=== PATIENT | female | born 1940 | race Caucasian/White ===

== ENCOUNTER 2016-11-06 03:12 | Inpatient (IN) | payer MEDICARE, OTHER ==
[2016-11-06 03:50] LABS: BASO # 0.1 K/uL (0.0-0.2); BASO % 1.4 % (0.0-2.0); EOS # 0.4 K/uL (0.0-0.7); EOS % 4.8 % (0.0-4.0); HEMATOCRIT 42.8 % (34.0-47.0); LYMPH # 2.3 K/uL (1.0-4.3); LYMPH % 26.9 % (20.0-40.0); MEAN CELL VOLUME 80.8 fL (81.0-99.0); MEAN CORPUSCULAR HEMOGLOBIN 26.1 pg (27.0-31.0); MEAN CORPUSCULAR HGB CONC 32.2 g/dL (33.0-37.0); MEAN PLATELET VOLUME 8.9 fL (7.2-11.7); MONO # 0.5 K/uL (0.0-0.8); MONO % 5.5 % (0.0-10.0); RED CELL DISTRIBUTION WIDTH 14.2 % (11.5-14.5); WHITE BLOOD COUNT 8.5 K/uL (4.8-10.8)
[2016-11-06 03:56] LABS: CHLORIDE 96 mmol/L (98-107); POTASSIUM 3.6 mmol/L (3.6-5.2); SODIUM 135 mmol/L (132-148)
[2016-11-06 03:58] LABS: GFR AFRICAN-AMERICAN > 60; INR 0.9
[2016-11-06 03:59] LABS: ALB/GLOB RATIO 1.1 (1.0-2.1); ALKALINE PHOSPHATASE 99 U/L (38-126); ALT/SGPT 31 U/L (9-52); AST/SGOT 21 U/L (14-36); BILIRUBIN,TOTAL 0.5 mg/dL (0.2-1.3); BLOOD UREA NITROGEN 18 mg/dL (7-17); CARBON DIOXIDE 22 mmol/L (22-30); GLUCOSE,RANDOM 174 mg/dL (65-105); TOTAL PROTEIN 7.3 g/dL (6.3-8.3)
--- NOTE | 2016-11-06 04:41 | C.PDOC ---
History Of Present Illness 76 year old female with a history of asthma presents to the ED with complaints of SOB and coughing at home beginning prior to arrival. Patient denies chest pain, fever, or other complaints at this time. Chief Complaint (Nursing): Shortness Of Breath History Per: Patient History/Exam Limitations: no limitations Onset/Duration Of Symptoms: Hrs Current Symptoms Are (Timing): Still Present Current Respiratory Medications: See Home Med List Associated Symptoms: denies: Fever, Chills, Sweating Reports Recently: Treated By A Physician Recent travel outside of the [place]: No Past Medical History Reviewed: Historical Data, Nursing Documentation, Vital Signs Vital Signs: Last Vital Signs Temp 98 F 11/06/16 03:19 Pulse 77 11/06/16 06:33 Resp 20 11/06/16 06:33 BP 137/56 L 11/06/16 06:33 Pulse Ox 98 11/06/16 06:45 - Medical History PMH: Diabetes, HTN, TIA Family History: States: Unknown Family Hx - Social History Hx Tobacco Use: No Hx Alcohol Use: No Hx Substance Use: No - Immunization History Hx Tetanus Toxoid Vaccination: No Hx Influenza Vaccination: No Hx Pneumococcal Vaccination: No Review Of Systems Constitutional: Negative for: Fever, Chills Cardiovascular: Negative for: Chest Pain Respiratory: Positive for: Cough, Shortness of Breath Gastrointestinal: Negative for: Nausea, Vomiting Neurological: Negative for: Weakness, Numbness Physical Exam - Physical Exam Appears: Non-toxic, Other (Patient is moderately dyspneic ) Skin: Warm, Dry Head: Atraumatic Eye(s): bilateral: Normal Inspection, PERRL, EOMI Oral Mucosa: Moist Neck: Other (Positive JVD ) Chest: Symmetrical, No Deformity Cardiovascular: Rhythm Regular Respiratory: Rales (bilateral rales, more so in the left lung ) Gastrointestinal/Abdominal: Soft, No Tenderness, No Distention, No Guarding, No Rebound Extremity: No Tenderness, No Pedal Edema, No Calf Tenderness, Capillary Refill ( good capillary refill, less than 2 seconds. ), No Swelling Neurological/Psych: Oriented x3, Normal Speech, Normal Cognition, Normal Cranial Nerves, Normal Motor, Normal Sensation ED Course And Treatment - Laboratory Results Result Diagrams: 11/06/16 03:45 11/06/16 03:45 ECG: Interpreted By Me, Viewed By Me ECG Rhythm: Sinus Rhythm, 1st Degree HB, L BBB, PVC ECG Interpretation: No Acute Changes Interpretation Of ECG: NSR with 1st degree av block, LBBB , no acute ST_T changes Rate From EC O2 Sat by Pulse Oximetry: 98 (room air ) Pulse Ox Interpretation: Normal - Radiology CXR: Interpreted by Me, Viewed By Me CXR Interpretation: Yes: Infiltrates, Other (pulm. congestion) - CT Scan/US CT angio Other Rad Studies (CT/US): Read By Radiologist, Radiology Report Reviewed CT/US Interpretation: IMPRESSION: 1. No CT evidence of pulmonary embolism. 2. Interstitial and alveolar opacities. DDX: Pulmonary edema, pneumonia. Clinical correlation is. needed. Disposition Discussed With Dr.: Cynthia Wilson Counseled Patient/Family Regarding: Diagnosis - Disposition Disposition: HOSPITALIZED Disposition Time: 07:00 Condition: STABLE Forms: [facility] (H[place]er) - Clinical Impression Clinical Impression: Dyspnea, Respiratory distress, Pneumonia, Pulmonary edema - Scribe Statement The provider has reviewed the documentation as recorded by the Scribdhaval Flores All medical record entries made by the Scribe were at my direction and personally dictated by me. I have reviewed the chart and agree that the record accurately reflects my personal performance of the history, physical exam, medical decision making, and the department course for this patient. I have also personally directed, reviewed, and agree with the discharge instructions and disposition.
[2016-11-06] MEDS ORDERED: Iodixanol 320 mg/ml 150 ml Bottle IV ONE (04:43)
[2016-11-06] MEDS ORDERED: cefTRIAXone IV 1 gm in Dextros 50 ML IVPB ONE ×2 (06:43→06:50)
[2016-11-06] MEDS ORDERED: Azithromycin 500mg/250ML NS 500 MG/250 ML BAG IV STA (06:43)
--- NOTE | 2016-11-06 06:43 | CT ---
EXAM: CT Angiography Chest With Intravenous Contrast CLINICAL HISTORY: 76 years old, female; Signs and symptoms; Shortness of breath; Additional info: Sob/ elevated d-dimer TECHNIQUE: Axial computed tomographic angiography images of the chest with intravenous contrast using pulmonary embolism protocol. This CT exam was performed using one or more of the following dose reduction techniques: automated exposure control, adjustment of the mA and/or kV according to patient size, and/or use of iterative reconstruction technique. MIP reconstructed images were created and reviewed. Coronal and sagittal reformatted images were created and reviewed. CONTRAST: 100 mL of VISIPAQUE administered intravenously. COMPARISON: CR - RIBS AND CHEST LT 03/29/2015 10:24:13 PM FINDINGS: Pulmonary arteries: No pulmonary embolism. Aorta: Mild atherosclerotic disease. No aneurysm. Inferior vena cava: Retrograde filling of IVC and hepatic veins. Lungs: Mild mosaic pattern of lung parenchyma. Mild interlobular septal thickening. Scattered patchy groundglass/airspace opacities, RIGHT greater than LEFT. Pleural space: No significant effusion. No pneumothorax. Heart: Mild cardiomegaly. No significant pericardial effusion. Coronary artery calcifications. Mediastinum: Probable small hiatal hernia. Bones/joints: No acute fracture. No dislocation. Soft tissues: Few small breast calcifications. Lymph nodes: No pathologically enlarged lymph nodes. IMPRESSION: 1. No CT evidence of pulmonary embolism. 2. Interstitial and alveolar opacities. DDX: Pulmonary edema, pneumonia. Clinical correlation is needed. 3. Incidental/non-acute findings are described above.
[2016-11-06] MEDS ORDERED: Azithromycin 500mg/250ML NS 500 MG/250 ML BAG IVPB ONE (06:59)
--- NOTE | 2016-11-06 08:37 | RAD ---
PROCEDURE: CHEST RADIOGRAPH, 1 VIEW HISTORY: Shortness of breath COMPARISON: 03/29/2015 FINDINGS: LUNGS: Dense consolidative opacities throughout the right lung as well as at the left lung base suggestive for edema and or infiltrate. Clinical correlation. Question small bilateral pleural effusions. PLEURA: As above. CARDIOVASCULAR: Cardiomegaly. OSSEOUS STRUCTURES: Degenerative changes in the spine and shoulders. Question calcific tendinopathy of the right proximal humerus. VISUALIZED UPPER ABDOMEN: Normal. OTHER FINDINGS: None. IMPRESSION: Dense consolidative opacities throughout the right lung as well as at the left lung base suggestive for edema and or infiltrate. Clinical correlation. Question small bilateral pleural effusions.
[2016-11-06] MEDS: Albuterol-Ipratrop 3 mg / 0.5 (3 ml) UD INH SCH ×2 (13:34→19:08)
[2016-11-06] MEDS: Enoxaparin 40 mg Syringe SC SCH (13:39)
[2016-11-06] MEDS: Pantoprazole 40 mg EC Tab PO SCH (13:42)
[2016-11-06] MEDS: Azithromycin 500 MG in Sodium Chloride 0.9% 250 ML IVPB SCH (13:42)
[2016-11-06] MEDS: Fluticasone-Salmeterol 250-50mcg Diskus INH SCH (19:07)
[2016-11-06] MEDS ORDERED: Rosuvastatin Calcium 2.5 mg Tab PO SCH (22:00)
--- NOTE | 2016-11-06 22:11 | CP.PCM.HP ---
History of Present Illness - History of Present Illness History of Present Illness: 76 yo F with PMH of HTN, DM, TIA and asthma presents to ED with c/o dyspnea and cough. 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 Denies fever, chills, chest pain, nasal symptoms, sore throat, n/v/d, abdominal pain . Abnormal CXR noted on presentation Present on Admission - Present on Admission Any Indicators Present on Admission: No Review of Systems - Respiratory Respiratory: Cough, Dyspnea Past Patient History - Past Medical History & Family History Past Medical History?: Yes - Past Social History Smoking Status: Never Smoked - CARDIAC Hx Hypertension: Yes - PULMONARY Hx Respiratory Disorders: No - NEUROLOGICAL Hx Transient Ischemic Attacks (TIA): Yes - HEENT Hx HEENT Problems: No Other/Comment: left ear problems hearing - ENDOCRINE/METABOLIC Hx Diabetes Mellitus Type 1: No Hx Diabetes Mellitus Type 2: Yes - HEMATOLOGICAL/ONCOLOGICAL Hx Blood Disorders: No - INTEGUMENTARY Hx Dermatological Problems: No - MUSCULOSKELETAL/RHEUMATOLOGICAL Hx Musculoskeletal Disorders: No Hx Falls: Yes - GASTROINTESTINAL Hx Gastrointestinal Disorders: No - GENITOURINARY/GYNECOLOGICAL Hx Genitourinary Disorders: No - PSYCHIATRIC Hx Substance Use: No - SURGICAL HISTORY Hx Cardiac Catheterization: Yes - ANESTHESIA Hx Anesthesia: Yes Hx Anesthesia Reactions: No Hx Malignant Hyperthermia: No Meds Home Medications: Home Medication List Medication Instructions Recorded Confirmed Type Azithromycin [Zithromax] 250 mg PO DAILY #4 tab 11/11/16 Rx Methylprednisolone [Medrol Dose 4 mg PO DAILY #21 mg 11/11/16 Rx Pack (21 tabs)] Allergies/Adverse Reactions: Allergies Allergy/AdvReac Type Severity Reaction Status Date / Time diazepam [From Valium] Allergy Verified 11/06/16 03:23 Physical Exam - Constitutional Appears: Well - Head Exam Head Exam: ATRAUMATIC, NORMAL INSPECTION, NORMOCEPHALIC - Eye Exam Eye Exam: EOMI, Normal appearance, PERRL - ENT Exam ENT Exam: Mucous Membranes Moist, Normal Exam - Neck Exam Neck exam: Positive for: Normal Inspection - Respiratory Exam Respiratory Exam: Decreased Breath Sounds - Cardiovascular Exam Cardiovascular Exam: REGULAR RHYTHM - GI/Abdominal Exam GI & Abdominal Exam: Diminished Bowel Sounds, Soft - Rectal Exam Rectal Exam: Deferred - Neurological Exam Neurological exam: Alert, Oriented x3 Results - Vital Signs Recent Vital Signs: Last Vital Signs Temp 98.6 F 11/06/16 15:12 Pulse 84 11/06/16 16:00 Resp 20 11/06/16 15:12 BP 135/50 L 11/06/16 17:34 Pulse Ox 99 11/06/16 15:12 - Labs Result Diagrams: 11/06/16 03:45 11/06/16 03:45 Labs: Laboratory Results - last 24 hr 11/06/16 11/06/16 11/06/16 08:40 11:13 16:44 POC Glucose (mg/dL) 146 H 171 H 136 H 11/06/16 21:03 POC Glucose (mg/dL) 140 H Assessment & Plan (1) Confusion Status: Acute (2) Diabetes mellitus Status: Acute (3) Dizziness Status: Acute (4) Fall due to stumbling Status: Acute (5) Foot injury Status: Acute (6) HTN (hypertension) Status: Chronic (7) Nausea Status: Acute (8) Positional vertigo Status: Acute (9) Prophylactic measure Status: Acute (10) Vertigo Status: Acute (11) Wrist injury Status: Acute - Assessment and Plan (Free Text) Plan: solumedrol duoneb advair iv abx lasix arnulfo other meds as ordered f/u labs and imaging cardio pulm
[2016-11-07] MEDS: Albuterol-Ipratrop 3 mg / 0.5 (3 ml) UD INH SCH ×4 (01:53→19:04)
[2016-11-07] MEDS: Fluticasone-Salmeterol 250-50mcg Diskus INH SCH (07:48)
[2016-11-07] MEDS: Azithromycin 500 MG in Sodium Chloride 0.9% 250 ML IVPB SCH (09:44)
[2016-11-07] MEDS: Pantoprazole 40 mg EC Tab PO SCH (09:45)
[2016-11-07] MEDS: Enoxaparin 40 mg Syringe SC SCH (09:45)
--- NOTE | 2016-11-07 12:29 | CP.PCM.CON ---
History of Present Illness - History of Present Illness History of Present Illness: Consult requested for evaluation of SOB and CHF exacerbation with bilateral pulmonary infiltrates HPI: 76-year-old female with past medical history significant for hypertension diabetes mellitus COPD presenting with complains of shortness of breath and productive cough. Patient being consulted for evaluation of CHF exacerbation. On initial presentation chest x-ray showed dense opacities throughout the right lung and left lung base. CT angiogram was done which ruled out PE showing groundglass opacities more on the right. Patient denied having any fever chills chest pain abdominal pain hemoptysis. EKG done on presentation showed normal sinus rhythm first degree AV block with PVCs left bundle branch. At baseline she has NYHA functional class I/II dyspnea. Denies any chest pains. Review of Systems - Review of Systems All systems: reviewed and no additional remarkable complaints except - Constitutional Constitutional: As Per HPI, Fatigue - EENT Eyes: As Per HPI. absent: Blind Spots, Blurred Vision, Change in Vision, Decreased Night Vision, Diplopia, Discharge, Dry Eye, Exophthalmos, Floaters, Irritation, Itchy Eyes, Loss of Peripheral Vision, Pain, Photophobia, Requires Corrective Lenses, Sees Flashes, Spots in Vision, Tunnel Vision, Other Visual Disturbances, Loss of Vision, Other Ears: As Per HPI. absent: Decreased Hearing, Ear Discharge, Ear Pain, Tinnitus , Abnormal Hearing, Disequilibrium, Dizziness, Other Nose/Mouth/Throat: As Per HPI. absent: Epistaxis, Nasal Congestion, Nasal Discharge, Nasal Obstruction, Nasal Trauma, Nose Pain, Post Nasal Drip, Sinus Pain, Sinus Pressure, Bleeding Gums, Change in Voice, Dental Pain, Dry Mouth, Dysphagia, Halitosis, Hoarsness, Lip Swelling, Mouth Lesions, Mouth Pain, Odynophagia, Sore Throat, Throat Swelling, Tongue Swelling, Facial Pain, Neck Pain, Neck Mass, Other - Breasts Breasts: As Per HPI - Cardiovascular Cardiovascular: Dyspnea, Pedal Edema. absent: As Per HPI, Acrocyanosis, Chest Pain, Chest Pain at Rest, Chest Pain with Activity, Claudication, Diaphoresis, Dyspnea on Exertion, Edema, Irregular Heart Rhythm, Pain Radiating to Arm/Neck/ Jaw, Leg Edema, Leg Ulcers, Lightheadedness, Orthopnea, Palpitations, Paroxysmal Nocturnal Dyspnea, Radiating Pain, Rapid Heart Rate, Slow Heart Rate , Syncope, Other - Respiratory Respiratory: As Per HPI, Cough, Dyspnea on Exertion, Wheezing, Excessive Mucous Production, Change in Mucous Color. absent: Dyspnea, Hemoptysis, Snoring, Stridor, Pain on Inspiration, Chest Congestion, Pain with Coughing, Other - Genitourinary Genitourinary: As Per HPI - Reproductive: Female Reproductive:Female: As Per HPI - Musculoskeletal Musculoskeletal: As Per HPI - Integumentary Integumentary: As Per HPI. absent: Acne, Alopecia, Bleeding Lesions, Change in Hair, Change in Nails, Change in Pigmentation, Changing Lesions, Dry Skin, Erythema, Furuncle, Hirsutism, Lesions, New Lesions, Non-Healing Lesions, Photosensitivity, Pruritus, Rash, Skin Pain, Skin Ulcer, Sores, Striae, Swelling , Unusual Bruising, Wounds, Jaundice, Other - Neurological Neurological: As Per HPI. absent: Abnormal Gait, Abnormal Hearing, Abnormal Movements, Abnormal Speech, Behavioral Changes, Burning Sensations, Confusion, Convulsions, Disequilibrium, Dizziness, Numbness, Focal Weakness, Frequent Falls , Headaches, Lack of Coordination, Loss of Vision, Memory Loss, Paresthesias, Radicular Pain, Restless Legs, Sensory Deficit, Syncope, Tingling, Tremor, Vertigo, Weakness, Other Visual Disturbances, Other - Psychiatric Psychiatric: As Per HPI. absent: Abnormal Sleep Pattern, Anhedonia, Anxiety, Auditory Hallucinations, Behavioral Changes, Change in Appetite, Change in Libido, Confusion, Depression, Difficulty Concentrating, Hallucinations, Homicidal Ideation, Hopelessness, Irritability, Memory Loss, Mood Swings, Panic Attacks, Paranoia, Suicidal Ideation, Visual Hallucinations, Tactile Hallucinations, Other - Endocrine Endocrine: As Per HPI. absent: Change in Body Appearance, Change in Libido, Cold Intolorance, Deepening of Voice, Excessive Sweating, Fatigue, Flushing, Heat Intolorance, Increase in Ring/Shoe/Hat Size, Palpitations, Polydipsia, Polyphagia, Polyuria, Other - Hematologic/Lymphatic Hematologic: As Per HPI Past Patient History - Past Medical History & Family History Past Medical History?: Yes Pertinent Family History: +ve for HTN and DM - Past Social History Smoking Status: Never Smoked - CARDIAC Hx Hypertension: Yes - PULMONARY Hx Respiratory Disorders: No - NEUROLOGICAL Hx Transient Ischemic Attacks (TIA): Yes - HEENT Hx HEENT Problems: No Other/Comment: left ear problems hearing - ENDOCRINE/METABOLIC Hx Diabetes Mellitus Type 1: No Hx Diabetes Mellitus Type 2: Yes - HEMATOLOGICAL/ONCOLOGICAL Hx Blood Disorders: No - INTEGUMENTARY Hx Dermatological Problems: No - MUSCULOSKELETAL/RHEUMATOLOGICAL Hx Musculoskeletal Disorders: No Hx Falls: Yes - GASTROINTESTINAL Hx Gastrointestinal Disorders: No - GENITOURINARY/GYNECOLOGICAL Hx Genitourinary Disorders: No - PSYCHIATRIC Hx Substance Use: No - SURGICAL HISTORY Hx Cardiac Catheterization: Yes - ANESTHESIA Hx Anesthesia: Yes Hx Anesthesia Reactions: No Hx Malignant Hyperthermia: No Meds Home Medications: Home Medication List Medication Instructions Recorded Confirmed Type Azithromycin [Zithromax] 250 mg PO DAILY #4 tab 11/11/16 Rx Methylprednisolone [Medrol Dose 4 mg PO DAILY #21 mg 11/11/16 Rx Pack (21 tabs)] Allergies/Adverse Reactions: Allergies Allergy/AdvReac Type Severity Reaction Status Date / Time diazepam [From Valium] Allergy Verified 11/06/16 03:23 - Medications Medications: Current Medications Albuterol/Ipratropium (Duoneb 3 Mg/0.5 Mg (3 Ml) Ud) 3 ml INH RQ6 [facility] Last Admin: 11/07/16 07:48 Dose: 3 ml Amlodipine Besylate (Norvasc) 10 mg PO DAILY [facility] Last Admin: 11/07/16 09:45 Dose: 10 mg Carvedilol (Coreg) 12.5 mg PO BID [facility] Last Admin: 11/07/16 09:45 Dose: 12.5 mg Enoxaparin Sodium (Lovenox) 40 mg SC DAILY [facility] Last Admin: 11/07/16 09:45 Dose: 40 mg Glipizide (Glucotrol) 10 mg PO DAILY [facility] Last Admin: 11/07/16 09:45 Dose: 10 mg Hydrochlorothiazide (Microzide) 12.5 mg PO DAILY [facility] Last Admin: 11/07/16 09:45 Dose: 12.5 mg Azithromycin 500 mg/ Sodium (Chloride) 250 mls @ 250 mls/hr IVPB DAILY [facility] Last Admin: 11/07/16 09:44 Dose: 250 mls/hr Ceftriaxone Sodium 1 gm/ (Sodium Chloride) 100 mls @ 100 mls/hr IVPB Q12H [facility] Last Admin: 11/07/16 05:09 Dose: 100 mls/hr Lisinopril (Zestril) 40 mg PO DAILY [facility] Last Admin: 11/07/16 09:45 Dose: 40 mg Losartan Potassium (Cozaar) 100 mg PO DAILY [facility] Last Admin: 11/07/16 09:45 Dose: 100 mg Metformin HCl (Glucophage) 500 mg PO BID [facility] Last Admin: 11/07/16 09:45 Dose: 500 mg Pantoprazole Sodium (Protonix Ec Tab) 40 mg PO DAILY [facility] Last Admin: 11/07/16 09:45 Dose: 40 mg Pneumococcal Polyvalent Vaccine (Pneumovax 23 Vaccine) 0.5 ml IM .ONCE ONE Stop: 11/08/16 10:01 Rosuvastatin Calcium (Crestor) 5 mg PO HS [facility] Last Admin: 11/06/16 23:40 Dose: 5 mg Fluticasone/Salmeterol (Advair Diskus 250/50) 1 puff INH RQ12 [facility] Last Admin: 11/07/16 07:48 Dose: 1 puff Physical Exam - Constitutional Appears: Well - Head Exam Head Exam: ATRAUMATIC, NORMAL INSPECTION, NORMOCEPHALIC - Eye Exam Eye Exam: EOMI, Normal appearance, PERRL Pupil Exam: NORMAL ACCOMODATION, PERRL - ENT Exam ENT Exam: Mucous Membranes Moist, Normal Exam - Neck Exam Neck exam: Positive for: Normal Inspection - Respiratory Exam Respiratory Exam: Clear to Auscultation Bilateral, Prolonged Expiratory Phase, NORMAL BREATHING PATTERN - Cardiovascular Exam Cardiovascular Exam: REGULAR RHYTHM, RRR, +S1, +S2, Systolic Murmur - GI/Abdominal Exam GI & Abdominal Exam: Normal Bowel Sounds, Soft. absent: Tenderness - Extremities Exam Extremities exam: Positive for: normal inspection - Back Exam Back exam: NORMAL INSPECTION - Neurological Exam Neurological exam: Alert, CN II-XII Intact, Oriented x3, Reflexes Normal - Psychiatric Exam Psychiatric exam: Normal Affect, Normal Mood - Skin Skin Exam: Dry, Intact, Normal Color, Warm Results - Vital Signs Recent Vital Signs: Last Vital Signs Temp 98.0 F 11/07/16 07:36 Pulse 80 11/07/16 07:50 Resp 18 11/07/16 07:36 BP 136/63 11/07/16 09:45 Pulse Ox 98 11/07/16 07:36 - Labs Result Diagrams: 11/06/16 03:45 11/06/16 03:45 Labs: Laboratory Results - last 24 hr 0811/06/16 11/07/16 16:44 21:03 06:35 POC Glucose (mg/dL) 136 H 140 H 109 11/07/16 11:22 POC Glucose (mg/dL) 189 H Assessment & Plan (1) CHF (congestive heart failure) Assessment and Plan: CHFpEF check Echo sx 2' to pulmonary distress from pneumonia continue abx / bronchodilators Status: Acute (2) Dyspnea Assessment and Plan: 2' to pneumonia and diastolic CHF cont abx BP meds Status: Acute (3) HTN (hypertension) Assessment and Plan: cont with home meds for now Status: Acute (4) Pulmonary edema Status: Acute (5) Respiratory distress Status: Acute
--- NOTE | 2016-11-07 14:22 | CARD ---
APPROVED REPORT EKG Measurement Heart [id number] <Conclusion> Sinus rhythm with 1st degree AV block with frequent premature ventricular complexes Left axis deviation Left bundle branch block Abnormal ECG
--- NOTE | 2016-11-07 15:34 | CP.PCM.CON ---
History of Present Illness - History of Present Illness History of Present Illness: Reason for consultation: Respiratory distress; CT shows pulmonary edema vs possible pneumonia Patient is a 76 year old female with past medical history of asthma, DM, and HTN who was admitted for SOB and productive cough. Consulted due to CXR findings showing dense consolidative opacities throughout right lung and left lung base. CT angio ruled out PE and shows scattered patchy ground-glass opacities, more on the right. Currently, patient denies fever, chills, chest pain, abdominal pain, hemoptysis, SOB, swelling, N/V/D/C. Patient states her cough has decreased and produces no phlegm. PMHx: Asthma, DM, HTN, TIA Allergies: Diazepam 11/06/16 CTA chest: no PE; interstitial and alveolar opacities; mild atherosclerotic disease; retrograde filling of IVC and hepatic veins; Scattered patchy ground glass opacities, right more than left. 11/06/16 CXR: Dense consolidative opacities throughout right lung and left lung base, probable edema and/or infiltrate. 11/06/16 EC BPM; 1st degree AV block with PVCs (no more than 1 consecutively) ; LBBB Review of Systems - Review of Systems All systems: reviewed and no additional remarkable complaints except (shortness of breath and cough) Past Patient History - Past Medical History & Family History Past Medical History?: Yes - Past Social History Smoking Status: Never Smoked - CARDIAC Hx Hypertension: Yes - PULMONARY Hx Respiratory Disorders: No - NEUROLOGICAL Hx Transient Ischemic Attacks (TIA): Yes - HEENT Hx HEENT Problems: No Other/Comment: left ear problems hearing - ENDOCRINE/METABOLIC Hx Diabetes Mellitus Type 1: No Hx Diabetes Mellitus Type 2: Yes - HEMATOLOGICAL/ONCOLOGICAL Hx Blood Disorders: No - INTEGUMENTARY Hx Dermatological Problems: No - MUSCULOSKELETAL/RHEUMATOLOGICAL Hx Musculoskeletal Disorders: No Hx Falls: Yes - GASTROINTESTINAL Hx Gastrointestinal Disorders: No - GENITOURINARY/GYNECOLOGICAL Hx Genitourinary Disorders: No - PSYCHIATRIC Hx Substance Use: No - SURGICAL HISTORY Hx Cardiac Catheterization: Yes - ANESTHESIA Hx Anesthesia: Yes Hx Anesthesia Reactions: No Hx Malignant Hyperthermia: No Meds Allergies/Adverse Reactions: Allergies Allergy/AdvReac Type Severity Reaction Status Date / Time diazepam [From Valium] Allergy Verified 11/06/16 03:23 - Medications Medications: Current Medications Albuterol/Ipratropium (Duoneb 3 Mg/0.5 Mg (3 Ml) Ud) 3 ml INH RQ6 [facility] Last Admin: 11/07/16 13:06 Dose: 3 ml Amlodipine Besylate (Norvasc) 10 mg PO DAILY [facility] Last Admin: 11/07/16 09:45 Dose: 10 mg Carvedilol (Coreg) 12.5 mg PO BID [facility] Last Admin: 11/07/16 09:45 Dose: 12.5 mg Enoxaparin Sodium (Lovenox) 40 mg SC DAILY [facility] Last Admin: 11/07/16 09:45 Dose: 40 mg Glipizide (Glucotrol) 10 mg PO DAILY [facility] Last Admin: 11/07/16 09:45 Dose: 10 mg Hydrochlorothiazide (Microzide) 12.5 mg PO DAILY [facility] Last Admin: 11/07/16 09:45 Dose: 12.5 mg Azithromycin 500 mg/ Sodium (Chloride) 250 mls @ 250 mls/hr IVPB DAILY [facility] Last Admin: 11/07/16 09:44 Dose: 250 mls/hr Ceftriaxone Sodium 1 gm/ (Sodium Chloride) 100 mls @ 100 mls/hr IVPB Q12H [facility] Last Admin: 11/07/16 05:09 Dose: 100 mls/hr Lisinopril (Zestril) 40 mg PO DAILY [facility] Last Admin: 11/07/16 09:45 Dose: 40 mg Losartan Potassium (Cozaar) 100 mg PO DAILY [facility] Last Admin: 11/07/16 09:45 Dose: 100 mg Metformin HCl (Glucophage) 500 mg PO BID [facility] Last Admin: 11/07/16 09:45 Dose: 500 mg Pantoprazole Sodium (Protonix Ec Tab) 40 mg PO DAILY [facility] Last Admin: 11/07/16 09:45 Dose: 40 mg Pneumococcal Polyvalent Vaccine (Pneumovax 23 Vaccine) 0.5 ml IM .ONCE ONE Stop: 11/08/16 10:01 Rosuvastatin Calcium (Crestor) 5 mg PO HS [facility] Last Admin: 11/06/16 23:40 Dose: 5 mg Fluticasone/Salmeterol (Advair Diskus 250/50) 1 puff INH RQ12 [facility] Last Admin: 11/07/16 07:48 Dose: 1 puff Physical Exam - Head Exam Head Exam: ATRAUMATIC, NORMOCEPHALIC - Eye Exam Eye Exam: Normal appearance - ENT Exam ENT Exam: Mucous Membranes Moist - Neck Exam Neck exam: Positive for: Normal Inspection - Respiratory Exam Respiratory Exam: Decreased Breath Sounds, Rales - Cardiovascular Exam Cardiovascular Exam: REGULAR RHYTHM - GI/Abdominal Exam GI & Abdominal Exam: Normal Bowel Sounds, Soft - Extremities Exam Extremities exam: Positive for: normal inspection Results - Vital Signs Recent Vital Signs: Last Vital Signs Temp 98.0 F 11/07/16 07:36 Pulse 80 11/07/16 07:50 Resp 18 11/07/16 07:36 BP 136/63 11/07/16 09:45 Pulse Ox 98 11/07/16 07:36 - Labs Result Diagrams: 11/06/16 03:45 11/06/16 03:45 Labs: Laboratory Results - last 24 hr 11/06/16 11/06/16 11/07/16 16:44 21:03 06:35 POC Glucose (mg/dL) 136 H 140 H 109 11/07/16 11:22 POC Glucose (mg/dL) 189 H Assessment & Plan (1) Pneumonia Status: Acute Comment: CAT scan of the chest consistent with bilateral opacities right greater than left. Started on IV antibiotics. Followup culture and sensitivity. Consider IV steroids. seen by cardiology. Echocardiogram. Bronchoscopy if no improvement (2) Respiratory distress Status: Acute
[2016-11-07] MEDS: MethylPREDNISolone 40 mg Vial IV SCH ×2 (16:15→22:14)
--- NOTE | 2016-11-07 17:57 | CP.PCM.PN ---
Subjective - Date & Time of Evaluation Date of Evaluation: 11/07/16 Time of Evaluation: 11:40 - Subjective Subjective: clinically same Objective - Vital Signs/Intake and Output Vital Signs (last 24 hours): Temp Pulse Resp BP Pulse Ox 97.6 F 70 20 121/73 97 11/07/16 15:02 11/07/16 15:25 11/07/16 15:02 11/07/16 17:02 11/07/16 15:25 Intake and Output: 11/07/16 11/07/16 06:59 18:59 Intake Total 420 250 Balance 420 250 - Medications Medications: Current Medications Albuterol/Ipratropium (Duoneb 3 Mg/0.5 Mg (3 Ml) Ud) 3 ml INH RQ6 [facility] Last Admin: 11/07/16 13:06 Dose: 3 ml Amlodipine Besylate (Norvasc) 10 mg PO DAILY [facility] Last Admin: 11/07/16 09:45 Dose: 10 mg Carvedilol (Coreg) 12.5 mg PO BID [facility] Last Admin: 11/07/16 17:02 Dose: 12.5 mg Enoxaparin Sodium (Lovenox) 40 mg SC DAILY [facility] Last Admin: 11/07/16 09:45 Dose: 40 mg Glipizide (Glucotrol) 10 mg PO DAILY [facility] Last Admin: 11/07/16 09:45 Dose: 10 mg Hydrochlorothiazide (Microzide) 12.5 mg PO DAILY [facility] Last Admin: 11/07/16 09:45 Dose: 12.5 mg Azithromycin 500 mg/ Sodium (Chloride) 250 mls @ 250 mls/hr IVPB DAILY [facility] Last Admin: 11/07/16 09:44 Dose: 250 mls/hr Ceftriaxone Sodium 1 gm/ (Sodium Chloride) 100 mls @ 100 mls/hr IVPB Q12H [facility] Last Admin: 11/07/16 16:59 Dose: 100 mls/hr Lisinopril (Zestril) 40 mg PO DAILY [facility] Last Admin: 11/07/16 09:45 Dose: 40 mg Losartan Potassium (Cozaar) 100 mg PO DAILY [facility] Last Admin: 11/07/16 09:45 Dose: 100 mg Metformin HCl (Glucophage) 500 mg PO BID [facility] Last Admin: 11/07/16 16:59 Dose: 500 mg Methylprednisolone (Solu-Medrol) 40 mg IV Q8 [facility] Last Admin: 11/07/16 16:15 Dose: 40 mg Pantoprazole Sodium (Protonix Ec Tab) 40 mg PO DAILY [facility] Last Admin: 11/07/16 09:45 Dose: 40 mg Pneumococcal Polyvalent Vaccine (Pneumovax 23 Vaccine) 0.5 ml IM .ONCE ONE Stop: 11/08/16 10:01 Rosuvastatin Calcium (Crestor) 5 mg PO HS [facility] Last Admin: 11/06/16 23:40 Dose: 5 mg - Labs Labs: PT 10.7 SECONDS (9.7-12.2) 11/06/16 03:45 INR 0.9 11/06/16 03:45 APTT 29 SECONDS (21-34) 11/06/16 03:45 - Constitutional Appears: Well - Head Exam Head Exam: ATRAUMATIC, NORMAL INSPECTION, NORMOCEPHALIC - Eye Exam Eye Exam: EOMI, Normal appearance, PERRL Pupil Exam: NORMAL ACCOMODATION, PERRL - ENT Exam ENT Exam: Mucous Membranes Moist, Normal Exam - Neck Exam Neck Exam: Full ROM, Normal Inspection. absent: Lymphadenopathy - Respiratory Exam Respiratory Exam: Decreased Breath Sounds - Cardiovascular Exam Cardiovascular Exam: REGULAR RHYTHM, +S1, +S2 - GI/Abdominal Exam GI & Abdominal Exam: Soft, Diminished Bowel Sounds - Rectal Exam Rectal Exam: Deferred - Neurological Exam Neurological Exam: Alert, Oriented x3 Assessment and Plan (1) Confusion Status: Acute (2) Diabetes mellitus Status: Acute (3) Dizziness Status: Acute (4) Fall due to stumbling Status: Acute (5) Foot injury Status: Acute (6) HTN (hypertension) Status: Chronic (7) Nausea Status: Acute (8) Positional vertigo Status: Acute (9) Prophylactic measure Status: Acute (10) Vertigo Status: Acute (11) Wrist injury Status: Acute - Assessment and Plan (Free Text) Plan: s/p cardio s/p pulm dr laurent arredondo same duonebs solumedrol advair lasix other meds as ordered heart healthy diet
[2016-11-08] MEDS: Albuterol-Ipratrop 3 mg / 0.5 (3 ml) UD INH SCH ×4 (02:29→20:03)
[2016-11-08] MEDS: MethylPREDNISolone 40 mg Vial IV SCH ×3 (06:37→21:37)
[2016-11-08] MEDS: Enoxaparin 40 mg Syringe SC SCH (09:12)
[2016-11-08] MEDS: Pantoprazole 40 mg EC Tab PO SCH (09:12)
[2016-11-08] MEDS: Azithromycin 500 MG in Sodium Chloride 0.9% 250 ML IVPB SCH (09:13)
[2016-11-08] MEDS ORDERED: Pneumococcal 23-Valent Vaccine IM ONE (10:00)
[2016-11-08 11:54] LABS: LEGIONELLA AG URINE NEGATIVE (NEGATIVE)
--- NOTE | 2016-11-08 17:58 | CP.PCM.PN ---
Subjective - Date & Time of Evaluation Date of Evaluation: 11/08/16 Time of Evaluation: 17:50 - Subjective Subjective: Patient seen and examined. Still complaining of cough but shortness of breath much better Afebrile No respiratory distress Objective - Vital Signs/Intake and Output Vital Signs (last 24 hours): Temp Pulse Resp BP Pulse Ox 98.0 F 78 20 115/54 L 100 11/08/16 15:02 11/08/16 15:02 11/08/16 15:02 11/08/16 15:02 11/08/16 15:02 Intake and Output: 11/08/16 11/08/16 06:59 18:59 Intake Total 520 250 Balance 520 250 - Medications Medications: Current Medications Albuterol/Ipratropium (Duoneb 3 Mg/0.5 Mg (3 Ml) Ud) 3 ml INH RQ6 [facility] Last Admin: 11/08/16 13:29 Dose: 3 ml Amlodipine Besylate (Norvasc) 10 mg PO DAILY [facility] Last Admin: 11/08/16 09:13 Dose: 10 mg Carvedilol (Coreg) 12.5 mg PO BID [facility] Last Admin: 11/08/16 09:12 Dose: 12.5 mg Enoxaparin Sodium (Lovenox) 40 mg SC DAILY [facility] Last Admin: 11/08/16 09:12 Dose: 40 mg Glipizide (Glucotrol) 10 mg PO DAILY [facility] Last Admin: 11/08/16 09:13 Dose: 10 mg Hydrochlorothiazide (Microzide) 12.5 mg PO DAILY [facility] Last Admin: 11/08/16 09:12 Dose: 12.5 mg Azithromycin 500 mg/ Sodium (Chloride) 250 mls @ 250 mls/hr IVPB DAILY [facility] Last Admin: 11/08/16 09:13 Dose: 250 mls/hr Ceftriaxone Sodium 1 gm/ (Sodium Chloride) 100 mls @ 100 mls/hr IVPB Q12H [facility] Last Admin: 11/08/16 05:29 Dose: 100 mls/hr Lisinopril (Zestril) 40 mg PO DAILY [facility] Last Admin: 11/08/16 09:12 Dose: 40 mg Losartan Potassium (Cozaar) 100 mg PO DAILY [facility] Last Admin: 11/08/16 09:12 Dose: 100 mg Metformin HCl (Glucophage) 500 mg PO BID [facility] Last Admin: 11/08/16 09:12 Dose: 500 mg Methylprednisolone (Solu-Medrol) 40 mg IV Q8 [facility] Last Admin: 11/08/16 13:01 Dose: 40 mg Pantoprazole Sodium (Protonix Ec Tab) 40 mg PO DAILY [facility] Last Admin: 11/08/16 09:12 Dose: 40 mg Rosuvastatin Calcium (Crestor) 5 mg PO HS [facility] Last Admin: 11/07/16 22:14 Dose: 5 mg - Labs Labs: PT 10.7 SECONDS (9.7-12.2) 11/06/16 03:45 INR 0.9 11/06/16 03:45 APTT 29 SECONDS (21-34) 11/06/16 03:45 - Head Exam Head Exam: ATRAUMATIC, NORMOCEPHALIC - Eye Exam Eye Exam: Normal appearance - ENT Exam ENT Exam: Mucous Membranes Moist - Neck Exam Neck Exam: Normal Inspection - Respiratory Exam Respiratory Exam: Rales, Rhonchi - Cardiovascular Exam Cardiovascular Exam: REGULAR RHYTHM - GI/Abdominal Exam GI & Abdominal Exam: Soft, Normal Bowel Sounds Assessment and Plan (1) Pneumonia Assessment & Plan: Continue IV antibiotics, nebulizer treatment, IV steroids Follow-up chest x-ray and ABG Follow-up Status: Resolved (2) Respiratory distress Status: Resolved
--- NOTE | 2016-11-08 18:12 | CP.PCM.PN ---
Subjective - Date & Time of Evaluation Date of Evaluation: 11/08/16 Time of Evaluation: 12:00 - Subjective Subjective: afebrile clinically same dr mancilla and dr velasquez following on iv abx Objective - Vital Signs/Intake and Output Vital Signs (last 24 hours): Temp Pulse Resp BP Pulse Ox 98.0 F 78 20 133/63 100 11/08/16 15:02 11/08/16 15:02 11/08/16 15:02 11/08/16 18:02 11/08/16 15:02 Intake and Output: 11/08/16 11/08/16 06:59 18:59 Intake Total 520 250 Balance 520 250 - Medications Medications: Current Medications Albuterol/Ipratropium (Duoneb 3 Mg/0.5 Mg (3 Ml) Ud) 3 ml INH RQ6 [facility] Last Admin: 11/08/16 13:29 Dose: 3 ml Amlodipine Besylate (Norvasc) 10 mg PO DAILY [facility] Last Admin: 11/08/16 09:13 Dose: 10 mg Carvedilol (Coreg) 12.5 mg PO BID [facility] Last Admin: 11/08/16 18:02 Dose: 12.5 mg Enoxaparin Sodium (Lovenox) 40 mg SC DAILY [facility] Last Admin: 11/08/16 09:12 Dose: 40 mg Glipizide (Glucotrol) 10 mg PO DAILY [facility] Last Admin: 11/08/16 09:13 Dose: 10 mg Hydrochlorothiazide (Microzide) 12.5 mg PO DAILY [facility] Last Admin: 11/08/16 09:12 Dose: 12.5 mg Azithromycin 500 mg/ Sodium (Chloride) 250 mls @ 250 mls/hr IVPB DAILY [facility] Last Admin: 11/08/16 09:13 Dose: 250 mls/hr Ceftriaxone Sodium 1 gm/ (Sodium Chloride) 100 mls @ 100 mls/hr IVPB Q12H [facility] Last Admin: 11/08/16 18:03 Dose: 100 mls/hr Lisinopril (Zestril) 40 mg PO DAILY [facility] Last Admin: 11/08/16 09:12 Dose: 40 mg Losartan Potassium (Cozaar) 100 mg PO DAILY [facility] Last Admin: 11/08/16 09:12 Dose: 100 mg Metformin HCl (Glucophage) 500 mg PO BID [facility] Last Admin: 11/08/16 18:02 Dose: 500 mg Methylprednisolone (Solu-Medrol) 40 mg IV Q8 [facility] Last Admin: 11/08/16 13:01 Dose: 40 mg Pantoprazole Sodium (Protonix Ec Tab) 40 mg PO DAILY [facility] Last Admin: 11/08/16 09:12 Dose: 40 mg Rosuvastatin Calcium (Crestor) 5 mg PO HS [facility] Last Admin: 11/07/16 22:14 Dose: 5 mg - Labs Labs: PT 10.7 SECONDS (9.7-12.2) 11/06/16 03:45 INR 0.9 11/06/16 03:45 APTT 29 SECONDS (21-34) 11/06/16 03:45 - Constitutional Appears: Well - Head Exam Head Exam: ATRAUMATIC, NORMAL INSPECTION, NORMOCEPHALIC - Eye Exam Eye Exam: EOMI, Normal appearance, PERRL Pupil Exam: NORMAL ACCOMODATION, PERRL - ENT Exam ENT Exam: Mucous Membranes Moist, Normal Exam - Neck Exam Neck Exam: Full ROM, Normal Inspection. absent: Lymphadenopathy - Respiratory Exam Respiratory Exam: Decreased Breath Sounds - Cardiovascular Exam Cardiovascular Exam: REGULAR RHYTHM, +S1, +S2 - GI/Abdominal Exam GI & Abdominal Exam: Soft, Diminished Bowel Sounds - Rectal Exam Rectal Exam: Deferred - Neurological Exam Neurological Exam: Alert, Oriented x3 Assessment and Plan (1) Confusion Status: Acute (2) Diabetes mellitus Status: Acute (3) Dizziness Status: Acute (4) Fall due to stumbling Status: Acute (5) Foot injury Status: Acute (6) HTN (hypertension) Status: Chronic (7) Nausea Status: Acute (8) Positional vertigo Status: Acute (9) Prophylactic measure Status: Acute (10) Vertigo Status: Acute (11) Wrist injury Status: Acute - Assessment and Plan (Free Text) Plan: arnulfo iv abx duonebs solumedrol advair lasix f/u with dr mancilla and dr velasquez f/u labs
--- NOTE | 2016-11-08 18:49 | CP.PCM.PN ---
Subjective - Date & Time of Evaluation Date of Evaluation: 11/08/16 Time of Evaluation: 18:49 - Subjective Subjective: c/o mild cough sob better no cp Objective - Vital Signs/Intake and Output Vital Signs (last 24 hours): Temp Pulse Resp BP Pulse Ox 98.0 F 78 20 133/63 100 11/08/16 15:02 11/08/16 15:02 11/08/16 15:02 11/08/16 18:02 11/08/16 15:02 Intake and Output: 11/08/16 11/08/16 06:59 18:59 Intake Total 520 250 Balance 520 250 - Medications Medications: Current Medications Albuterol/Ipratropium (Duoneb 3 Mg/0.5 Mg (3 Ml) Ud) 3 ml INH RQ6 [facility] Last Admin: 11/08/16 13:29 Dose: 3 ml Amlodipine Besylate (Norvasc) 10 mg PO DAILY [facility] Last Admin: 11/08/16 09:13 Dose: 10 mg Carvedilol (Coreg) 12.5 mg PO BID [facility] Last Admin: 11/08/16 18:02 Dose: 12.5 mg Enoxaparin Sodium (Lovenox) 40 mg SC DAILY [facility] Last Admin: 11/08/16 09:12 Dose: 40 mg Glipizide (Glucotrol) 10 mg PO DAILY [facility] Last Admin: 11/08/16 09:13 Dose: 10 mg Hydrochlorothiazide (Microzide) 12.5 mg PO DAILY [facility] Last Admin: 11/08/16 09:12 Dose: 12.5 mg Azithromycin 500 mg/ Sodium (Chloride) 250 mls @ 250 mls/hr IVPB DAILY [facility] Last Admin: 11/08/16 09:13 Dose: 250 mls/hr Ceftriaxone Sodium 1 gm/ (Sodium Chloride) 100 mls @ 100 mls/hr IVPB Q12H [facility] Last Admin: 11/08/16 18:03 Dose: 100 mls/hr Lisinopril (Zestril) 40 mg PO DAILY [facility] Last Admin: 11/08/16 09:12 Dose: 40 mg Losartan Potassium (Cozaar) 100 mg PO DAILY [facility] Last Admin: 11/08/16 09:12 Dose: 100 mg Metformin HCl (Glucophage) 500 mg PO BID [facility] Last Admin: 11/08/16 18:02 Dose: 500 mg Methylprednisolone (Solu-Medrol) 40 mg IV Q8 [facility] Last Admin: 11/08/16 13:01 Dose: 40 mg Pantoprazole Sodium (Protonix Ec Tab) 40 mg PO DAILY [facility] Last Admin: 11/08/16 09:12 Dose: 40 mg Rosuvastatin Calcium (Crestor) 5 mg PO HS [facility] Last Admin: 11/07/16 22:14 Dose: 5 mg - Labs Labs: PT 10.7 SECONDS (9.7-12.2) 11/06/16 03:45 INR 0.9 11/06/16 03:45 APTT 29 SECONDS (21-34) 11/06/16 03:45 - Constitutional Appears: Well - Head Exam Head Exam: ATRAUMATIC, NORMAL INSPECTION, NORMOCEPHALIC - Eye Exam Eye Exam: EOMI, Normal appearance, PERRL Pupil Exam: NORMAL ACCOMODATION, PERRL - ENT Exam ENT Exam: Mucous Membranes Moist, Normal Exam - Neck Exam Neck Exam: Full ROM, Normal Inspection. absent: Lymphadenopathy - Respiratory Exam Respiratory Exam: Clear to Ausculation Bilateral, NORMAL BREATHING PATTERN - Cardiovascular Exam Cardiovascular Exam: REGULAR RHYTHM, +S1, +S2. absent: Murmur - GI/Abdominal Exam GI & Abdominal Exam: Soft, Normal Bowel Sounds. absent: Tenderness - Rectal Exam Rectal Exam: NORMAL INSPECTION - Extremities Exam Extremities Exam: Full ROM, Normal Capillary Refill, Normal Inspection. absent : Joint Swelling, Pedal Edema - Back Exam Back Exam: NORMAL INSPECTION - Neurological Exam Neurological Exam: Alert, Awake, CN II-XII Intact, Normal Gait, Oriented x3 - Psychiatric Exam Psychiatric exam: Normal Affect, Normal Mood - Skin Skin Exam: Dry, Intact, Normal Color, Warm Assessment and Plan (1) CHF (congestive heart failure) Status: Resolved (2) Dyspnea Status: Resolved (3) HTN (hypertension) Status: Chronic (4) Pneumonia Status: Acute (5) Pulmonary edema Status: Resolved (6) Respiratory distress Status: Resolved
[2016-11-09] MEDS: Albuterol-Ipratrop 3 mg / 0.5 (3 ml) UD INH SCH ×4 (01:13→19:45)
[2016-11-09] MEDS: MethylPREDNISolone 40 mg Vial IV SCH ×3 (05:41→21:03)
[2016-11-09] MEDS: Azithromycin 500 MG in Sodium Chloride 0.9% 250 ML IVPB SCH (10:13)
[2016-11-09] MEDS: Enoxaparin 40 mg Syringe SC SCH (10:14)
[2016-11-09] MEDS: Pantoprazole 40 mg EC Tab PO SCH (10:14)
--- NOTE | 2016-11-09 13:54 | CP.PCM.PN ---
Subjective - Date & Time of Evaluation Date of Evaluation: 11/09/16 Time of Evaluation: 11:30 - Subjective Subjective: Patient seen and examined. Still complaining of slight cough but overall feeling much better Denies fever or chills, denies dyspnea Objective - Vital Signs/Intake and Output Vital Signs (last 24 hours): Temp Pulse Resp BP Pulse Ox 97.2 F L 82 20 134/65 100 11/09/16 08:11 11/09/16 08:11 11/09/16 08:11 11/09/16 10:14 11/09/16 08:11 Intake and Output: 11/09/16 11/09/16 06:59 18:59 Intake Total 420 Balance 420 - Medications Medications: Current Medications Albuterol/Ipratropium (Duoneb 3 Mg/0.5 Mg (3 Ml) Ud) 3 ml INH RQ6 [facility] Last Admin: 11/09/16 13:37 Dose: 3 ml Amlodipine Besylate (Norvasc) 10 mg PO DAILY [facility] Last Admin: 11/09/16 10:14 Dose: 10 mg Carvedilol (Coreg) 12.5 mg PO BID [facility] Last Admin: 11/09/16 10:14 Dose: 12.5 mg Enoxaparin Sodium (Lovenox) 40 mg SC DAILY [facility] Last Admin: 11/09/16 10:14 Dose: 40 mg Glipizide (Glucotrol) 10 mg PO DAILY [facility] Last Admin: 11/09/16 10:14 Dose: 10 mg Hydrochlorothiazide (Microzide) 12.5 mg PO DAILY [facility] Last Admin: 11/09/16 10:15 Dose: 12.5 mg Azithromycin 500 mg/ Sodium (Chloride) 250 mls @ 250 mls/hr IVPB DAILY [facility] Last Admin: 11/09/16 10:13 Dose: 250 mls/hr Ceftriaxone Sodium 1 gm/ (Sodium Chloride) 100 mls @ 100 mls/hr IVPB Q12H [facility] Last Admin: 11/09/16 05:40 Dose: 100 mls/hr Lisinopril (Zestril) 40 mg PO DAILY [facility] Last Admin: 11/09/16 10:14 Dose: 40 mg Losartan Potassium (Cozaar) 100 mg PO DAILY [facility] Last Admin: 11/09/16 10:14 Dose: 100 mg Metformin HCl (Glucophage) 500 mg PO BID [facility] Last Admin: 11/09/16 10:14 Dose: 500 mg Methylprednisolone (Solu-Medrol) 40 mg IV Q8 [facility] Last Admin: 11/09/16 13:02 Dose: 40 mg Pantoprazole Sodium (Protonix Ec Tab) 40 mg PO DAILY [facility] Last Admin: 11/09/16 10:14 Dose: 40 mg Rosuvastatin Calcium (Crestor) 5 mg PO HS [facility] Last Admin: 11/08/16 21:37 Dose: 5 mg - Labs Labs: PT 10.7 SECONDS (9.7-12.2) 11/06/16 03:45 INR 0.9 11/06/16 03:45 APTT 29 SECONDS (21-34) 11/06/16 03:45 - Head Exam Head Exam: ATRAUMATIC, NORMOCEPHALIC - Eye Exam Eye Exam: Normal appearance - ENT Exam ENT Exam: Mucous Membranes Moist - Neck Exam Neck Exam: Normal Inspection - Respiratory Exam Respiratory Exam: Rales - Cardiovascular Exam Cardiovascular Exam: REGULAR RHYTHM - GI/Abdominal Exam GI & Abdominal Exam: Soft, Normal Bowel Sounds Assessment and Plan (1) Pneumonia Assessment & Plan: Continue nebulizer treatment and antibiotics Taper steroids from tomorrow Follow-up chest x-ray Status: Acute (2) Respiratory distress Status: Acute
--- NOTE | 2016-11-09 19:02 | CP.PCM.PN ---
Subjective - Date & Time of Evaluation Date of Evaluation: 11/09/16 Time of Evaluation: 11:00 - Subjective Subjective: clinically same ongoing iv abx Objective - Vital Signs/Intake and Output Vital Signs (last 24 hours): Temp Pulse Resp BP Pulse Ox 97.6 F 82 20 130/66 95 11/09/16 15:04 11/09/16 15:04 11/09/16 15:04 11/09/16 17:25 11/09/16 15:04 Intake and Output: 11/09/16 11/10/16 18:59 06:59 Intake Total 850 Balance 850 - Medications Medications: Current Medications Albuterol/Ipratropium (Duoneb 3 Mg/0.5 Mg (3 Ml) Ud) 3 ml INH RQ6 [facility] Last Admin: 11/09/16 13:37 Dose: 3 ml Amlodipine Besylate (Norvasc) 10 mg PO DAILY [facility] Last Admin: 11/09/16 10:14 Dose: 10 mg Carvedilol (Coreg) 12.5 mg PO BID [facility] Last Admin: 11/09/16 17:25 Dose: 12.5 mg Enoxaparin Sodium (Lovenox) 40 mg SC DAILY [facility] Last Admin: 11/09/16 10:14 Dose: 40 mg Glipizide (Glucotrol) 10 mg PO DAILY [facility] Last Admin: 11/09/16 10:14 Dose: 10 mg Hydrochlorothiazide (Microzide) 12.5 mg PO DAILY [facility] Last Admin: 11/09/16 10:15 Dose: 12.5 mg Azithromycin 500 mg/ Sodium (Chloride) 250 mls @ 250 mls/hr IVPB DAILY [facility] Last Admin: 11/09/16 10:13 Dose: 250 mls/hr Ceftriaxone Sodium 1 gm/ (Sodium Chloride) 100 mls @ 100 mls/hr IVPB Q12H [facility] Last Admin: 11/09/16 17:25 Dose: 100 mls/hr Lisinopril (Zestril) 40 mg PO DAILY [facility] Last Admin: 11/09/16 10:14 Dose: 40 mg Losartan Potassium (Cozaar) 100 mg PO DAILY [facility] Last Admin: 11/09/16 10:14 Dose: 100 mg Metformin HCl (Glucophage) 500 mg PO BID [facility] Last Admin: 11/09/16 17:25 Dose: 500 mg Methylprednisolone (Solu-Medrol) 40 mg IV Q8 [facility] Last Admin: 11/09/16 13:02 Dose: 40 mg Pantoprazole Sodium (Protonix Ec Tab) 40 mg PO DAILY [facility] Last Admin: 11/09/16 10:14 Dose: 40 mg Rosuvastatin Calcium (Crestor) 5 mg PO HS [facility] Last Admin: 11/08/16 21:37 Dose: 5 mg - Labs Labs: PT 10.7 SECONDS (9.7-12.2) 11/06/16 03:45 INR 0.9 11/06/16 03:45 APTT 29 SECONDS (21-34) 11/06/16 03:45 - Constitutional Appears: Well - Head Exam Head Exam: ATRAUMATIC, NORMAL INSPECTION, NORMOCEPHALIC - Eye Exam Eye Exam: EOMI, Normal appearance, PERRL Pupil Exam: NORMAL ACCOMODATION, PERRL - ENT Exam ENT Exam: Mucous Membranes Moist, Normal Exam - Neck Exam Neck Exam: Full ROM, Normal Inspection. absent: Lymphadenopathy - Respiratory Exam Respiratory Exam: Decreased Breath Sounds - Cardiovascular Exam Cardiovascular Exam: REGULAR RHYTHM, +S1, +S2 - GI/Abdominal Exam GI & Abdominal Exam: Soft, Diminished Bowel Sounds - Rectal Exam Rectal Exam: Deferred - Neurological Exam Neurological Exam: Alert, Oriented x3 Assessment and Plan (1) Confusion Status: Acute (2) Diabetes mellitus Status: Acute (3) Dizziness Status: Acute (4) Fall due to stumbling Status: Acute (5) Foot injury Status: Acute (6) HTN (hypertension) Status: Chronic (7) Nausea Status: Acute (8) Positional vertigo Status: Acute (9) Prophylactic measure Status: Acute (10) Vertigo Status: Acute (11) Wrist injury Status: Acute - Assessment and Plan (Free Text) Plan: arnulfo same iv abx duonebs steroid taper as per dr mancilla f/u cxr f/u labs heart healthy diet f/u cardio
[2016-11-10] MEDS: Albuterol-Ipratrop 3 mg / 0.5 (3 ml) UD INH SCH ×4 (01:09→19:29)
--- NOTE | 2016-11-10 02:15 | CP.PCM.PN ---
Subjective - Date & Time of Evaluation Date of Evaluation: 11/09/16 Time of Evaluation: 22:30 - Subjective Subjective: improving mild cough sob resolved Objective - Vital Signs/Intake and Output Vital Signs (last 24 hours): Temp Pulse Resp BP Pulse Ox 97.6 F 82 20 130/66 95 11/09/16 15:04 11/09/16 15:04 11/09/16 15:04 11/09/16 17:25 11/09/16 15:04 Intake and Output: 11/09/16 11/10/16 18:59 06:59 Intake Total 850 320 Balance 850 320 - Medications Medications: Current Medications Albuterol/Ipratropium (Duoneb 3 Mg/0.5 Mg (3 Ml) Ud) 3 ml INH RQ6 [facility] Last Admin: 11/10/16 01:09 Dose: Not Given Amlodipine Besylate (Norvasc) 10 mg PO DAILY [facility] Last Admin: 11/09/16 10:14 Dose: 10 mg Carvedilol (Coreg) 12.5 mg PO BID [facility] Last Admin: 11/09/16 17:25 Dose: 12.5 mg Enoxaparin Sodium (Lovenox) 40 mg SC DAILY [facility] Last Admin: 11/09/16 10:14 Dose: 40 mg Glipizide (Glucotrol) 10 mg PO DAILY [facility] Last Admin: 11/09/16 10:14 Dose: 10 mg Hydrochlorothiazide (Microzide) 12.5 mg PO DAILY [facility] Last Admin: 11/09/16 10:15 Dose: 12.5 mg Azithromycin 500 mg/ Sodium (Chloride) 250 mls @ 250 mls/hr IVPB DAILY [facility] Last Admin: 11/09/16 10:13 Dose: 250 mls/hr Ceftriaxone Sodium 1 gm/ (Sodium Chloride) 100 mls @ 100 mls/hr IVPB Q12H [facility] Last Admin: 11/09/16 17:25 Dose: 100 mls/hr Insulin Aspart (Novolog) 0 unit SC [facility] PRN Reason: Protocol Lisinopril (Zestril) 40 mg PO DAILY [facility] Last Admin: 11/09/16 10:14 Dose: 40 mg Losartan Potassium (Cozaar) 100 mg PO DAILY [facility] Last Admin: 11/09/16 10:14 Dose: 100 mg Metformin HCl (Glucophage) 500 mg PO BID [facility] Last Admin: 11/09/16 17:25 Dose: 500 mg Methylprednisolone (Solu-Medrol) 40 mg IV Q8 [facility] Last Admin: 11/09/16 21:03 Dose: 40 mg Pantoprazole Sodium (Protonix Ec Tab) 40 mg PO DAILY [facility] Last Admin: 11/09/16 10:14 Dose: 40 mg Rosuvastatin Calcium (Crestor) 5 mg PO HS [facility] Last Admin: 11/09/16 21:04 Dose: 5 mg - Labs Labs: PT 10.7 SECONDS (9.7-12.2) 11/06/16 03:45 INR 0.9 11/06/16 03:45 APTT 29 SECONDS (21-34) 11/06/16 03:45 - Constitutional Appears: Well - Head Exam Head Exam: ATRAUMATIC, NORMAL INSPECTION, NORMOCEPHALIC - Eye Exam Eye Exam: EOMI, Normal appearance, PERRL Pupil Exam: NORMAL ACCOMODATION, PERRL - ENT Exam ENT Exam: Mucous Membranes Moist, Normal Exam - Neck Exam Neck Exam: Full ROM, Normal Inspection. absent: Lymphadenopathy - Respiratory Exam Respiratory Exam: Clear to Ausculation Bilateral, NORMAL BREATHING PATTERN - Cardiovascular Exam Cardiovascular Exam: REGULAR RHYTHM, +S1, +S2. absent: Murmur - GI/Abdominal Exam GI & Abdominal Exam: Soft, Normal Bowel Sounds. absent: Tenderness - Rectal Exam Rectal Exam: NORMAL INSPECTION - Extremities Exam Extremities Exam: Full ROM, Normal Capillary Refill, Normal Inspection. absent : Joint Swelling, Pedal Edema - Back Exam Back Exam: NORMAL INSPECTION - Neurological Exam Neurological Exam: Alert, Awake, CN II-XII Intact, Normal Gait, Oriented x3 - Psychiatric Exam Psychiatric exam: Normal Affect, Normal Mood - Skin Skin Exam: Dry, Intact, Normal Color, Warm Assessment and Plan (1) Pneumonia Status: Acute (2) HTN (hypertension) Status: Chronic (3) CHF (congestive heart failure) Status: Resolved (4) Dyspnea Status: Resolved (5) Pulmonary edema Status: Resolved (6) Respiratory distress Status: Resolved
[2016-11-10] MEDS: MethylPREDNISolone 40 mg Vial IV SCH (05:57)
[2016-11-10] MEDS: (Novolog) Insulin Aspart, Recombinant 100 u/ml 10 ml vial SC SCH ×4 (08:30→21:35)
[2016-11-10] MEDS: Enoxaparin 40 mg Syringe SC SCH (09:26)
[2016-11-10] MEDS: Pantoprazole 40 mg EC Tab PO SCH (09:27)
[2016-11-10] MEDS: Azithromycin 500 MG in Sodium Chloride 0.9% 250 ML IVPB SCH (09:31)
--- NOTE | 2016-11-10 11:50 | CP.PCM.PN ---
Subjective - Date & Time of Evaluation Date of Evaluation: 11/10/16 Time of Evaluation: 10:00 - Subjective Subjective: patient seen and examined. Condition continued to improve Slight cough but shortness of breath improving Objective - Vital Signs/Intake and Output Vital Signs (last 24 hours): Temp Pulse Resp BP Pulse Ox 98.0 F 73 20 131/61 97 11/10/16 07:10 11/10/16 07:10 11/10/16 07:10 11/10/16 09:27 11/10/16 07:10 Intake and Output: 11/10/16 11/10/16 06:59 18:59 Intake Total 320 Balance 320 - Medications Medications: Current Medications Albuterol/Ipratropium (Duoneb 3 Mg/0.5 Mg (3 Ml) Ud) 3 ml INH RQ6 [facility] Last Admin: 11/10/16 07:30 Dose: 3 ml Amlodipine Besylate (Norvasc) 10 mg PO DAILY [facility] Last Admin: 11/10/16 09:25 Dose: 10 mg Carvedilol (Coreg) 12.5 mg PO BID [facility] Last Admin: 11/10/16 09:27 Dose: 12.5 mg Enoxaparin Sodium (Lovenox) 40 mg SC DAILY [facility] Last Admin: 11/10/16 09:26 Dose: 40 mg Glipizide (Glucotrol) 10 mg PO DAILY [facility] Last Admin: 11/10/16 09:25 Dose: 10 mg Hydrochlorothiazide (Microzide) 12.5 mg PO DAILY [facility] Last Admin: 11/10/16 09:25 Dose: 12.5 mg Azithromycin 500 mg/ Sodium (Chloride) 250 mls @ 250 mls/hr IVPB DAILY [facility] Last Admin: 11/10/16 09:31 Dose: 250 mls/hr Ceftriaxone Sodium 1 gm/ (Sodium Chloride) 100 mls @ 100 mls/hr IVPB Q12H [facility] Last Admin: 11/10/16 05:58 Dose: 100 mls/hr Insulin Aspart (Novolog) 0 unit SC ACHS [facility] PRN Reason: Protocol Last Admin: 11/10/16 11:34 Dose: 4 unit Lisinopril (Zestril) 40 mg PO DAILY [facility] Last Admin: 11/10/16 09:25 Dose: 40 mg Losartan Potassium (Cozaar) 100 mg PO DAILY [facility] Last Admin: 11/10/16 09:25 Dose: 100 mg Metformin HCl (Glucophage) 500 mg PO BID [facility] Last Admin: 11/10/16 09:26 Dose: 500 mg Methylprednisolone (Solu-Medrol) 40 mg IV Q8 [facility] Last Admin: 11/10/16 05:57 Dose: 40 mg Pantoprazole Sodium (Protonix Ec Tab) 40 mg PO DAILY [facility] Last Admin: 11/10/16 09:27 Dose: 40 mg Rosuvastatin Calcium (Crestor) 5 mg PO HS [facility] Last Admin: 11/09/16 21:04 Dose: 5 mg - Labs Labs: PT 10.7 SECONDS (9.7-12.2) 11/06/16 03:45 INR 0.9 11/06/16 03:45 APTT 29 SECONDS (21-34) 11/06/16 03:45 - Head Exam Head Exam: ATRAUMATIC, NORMOCEPHALIC - Eye Exam Eye Exam: Normal appearance - ENT Exam ENT Exam: Mucous Membranes Moist - Neck Exam Neck Exam: Normal Inspection - Respiratory Exam Respiratory Exam: Rales - Cardiovascular Exam Cardiovascular Exam: REGULAR RHYTHM - GI/Abdominal Exam GI & Abdominal Exam: Soft, Normal Bowel Sounds Assessment and Plan (1) Pneumonia Assessment & Plan: continue antibiotics Will review chest x-ray today Switch to p.o. prednisone Status: Acute (2) Respiratory distress Status: Acute
--- NOTE | 2016-11-10 14:07 | CP.PCM.PN ---
Subjective - Date & Time of Evaluation Date of Evaluation: 11/10/16 Time of Evaluation: 14:00 - Subjective Subjective: PT SEEN AND EXAMIEND TODAY, DENIES ANY CP, RESP EASY AND UNLABORED. NAD Objective - Vital Signs/Intake and Output Vital Signs (last 24 hours): Temp Pulse Resp BP Pulse Ox 98.0 F 73 20 131/61 97 11/10/16 07:10 11/10/16 07:10 11/10/16 07:10 11/10/16 09:27 11/10/16 07:10 Intake and Output: 11/10/16 11/10/16 06:59 18:59 Intake Total 320 Balance 320 - Medications Medications: Current Medications Albuterol/Ipratropium (Duoneb 3 Mg/0.5 Mg (3 Ml) Ud) 3 ml INH RQ6 [facility] Last Admin: 11/10/16 12:00 Dose: 3 ml Amlodipine Besylate (Norvasc) 10 mg PO DAILY [facility] Last Admin: 11/10/16 09:25 Dose: 10 mg Carvedilol (Coreg) 12.5 mg PO BID [facility] Last Admin: 11/10/16 09:27 Dose: 12.5 mg Enoxaparin Sodium (Lovenox) 40 mg SC DAILY [facility] Last Admin: 11/10/16 09:26 Dose: 40 mg Glipizide (Glucotrol) 10 mg PO DAILY [facility] Last Admin: 11/10/16 09:25 Dose: 10 mg Hydrochlorothiazide (Microzide) 12.5 mg PO DAILY [facility] Last Admin: 11/10/16 09:25 Dose: 12.5 mg Azithromycin 500 mg/ Sodium (Chloride) 250 mls @ 250 mls/hr IVPB DAILY [facility] Last Admin: 11/10/16 09:31 Dose: 250 mls/hr Ceftriaxone Sodium 1 gm/ (Sodium Chloride) 100 mls @ 100 mls/hr IVPB Q12H [facility] Last Admin: 11/10/16 05:58 Dose: 100 mls/hr Insulin Aspart (Novolog) 0 unit SC ACHS [facility] PRN Reason: Protocol Last Admin: 11/10/16 11:34 Dose: 4 unit Lisinopril (Zestril) 40 mg PO DAILY [facility] Last Admin: 11/10/16 09:25 Dose: 40 mg Losartan Potassium (Cozaar) 100 mg PO DAILY [facility] Last Admin: 11/10/16 09:25 Dose: 100 mg Metformin HCl (Glucophage) 500 mg PO BID [facility] Last Admin: 11/10/16 09:26 Dose: 500 mg Pantoprazole Sodium (Protonix Ec Tab) 40 mg PO DAILY [facility] Last Admin: 11/10/16 09:27 Dose: 40 mg Prednisone (Prednisone Tab) 20 mg PO DAILY [facility] Last Admin: 11/10/16 13:11 Dose: 20 mg Rosuvastatin Calcium (Crestor) 5 mg PO HS [facility] Last Admin: 11/09/16 21:04 Dose: 5 mg - Labs Labs: PT 10.7 SECONDS (9.7-12.2) 11/06/16 03:45 INR 0.9 11/06/16 03:45 APTT 29 SECONDS (21-34) 11/06/16 03:45 Assessment and Plan - Assessment and Plan (Free Text) Plan: 76 Y/O FEMALE WITH PMHX ASTHMA ADMITTED FOR SOB, COUGH CT CHEST- NO EVIDENCE OF PE, INTERSTITIAL ALVEOLAR OPACITIES, PULMONARY EDEMA, PNEUMONIA PT CONTINUE TO IMPROVE, SLIGHT COUGH BUT STILL MILD SOB CONTINUE ABX, SWITCH TO PO PREDNISONE CHEST XRAY REVIEWED W/DR MONREAL, IMPROVED FROM 11/09 WILL CONTINUE TO MONITOR, REPEAT LAB IN AM MOST LIKELY D/C TOMORROW PER DR MONREAL
--- NOTE | 2016-11-10 15:22 | RAD ---
HISTORY: f/u pneumonia COMPARISON: 11/06/2016 TECHNIQUE: Chest PA and lateral FINDINGS: LUNGS: Improvement in bilateral interstitial infiltrates. PLEURA: No significant pleural effusion identified. No pneumothorax apparent. CARDIOVASCULAR: Normal. OSSEOUS STRUCTURES: No significant abnormalities. VISUALIZED UPPER ABDOMEN: Normal. OTHER FINDINGS: None. IMPRESSION: Improvement in bilateral interstitial infiltrates.
--- NOTE | 2016-11-10 16:28 | CP.PCM.PN ---
Subjective - Date & Time of Evaluation Date of Evaluation: 11/10/16 Time of Evaluation: 11:00 - Subjective Subjective: clinically same sob resolved on iv abx consultants following Objective - Vital Signs/Intake and Output Vital Signs (last 24 hours): Temp Pulse Resp BP Pulse Ox 98.0 F 73 20 131/61 97 11/10/16 07:10 11/10/16 07:10 11/10/16 07:10 11/10/16 09:27 11/10/16 07:10 Intake and Output: 11/10/16 11/10/16 06:59 18:59 Intake Total 320 250 Balance 320 250 - Medications Medications: Current Medications Albuterol/Ipratropium (Duoneb 3 Mg/0.5 Mg (3 Ml) Ud) 3 ml INH RQ6 [facility] Last Admin: 11/10/16 12:00 Dose: 3 ml Amlodipine Besylate (Norvasc) 10 mg PO DAILY [facility] Last Admin: 11/10/16 09:25 Dose: 10 mg Carvedilol (Coreg) 12.5 mg PO BID [facility] Last Admin: 11/10/16 09:27 Dose: 12.5 mg Enoxaparin Sodium (Lovenox) 40 mg SC DAILY [facility] Last Admin: 11/10/16 09:26 Dose: 40 mg Glipizide (Glucotrol) 10 mg PO DAILY [facility] Last Admin: 11/10/16 09:25 Dose: 10 mg Hydrochlorothiazide (Microzide) 12.5 mg PO DAILY [facility] Last Admin: 11/10/16 09:25 Dose: 12.5 mg Azithromycin 500 mg/ Sodium (Chloride) 250 mls @ 250 mls/hr IVPB DAILY [facility] Last Admin: 11/10/16 09:31 Dose: 250 mls/hr Ceftriaxone Sodium 1 gm/ (Sodium Chloride) 100 mls @ 100 mls/hr IVPB Q12H [facility] Last Admin: 11/10/16 05:58 Dose: 100 mls/hr Insulin Aspart (Novolog) 0 unit SC ACHS [facility] PRN Reason: Protocol Last Admin: 11/10/16 11:34 Dose: 4 unit Lisinopril (Zestril) 40 mg PO DAILY [facility] Last Admin: 11/10/16 09:25 Dose: 40 mg Losartan Potassium (Cozaar) 100 mg PO DAILY [facility] Last Admin: 11/10/16 09:25 Dose: 100 mg Metformin HCl (Glucophage) 500 mg PO BID [facility] Last Admin: 11/10/16 09:26 Dose: 500 mg Pantoprazole Sodium (Protonix Ec Tab) 40 mg PO DAILY [facility] Last Admin: 11/10/16 09:27 Dose: 40 mg Prednisone (Prednisone Tab) 20 mg PO DAILY [facility] Last Admin: 11/10/16 13:11 Dose: 20 mg Rosuvastatin Calcium (Crestor) 5 mg PO HS [facility] Last Admin: 11/09/16 21:04 Dose: 5 mg - Labs Labs: PT 10.7 SECONDS (9.7-12.2) 11/06/16 03:45 INR 0.9 11/06/16 03:45 APTT 29 SECONDS (21-34) 11/06/16 03:45 - Constitutional Appears: Well - Head Exam Head Exam: ATRAUMATIC, NORMAL INSPECTION, NORMOCEPHALIC - Eye Exam Eye Exam: EOMI, Normal appearance, PERRL Pupil Exam: NORMAL ACCOMODATION, PERRL - ENT Exam ENT Exam: Mucous Membranes Moist, Normal Exam - Neck Exam Neck Exam: Full ROM, Normal Inspection. absent: Lymphadenopathy - Respiratory Exam Respiratory Exam: Decreased Breath Sounds - Cardiovascular Exam Cardiovascular Exam: REGULAR RHYTHM, +S1, +S2 - GI/Abdominal Exam GI & Abdominal Exam: Soft, Diminished Bowel Sounds - Rectal Exam Rectal Exam: Deferred - Neurological Exam Neurological Exam: Alert, Oriented x3 Assessment and Plan (1) Confusion Status: Acute (2) Diabetes mellitus Status: Acute (3) Dizziness Status: Acute (4) Fall due to stumbling Status: Acute (5) Foot injury Status: Acute (6) HTN (hypertension) Status: Chronic (7) Nausea Status: Acute (8) Positional vertigo Status: Acute (9) Prophylactic measure Status: Acute (10) Vertigo Status: Acute (11) Wrist injury Status: Acute - Assessment and Plan (Free Text) Plan: arnulfo iv abx duonebs prednisone taper meds reviewed arnulfo as ordered f/u cxr discharge planning
[2016-11-11] MEDS: Albuterol-Ipratrop 3 mg / 0.5 (3 ml) UD INH SCH ×3 (01:03→13:48)
--- NOTE | 2016-11-11 06:33 | CP.PCM.PN ---
Subjective - Date & Time of Evaluation Date of Evaluation: 11/10/16 Time of Evaluation: 19:00 - Subjective Subjective: clinically improving cough resolving Objective - Vital Signs/Intake and Output Vital Signs (last 24 hours): Temp Pulse Resp BP Pulse Ox 98.0 F 69 20 130/70 97 11/10/16 23:50 11/11/16 01:00 11/10/16 23:50 11/10/16 23:50 11/10/16 23:50 Intake and Output: 11/10/16 11/11/16 18:59 06:59 Intake Total 250 200 Balance 250 200 - Medications Medications: Current Medications Albuterol/Ipratropium (Duoneb 3 Mg/0.5 Mg (3 Ml) Ud) 3 ml INH RQ6 [facility] Last Admin: 11/11/16 01:03 Dose: Not Given Amlodipine Besylate (Norvasc) 10 mg PO DAILY [facility] Last Admin: 11/10/16 09:25 Dose: 10 mg Carvedilol (Coreg) 12.5 mg PO BID [facility] Last Admin: 11/10/16 17:23 Dose: 12.5 mg Enoxaparin Sodium (Lovenox) 40 mg SC DAILY [facility] Last Admin: 11/10/16 09:26 Dose: 40 mg Glipizide (Glucotrol) 10 mg PO DAILY [facility] Last Admin: 11/10/16 09:25 Dose: 10 mg Hydrochlorothiazide (Microzide) 12.5 mg PO DAILY [facility] Last Admin: 11/10/16 09:25 Dose: 12.5 mg Azithromycin 500 mg/ Sodium (Chloride) 250 mls @ 250 mls/hr IVPB DAILY [facility] Last Admin: 11/10/16 09:31 Dose: 250 mls/hr Ceftriaxone Sodium 1 gm/ (Sodium Chloride) 100 mls @ 100 mls/hr IVPB Q12H [facility] Last Admin: 11/11/16 05:42 Dose: 100 mls/hr Insulin Aspart (Novolog) 0 unit SC ACHS [facility] PRN Reason: Protocol Last Admin: 11/10/16 21:35 Dose: Not Given Lisinopril (Zestril) 40 mg PO DAILY [facility] Last Admin: 11/10/16 09:25 Dose: 40 mg Losartan Potassium (Cozaar) 100 mg PO DAILY [facility] Last Admin: 11/10/16 09:25 Dose: 100 mg Metformin HCl (Glucophage) 500 mg PO BID [facility] Last Admin: 11/10/16 17:23 Dose: 500 mg Pantoprazole Sodium (Protonix Ec Tab) 40 mg PO DAILY [facility] Last Admin: 11/10/16 09:27 Dose: 40 mg Prednisone (Prednisone Tab) 20 mg PO DAILY [facility] Last Admin: 11/10/16 13:11 Dose: 20 mg Rosuvastatin Calcium (Crestor) 5 mg PO HS [facility] Last Admin: 11/10/16 21:36 Dose: 5 mg - Labs Labs: PT 10.7 SECONDS (9.7-12.2) 11/06/16 03:45 INR 0.9 11/06/16 03:45 APTT 29 SECONDS (21-34) 11/06/16 03:45 - Constitutional Appears: Well - Head Exam Head Exam: ATRAUMATIC, NORMAL INSPECTION, NORMOCEPHALIC - Eye Exam Eye Exam: EOMI, Normal appearance, PERRL Pupil Exam: NORMAL ACCOMODATION, PERRL - ENT Exam ENT Exam: Mucous Membranes Moist, Normal Exam - Neck Exam Neck Exam: Full ROM, Normal Inspection. absent: Lymphadenopathy - Respiratory Exam Respiratory Exam: Clear to Ausculation Bilateral, NORMAL BREATHING PATTERN - Cardiovascular Exam Cardiovascular Exam: REGULAR RHYTHM, +S1, +S2. absent: Murmur - GI/Abdominal Exam GI & Abdominal Exam: Soft, Normal Bowel Sounds. absent: Tenderness - Rectal Exam Rectal Exam: NORMAL INSPECTION - Extremities Exam Extremities Exam: Full ROM, Normal Capillary Refill, Normal Inspection. absent : Joint Swelling, Pedal Edema - Back Exam Back Exam: NORMAL INSPECTION - Neurological Exam Neurological Exam: Alert, Awake, CN II-XII Intact, Normal Gait, Oriented x3 - Psychiatric Exam Psychiatric exam: Normal Affect, Normal Mood - Skin Skin Exam: Dry, Intact, Normal Color, Warm Assessment and Plan (1) Pneumonia Status: Acute (2) HTN (hypertension) Status: Chronic (3) CHF (congestive heart failure) Status: Resolved (4) Dyspnea Status: Resolved (5) Pulmonary edema Status: Resolved (6) Respiratory distress Status: Resolved
--- NOTE | 2016-11-11 06:36 | CP.PCM.PN ---
Subjective - Date & Time of Evaluation Date of Evaluation: 11/11/16 Time of Evaluation: 06:36 - Subjective Subjective: back to baseline no more SOB cough resolved Objective - Vital Signs/Intake and Output Vital Signs (last 24 hours): Temp Pulse Resp BP Pulse Ox 98.0 F 69 20 130/70 97 11/10/16 23:50 11/11/16 01:00 11/10/16 23:50 11/10/16 23:50 11/10/16 23:50 Intake and Output: 11/10/16 11/11/16 18:59 06:59 Intake Total 250 200 Balance 250 200 - Medications Medications: Current Medications Albuterol/Ipratropium (Duoneb 3 Mg/0.5 Mg (3 Ml) Ud) 3 ml INH RQ6 [facility] Last Admin: 11/11/16 01:03 Dose: Not Given Amlodipine Besylate (Norvasc) 10 mg PO DAILY [facility] Last Admin: 11/10/16 09:25 Dose: 10 mg Carvedilol (Coreg) 12.5 mg PO BID [facility] Last Admin: 11/10/16 17:23 Dose: 12.5 mg Enoxaparin Sodium (Lovenox) 40 mg SC DAILY [facility] Last Admin: 11/10/16 09:26 Dose: 40 mg Glipizide (Glucotrol) 10 mg PO DAILY [facility] Last Admin: 11/10/16 09:25 Dose: 10 mg Hydrochlorothiazide (Microzide) 12.5 mg PO DAILY [facility] Last Admin: 11/10/16 09:25 Dose: 12.5 mg Azithromycin 500 mg/ Sodium (Chloride) 250 mls @ 250 mls/hr IVPB DAILY [facility] Last Admin: 11/10/16 09:31 Dose: 250 mls/hr Ceftriaxone Sodium 1 gm/ (Sodium Chloride) 100 mls @ 100 mls/hr IVPB Q12H [facility] Last Admin: 11/11/16 05:42 Dose: 100 mls/hr Insulin Aspart (Novolog) 0 unit SC ACHS [facility] PRN Reason: Protocol Last Admin: 11/10/16 21:35 Dose: Not Given Lisinopril (Zestril) 40 mg PO DAILY [facility] Last Admin: 11/10/16 09:25 Dose: 40 mg Losartan Potassium (Cozaar) 100 mg PO DAILY [facility] Last Admin: 08/10/17 09:25 Dose: 100 mg Metformin HCl (Glucophage) 500 mg PO BID [facility] Last Admin: 11/10/16 17:23 Dose: 500 mg Pantoprazole Sodium (Protonix Ec Tab) 40 mg PO DAILY [facility] Last Admin: 11/10/16 09:27 Dose: 40 mg Prednisone (Prednisone Tab) 20 mg PO DAILY [facility] Last Admin: 11/10/16 13:11 Dose: 20 mg Rosuvastatin Calcium (Crestor) 5 mg PO HS [facility] Last Admin: 11/10/16 21:36 Dose: 5 mg - Labs Labs: PT 10.7 SECONDS (9.7-12.2) 11/06/16 03:45 INR 0.9 11/06/16 03:45 APTT 29 SECONDS (21-34) 11/06/16 03:45 - Constitutional Appears: Well - Head Exam Head Exam: ATRAUMATIC, NORMAL INSPECTION, NORMOCEPHALIC - Eye Exam Eye Exam: EOMI, Normal appearance, PERRL Pupil Exam: NORMAL ACCOMODATION, PERRL - ENT Exam ENT Exam: Mucous Membranes Moist, Normal Exam - Neck Exam Neck Exam: Full ROM, Normal Inspection. absent: Lymphadenopathy - Respiratory Exam Respiratory Exam: Clear to Ausculation Bilateral, Prolonged Expiratory Phase, NORMAL BREATHING PATTERN - Cardiovascular Exam Cardiovascular Exam: Diastolic murmur, REGULAR RHYTHM, +S1, +S2, Murmur - GI/Abdominal Exam GI & Abdominal Exam: Soft, Normal Bowel Sounds. absent: Tenderness - Rectal Exam Rectal Exam: NORMAL INSPECTION - Extremities Exam Extremities Exam: Full ROM, Normal Capillary Refill, Normal Inspection. absent : Joint Swelling, Pedal Edema - Back Exam Back Exam: NORMAL INSPECTION - Neurological Exam Neurological Exam: Alert, Awake, CN II-XII Intact, Normal Gait, Oriented x3 - Psychiatric Exam Psychiatric exam: Normal Affect, Normal Mood - Skin Skin Exam: Dry, Intact, Normal Color, Warm Assessment and Plan (1) Pneumonia Status: Resolved (2) HTN (hypertension) Status: Chronic (3) CHF (congestive heart failure) Status: Resolved (4) Dyspnea Status: Resolved (5) Pulmonary edema Status: Resolved (6) Respiratory distress Status: Resolved
[2016-11-11] MEDS: (Novolog) Insulin Aspart, Recombinant 100 u/ml 10 ml vial SC SCH ×2 (09:37→12:49)
[2016-11-11] MEDS: Azithromycin 500 MG in Sodium Chloride 0.9% 250 ML IVPB SCH (09:38)
[2016-11-11] MEDS: Pantoprazole 40 mg EC Tab PO SCH (09:39)
[2016-11-11] MEDS: Enoxaparin 40 mg Syringe SC SCH (09:39)
--- NOTE | 2016-11-11 11:58 | CP.PCM.PN ---
Subjective - Date & Time of Evaluation Date of Evaluation: 11/11/16 Time of Evaluation: 11:00 - Subjective Subjective: Patient seen and examined. Sitting and walking comfortably not in any respiratory distress Objective - Vital Signs/Intake and Output Vital Signs (last 24 hours): Temp Pulse Resp BP Pulse Ox 98.5 F 71 18 133/53 L 100 11/11/16 07:20 11/11/16 07:20 11/11/16 07:20 11/11/16 09:39 11/11/16 07:20 Intake and Output: 11/11/16 11/11/16 06:59 18:59 Intake Total 200 Balance 200 - Medications Medications: Current Medications Albuterol/Ipratropium (Duoneb 3 Mg/0.5 Mg (3 Ml) Ud) 3 ml INH RQ6 [facility] Last Admin: 11/11/16 07:44 Dose: 3 ml Amlodipine Besylate (Norvasc) 10 mg PO DAILY [facility] Last Admin: 11/11/16 09:40 Dose: 10 mg Carvedilol (Coreg) 12.5 mg PO BID [facility] Last Admin: 11/11/16 09:39 Dose: 12.5 mg Enoxaparin Sodium (Lovenox) 40 mg SC DAILY [facility] Last Admin: 11/11/16 09:39 Dose: 40 mg Glipizide (Glucotrol) 10 mg PO DAILY [facility] Last Admin: 11/11/16 09:40 Dose: 10 mg Hydrochlorothiazide (Microzide) 12.5 mg PO DAILY [facility] Last Admin: 11/11/16 09:40 Dose: 12.5 mg Azithromycin 500 mg/ Sodium (Chloride) 250 mls @ 250 mls/hr IVPB DAILY [facility] Last Admin: 11/11/16 09:38 Dose: 250 mls/hr Ceftriaxone Sodium 1 gm/ (Sodium Chloride) 100 mls @ 100 mls/hr IVPB Q12H [facility] Last Admin: 11/11/16 05:42 Dose: 100 mls/hr Insulin Aspart (Novolog) 0 unit SC ACHS [facility] PRN Reason: Protocol Last Admin: 11/11/16 09:37 Dose: 1 unit Lisinopril (Zestril) 40 mg PO DAILY [facility] Last Admin: 11/11/16 09:40 Dose: 40 mg Losartan Potassium (Cozaar) 100 mg PO DAILY [facility] Last Admin: 11/11/16 09:40 Dose: 100 mg Metformin HCl (Glucophage) 500 mg PO BID [facility] Last Admin: 11/11/16 09:40 Dose: 500 mg Pantoprazole Sodium (Protonix Ec Tab) 40 mg PO DAILY [facility] Last Admin: 11/11/16 09:39 Dose: 40 mg Prednisone (Prednisone Tab) 20 mg PO DAILY [facility] Last Admin: 11/11/16 09:40 Dose: 20 mg Rosuvastatin Calcium (Crestor) 5 mg PO [facility] Last Admin: 11/10/16 21:36 Dose: 5 mg - Labs Labs: PT 10.7 SECONDS (9.7-12.2) 11/06/16 03:45 INR 0.9 11/06/16 03:45 APTT 29 SECONDS (21-34) 11/06/16 03:45 - Head Exam Head Exam: ATRAUMATIC, NORMOCEPHALIC - Eye Exam Eye Exam: Normal appearance - ENT Exam ENT Exam: Mucous Membranes Moist - Neck Exam Neck Exam: Normal Inspection - Respiratory Exam Respiratory Exam: Clear to Ausculation Bilateral - Cardiovascular Exam Cardiovascular Exam: REGULAR RHYTHM Assessment and Plan (1) Pneumonia Assessment & Plan: Stable to discharge home on tapering dose of steroids, by mouth antibiotics and follow up in the office Status: Acute (2) Respiratory distress Status: Acute
--- NOTE | 2016-11-11 15:23 | CP.PCM.PN ---
Subjective - Date & Time of Evaluation Date of Evaluation: 11/11/16 Time of Evaluation: 15:22 - Subjective Subjective: PT SEEN BY DR. LANDAVERDE DURING ROUNDS AND OK TO D/C TODAY. ALL D/C AND F/U INFORMATION DONE. NO FURTHER ORDERS. Objective - Vital Signs/Intake and Output Vital Signs (last 24 hours): Temp Pulse Resp BP Pulse Ox 98.5 F 71 18 133/53 L 100 11/11/16 07:20 11/11/16 07:20 11/11/16 07:20 11/11/16 09:39 11/11/16 07:20 Intake and Output: 11/11/16 11/11/16 06:59 18:59 Intake Total 200 Balance 200 - Medications Medications: Current Medications Amlodipine Besylate (Norvasc) 10 mg PO DAILY [facility] Last Admin: 11/11/16 09:40 Dose: 10 mg Carvedilol (Coreg) 12.5 mg PO BID [facility] Last Admin: 11/11/16 09:39 Dose: 12.5 mg Enoxaparin Sodium (Lovenox) 40 mg SC DAILY [facility] Last Admin: 11/11/16 09:39 Dose: 40 mg Glipizide (Glucotrol) 10 mg PO DAILY [facility] Last Admin: 11/11/16 09:40 Dose: 10 mg Hydrochlorothiazide (Microzide) 12.5 mg PO DAILY [facility] Last Admin: 11/11/16 09:40 Dose: 12.5 mg Azithromycin 500 mg/ Sodium (Chloride) 250 mls @ 250 mls/hr IVPB DAILY [facility] Last Admin: 11/11/16 09:38 Dose: 250 mls/hr Ceftriaxone Sodium 1 gm/ (Sodium Chloride) 100 mls @ 100 mls/hr IVPB Q12H [facility] Last Admin: 11/11/16 05:42 Dose: 100 mls/hr Insulin Aspart (Novolog) 0 unit SC ACHS [facility] PRN Reason: Protocol Last Admin: 11/11/16 12:49 Dose: 3 unit Lisinopril (Zestril) 40 mg PO DAILY [facility] Last Admin: 11/11/16 09:40 Dose: 40 mg Losartan Potassium (Cozaar) 100 mg PO DAILY [facility] Last Admin: 11/11/16 09:40 Dose: 100 mg Metformin HCl (Glucophage) 500 mg PO BID [facility] Last Admin: 11/11/16 09:40 Dose: 500 mg Pantoprazole Sodium (Protonix Ec Tab) 40 mg PO DAILY [facility] Last Admin: 11/11/16 09:39 Dose: 40 mg Prednisone (Prednisone Tab) 20 mg PO DAILY [facility] Last Admin: 11/11/16 09:40 Dose: 20 mg Rosuvastatin Calcium (Crestor) 5 mg PO HS [facility] Last Admin: 11/10/16 21:36 Dose: 5 mg - Labs Labs: PT 10.7 SECONDS (9.7-12.2) 11/06/16 03:45 INR 0.9 11/06/16 03:45 APTT 29 SECONDS (21-34) 11/06/16 03:45
[2016-11-11 16:03] VITALS: BP 140/75; PULSE 60; RESP 20; TEMP 99.1; O2SAT 95
--- NOTE | 2016-11-12 07:35 | CARD ---
APPROVED REPORT EXAM: Two-dimensional and M-mode echocardiogram with Doppler and color Doppler. Other Information Quality : GoodRhythm : NSR INDICATION Dyspnea RESPIRATORY DISTRESS, PILM. EDEMA RISK FACTORS Hypertension Diabetes M-Mode DIMENSIONS RVDd2.22 (2.1-3.2cm)Left Atrium (MM)3.89 (2.5-4.0cm) IVSd0.85 (0.7-1.1cm)Aortic Root2.61 (2.2-3.7cm) LVDd5.80 (4.0-5.6cm)Aortic Cusp Exc.1.82 (1.5-2.0cm) PWd0.82 (0.7-1.1cm)FS (%) 37 % LVDs3.64 (2.0-3.8cm)LVEF (%)66 (>50%) Aortic Valve AI P 1/2 [id number] Mitral Valve MV E Dmpdeuva093.8cm/sMV A Febgxrrr655.2cm/sE/A ratio1.2 TDI E/Lateral E'0.0E/Medial E'0.0 Tricuspid Valve TR Peak [id number]/sTR Peak Gr.[id number] LEFT VENTRICLE The left ventricle is normal size. There is normal left ventricular wall thickness. The left ventricular function is normal. The left ventricular ejection fraction is within the normal range. The Ejection Fraction is 55-60%. No regional wall motion abnormalities noted. The left ventricular diastolic function is normal. No left ventricle thrombus noted on this study. There is no ventricular septal defect visualized. There is no left ventricular aneurysm. There is no mass noted in the left ventricle. RIGHT VENTRICLE The right ventricle is normal size. There is normal right ventricular wall thickness. The right ventricular systolic function is normal. ATRIA The left atrium size is normal. The right atrium size is normal. The interatrial septum is intact with no evidence for an atrial septal defect. AORTIC VALVE The aortic valve is normal in structure and function. There is moderate aortic regurgitation. There is no aortic valvular stenosis. There is no aortic valvular vegetation. MITRAL VALVE The mitral valve is normal in structure and function. There is no evidence of mitral valve prolapse. There is no mitral valve stenosis. Mitral regurgitation is mild to moderate. TRICUSPID VALVE The tricuspid valve is normal in structure and function. There is mild tricuspid regurgitation. Right ventricular systolic pressure is estimated at 40-50 mmHg. There is moderate pulmonary hypertension. There is no tricuspid valve prolapse or vegetation. There is no tricuspid valve stenosis. PULMONIC VALVE The pulmonary valve is normal in structure and function. There is no pulmonic valvular regurgitation. There is no pulmonic valvular stenosis. GREAT VESSELS The aortic root is normal in size. The ascending aorta is normal in size. The pulmonary artery is normal. The IVC is normal in size and collapses >50% with inspiration. PERICARDIAL EFFUSION The pericardium appears normal. There is no pleural effusion. <Conclusion> The left ventricle is normal size. The left ventricular function is normal. The Ejection Fraction is 55-60%. There is moderate aortic regurgitation. Mitral regurgitation is mild to moderate. There is mild tricuspid regurgitation. Right ventricular systolic pressure is estimated at 40-50 mmHg. There is moderate pulmonary hypertension.
== END 2016-11-11 16:29 | disposition home or self-care (01) | DRG 193 ==
LOC: C.ER 03:12 → C.6T 06:46
PROVIDERS: ADMIT Internal Medicine Nephrology; ATTEND Internal Medicine Nephrology
DX: J18.9 Pneumonia, unspecified organism (principal); J81.0 Acute pulmonary edema; E11.9 Type 2 diabetes mellitus without complications; I10 Essential (primary) hypertension; Z86.73 Personal history of transient ischemic attack (TIA), and cerebral infarction without residual deficits; S99.829A Other specified injuries of unspecified foot, initial encounter; W01.0XXA Fall on same level from slipping, tripping and stumbling without subsequent striking against object, initial encounter; S69.80XA Other specified injuries of unspecified wrist, hand and finger(s), initial encounter

== ENCOUNTER 2017-02-09 08:58 | Inpatient (IN) | payer MEDICARE, OTHER ==
[2017-02-09 09:03] VITALS: BMI 22.3
[2017-02-09] MEDS ORDERED: Albuterol-Ipratrop 3 mg / 0.5 (3 ml) UD INH STA (09:12)
[2017-02-09 09:29] LABS: BASO # 0.2 K/uL (0.0-0.2); BASO % 2.2 % (0.0-2.0); EOS # 0.3 K/uL (0.0-0.7); EOS % 3.8 % (0.0-4.0); HEMATOCRIT 43.9 % (34.0-47.0); LYMPH # 3.1 K/uL (1.0-4.3); MEAN CELL VOLUME 82.4 fL (81.0-99.0); MEAN CORPUSCULAR HEMOGLOBIN 26.6 pg (27.0-31.0); MEAN CORPUSCULAR HGB CONC 32.3 g/dL (33.0-37.0); MEAN PLATELET VOLUME 8.3 fL (7.2-11.7); MONO # 0.5 K/uL (0.0-0.8); MONO % 6.1 % (0.0-10.0); RED CELL DISTRIBUTION WIDTH 15.8 % (11.5-14.5); WHITE BLOOD COUNT 8.4 K/uL (4.8-10.8)
[2017-02-09 09:32] LABS: ABG ALLEN TEST POS; ARTERIAL BLOOD GAS MODE BiPAP; ARTERIAL BLOOD HGB O2 SAT 90.4 % (95.0-98.0); CARBOXYHEMOGLOBIN 2.3 % (0.5-1.5); DRAW SITE RRA; HHB 6.4 % (0.0-5.0); METHEMOGLOBIN 0.9 % (0.0-3.0)
[2017-02-09 09:37] LABS: CHLORIDE 99 mmol/L (98-107); SODIUM 133 mmol/L (132-148)
[2017-02-09 09:39] LABS: BILIRUBIN,TOTAL 1.1 mg/dL (0.2-1.3); GFR AFRICAN-AMERICAN > 60
[2017-02-09 09:40] LABS: ALB/GLOB RATIO 1.6 (1.0-2.1); ALKALINE PHOSPHATASE 88 U/L (38-126); ALT/SGPT 61 U/L (9-52); AST/SGOT 38 U/L (14-36); BLOOD UREA NITROGEN 14 mg/dL (7-17); CALCIUM 9.1 mg/dl (8.6-10.4); CARBON DIOXIDE 22 mmol/L (22-30); GLUCOSE,RANDOM 254 mg/dL (65-105); TOTAL PROTEIN 7.1 g/dL (6.3-8.3)
--- NOTE | 2017-02-09 10:39 | C.PDOC ---
History Of Present Illness 76 y/o female, with PMHx of asthma, brought to ED by EMS for evaluation of shortness of breath. Pt was given Albuterol treatment en route. On arrival, pt is tachypneic, and short of breath. No chest pain. Time Seen by Provider: 02/09/17 09:09 Chief Complaint (Nursing): Shortness Of Breath History Per: Patient History/Exam Limitations: no limitations Current Symptoms Are (Timing): Still Present Current Respiratory Medications: See Home Med List Associated Symptoms: denies: Fever, Chills, Sweating, Chest Pain, Bloody Cough, Productive Cough, Heart Racing, Leg/Calf Pain, Ankle/Leg Swelling, Dizziness, Light-headedness, Anxiety, Tingling In Hands Or Face, Musle Spasms In Hands Or Feet Recent travel outside of the [place]: No Additional History Per: Patient Past Medical History Reviewed: Historical Data, Nursing Documentation, Vital Signs Vital Signs: Last Vital Signs Temp 97.9 F 02/10/17 08:04 Pulse 84 02/10/17 12:56 Resp 18 02/10/17 08:04 BP 150/60 02/10/17 09:25 Pulse Ox 97 02/10/17 08:04 - Medical History PMH: Arthritis, Diabetes, HTN, TIA Family History: States: Unknown Family Hx - Social History Hx Tobacco Use: No Hx Alcohol Use: No Hx Substance Use: No - Immunization History Hx Tetanus Toxoid Vaccination: No Hx Influenza Vaccination: No Hx Pneumococcal Vaccination: No Review Of Systems Except As Marked, All Systems Reviewed And Found Negative. Constitutional: Negative for: Fever, Chills Cardiovascular: Negative for: Chest Pain, Palpitations Respiratory: Positive for: Shortness of Breath. Negative for: Cough, Hemoptysis Gastrointestinal: Negative for: Nausea, Vomiting, Abdominal Pain Neurological: Negative for: Headache, Dizziness Physical Exam - Physical Exam Appears: Non-toxic, No Acute Distress Skin: Normal Color, Warm, Dry Head: Atraumatic, Normacephalic Eye(s): bilateral: Normal Inspection Oral Mucosa: Moist Neck: Supple Chest: Symmetrical Cardiovascular: Rhythm Regular, No Murmur Respiratory: Rales (at bases), Wheezing (expiratory) Gastrointestinal/Abdominal: Soft, No Tenderness Extremity: Normal ROM, No Pedal Edema Neurological/Psych: Oriented x3, Normal Speech ED Course And Treatment - Laboratory Results Result Diagrams: 02/10/17 07:38 02/10/17 07:38 ECG: Interpreted By Me, Viewed By Me ECG Rhythm: Sinus Rhythm ECG Interpretation: No Acute Changes Interpretation Of ECG: Left axis deviation. LBBB. Unchanged from prior 11/06/16. Rate From EC (bpm) O2 Sat by Pulse Oximetry: 96 (RA) Pulse Ox Interpretation: Normal Medical Decision Making Medical Decision Making: Impression: shortness of breath Blood work, EKG, CXR ordered and reviewed. Pt was given Lasix, Solu-Medrol, and Albuterol treatment. Case discussed with Dr. Ohara who accepts patient under his service for admission. Disposition Discussed With .: Shannen Ohara Doctor Will See Patient In The: ED Counseled Patient/Family Regarding: Diagnosis - Disposition Disposition: HOSPITALIZED Disposition Time: 10:40 Condition: FAIR - Clinical Impression Clinical Impression: Dyspnea, CHF (congestive heart failure) - Scribe Statement The provider has reviewed the documentation as recorded by the Scribe Gio Wilson All medical record entries made by the Scribe were at my direction and personally dictated by me. I have reviewed the chart and agree that the record accurately reflects my personal performance of the history, physical exam, medical decision making, and the department course for this patient. I have also personally directed, reviewed, and agree with the discharge instructions and disposition.
--- NOTE | 2017-02-09 11:02 | RAD ---
PROCEDURE: CHEST RADIOGRAPH, 1 VIEW HISTORY: SOB COMPARISON: Chest radiographs 02/08/2017. FINDINGS: LUNGS: Hazy airspace seen at the bilateral bases and mid left lung zone. PLEURA: No pneumothorax or pleural fluid seen. CARDIOVASCULAR: Cardiac silhouette appears stable, remaining prominent, with mild pulmonary venous congestion appreciated. OSSEOUS STRUCTURES: No significant abnormalities. VISUALIZED UPPER ABDOMEN: Normal. OTHER FINDINGS: None. IMPRESSION: Active CHF suspected though underlying infiltrate or atelectasis are not excluded the mid left lung zone and bilateral bases.
--- NOTE | 2017-02-09 12:08 | CP.PCM.PN ---
Subjective - Date & Time of Evaluation Date of Evaluation: 02/09/17 Time of Evaluation: 12:10 - Subjective Subjective: Progress note. Attending: Dr. Ohara This is a 76 year old female, originally from [place], with past medical history significant for hypertension, diabetes mellitus, COPD, CHF presenting with shortness of breath and non productive cough. Patient is a poor historian. She says the coughing began this morning at 8 am. She also developed some difficulty breathing as well. She received lasix and bipap in the ER. She says she feels better now. She denies chest pain, fevers, chills. She denies having a history of CHF and COPD. She reports having a cardiac cath in the s which was "normal." She says she saw a teletype clerk recently, cannot recall name, who told her "everything was fine." She reports being compliant with all medications but cannot recall the names. She denies any recent changes to her medicines. PMH: HTN, DM, CHF, COPD, glaucoma PSH: cardiac cath Allergies: valium FH: non contributory Social hx: Denies smoking, drinking, drug use. Born in [place]. Lives alone. Does not work. Objective - Vital Signs/Intake and Output Vital Signs (last 24 hours): Temp Pulse Resp BP Pulse Ox 97.6 F 74 18 164/60 H 100 02/09/17 12:03 02/09/17 12:03 02/09/17 12:03 02/09/17 12:03 02/09/17 12:03 Intake and Output: 02/09/17 02/09/17 06:59 18:59 Output Total 450 Balance -450 - Labs Labs: 02/09/17 09:24 02/09/17 09:24 PT 11.6 SECONDS (9.7-12.2) 02/09/17 09:24 INR 1.0 02/09/17 09:24 APTT 27 SECONDS (21-34) 02/09/17 09:24 - Constitutional Appears: Non-toxic, No Acute Distress - Head Exam Head Exam: ATRAUMATIC, NORMAL INSPECTION, NORMOCEPHALIC - Eye Exam Eye Exam: EOMI - ENT Exam ENT Exam: Mucous Membranes Moist - Neck Exam Neck Exam: Full ROM, Normal Inspection - Respiratory Exam Respiratory Exam: Rales. absent: Clear to Ausculation Bilateral - Cardiovascular Exam Cardiovascular Exam: REGULAR RHYTHM, +S1, +S2 - GI/Abdominal Exam GI & Abdominal Exam: Soft, Normal Bowel Sounds. absent: Tenderness - Extremities Exam Extremities Exam: Full ROM, Normal Inspection - Neurological Exam Neurological Exam: Alert, Awake, Oriented x3 - Psychiatric Exam Psychiatric exam: Normal Affect, Normal Mood - Skin Skin Exam: Dry, Intact, Normal Color, Warm Assessment and Plan - Assessment and Plan (Free Text) Assessment: This is a 76 yo female with past medical hx of CHF, COPD, HTN, DM, pulmonary htn presenting with 1. CHF exacerbation -likely diastolic in nature -strict I/O -daily weight -lasix 40 mg IV daily -cardiology consult. Dr. Goodman. recs appreciated. -troponin negative. -BNP normal -EKG pending -CXR shows active chf -continue coreg 12.5 mg po q 12 -continue losartan 100 mg po daily -echo 11/2016 shows normal LV function, pulmonary htn -blood cultures ordered 2. hx of COPD -duonebs -Bipap as needed -arterial blood gas pending 3. hx of DM -ISS -accuchecks -diabetic diet 4. hx of HTN -continue losartan 100 mg po daily -continue hctz 12.5 mg po daily. 5. Pulmonary hypertension -treat underlying heart failure -outpatient pulmonary follow up 6. GI/DVT ppx -SCDs -protonix 40 daily -fall precautions discussed with Dr. Ohara
[2017-02-09] MEDS: (Novolin R) Insulin Human Regular 100 units/ml vial SC SCH ×2 (17:02→21:34)
--- NOTE | 2017-02-09 22:51 | CARD ---
APPROVED REPORT EXAM: Two-dimensional and M-mode echocardiogram with Doppler and color Doppler. Other Information Quality : GoodRhythm : INDICATION Dyspnea Congestive Heart Failure COPD RISK FACTORS Hypertension Diabetes 2D DIMENSIONS IVSd1.1 (0.7-1.1cm)LVDd5.1 (3.9-5.9cm) PWd0.9 (0.7-1.1cm)LVDs3.7 (2.5-4.0cm) FS (%) 26.8 %LVEF (%)49.0 (>50%) M-Mode DIMENSIONS Left Atrium (MM)3.63 (2.5-4.0cm)Aortic Root3.25 (2.2-3.7cm) Aortic Cusp Exc.1.84 (1.5-2.0cm) Aortic Valve AI P 1/2 [id number] Mitral Valve MV E Ajrdxwyn720.7cm/sMV A Kfijiftj362.4cm/sE/A ratio0.9 TDI E/Lateral E'0.0E/Medial E'0.0 Tricuspid Valve TR Peak Zycpbmio598yf/sTR Peak Gr.[id number] LEFT VENTRICLE The left ventricle is normal size. There is normal left ventricular wall thickness. Left ventricle systolic function is normal. The Ejection Fraction is 50% There is normal LV segmental wall motion. Tissue Doppler imaging reveals abnormal left ventricular diastolic dysfunction. RIGHT VENTRICLE The right ventricle is normal size. There is normal right ventricular wall thickness. The right ventricular systolic function is normal. ATRIA The left atrium size is normal. The right atrium size is normal. The interatrial septum is intact with no evidence for an atrial septal defect. AORTIC VALVE The aortic valve is normal in structure. There is moderate aortic regurgitation. There is no aortic valvular stenosis. MITRAL VALVE The mitral valve is normal in structure. There is no evidence of mitral valve prolapse. There is no mitral valve stenosis. Mitral regurgitation is mild. TRICUSPID VALVE The tricuspid valve is normal in structure. There is mild tricuspid regurgitation. Right ventricular systolic pressure is estimated at 30-40 mmHg. There is mild pulmonary hypertension. PULMONIC VALVE The pulmonic valve is not well visualized. There is no pulmonic valvular regurgitation. GREAT VESSELS The aortic root is normal in size. PERICARDIAL EFFUSION There is no significant pericardial effusion. <Conclusion> Left ventricle systolic function is normal. The Ejection Fraction is 50% Diastolic dysfunction. There is moderate aortic regurgitation. Mitral regurgitation is mild. There is mild tricuspid regurgitation. There is mild pulmonary hypertension. There is no pulmonic valvular regurgitation.
--- NOTE | 2017-02-10 06:58 | CP.PCM.CON ---
History of Present Illness - History of Present Illness History of Present Illness: I was asked to see patient by Dr Ohara. Patient is a 76 year old female with PMH HTN, COPD, LBBB who presentes with dyspnea. The patient describes a sensation of shortness of breath associated with cough. Symptoms became progressive. Her cough was productive of sputum. She had chest pain, but in the setting of cough. She had a normal cardiac cath "many years ago". She has routine cardiology follow up with Dr Mayorga. Review of Systems - Constitutional Constitutional: absent: As Per HPI, Anorexia, Chills, Daytime Sleepiness, Excessive Sweating, Fatigue, Fever, Frequent Falls, Headache, Increased Appetite , Lethargy, Malaise, Night Sweats, Snoring, Sleep Apnea, Weight Gain, Weight Loss, Weakness, Other - EENT Eyes: absent: As Per HPI, Blind Spots, Blurred Vision, Change in Vision, Decreased Night Vision, Diplopia, Discharge, Dry Eye, Exophthalmos, Floaters, Irritation, Itchy Eyes, Loss of Peripheral Vision, Pain, Photophobia, Requires Corrective Lenses, Sees Flashes, Spots in Vision, Tunnel Vision, Other Visual Disturbances, Loss of Vision, Other Ears: absent: As Per HPI, Decreased Hearing, Ear Discharge, Ear Pain, Tinnitus, Abnormal Hearing, Disequilibrium, Dizziness, Other Nose/Mouth/Throat: Nasal Congestion - Breasts Breasts: absent: As Per HPI, Change in Shape, Mass, Pain, Nipple Discharge, Nipple Inversion, Skin Changes, Swelling, Other - Cardiovascular Cardiovascular: Chest Pain, Dyspnea - Respiratory Respiratory: Cough, Dyspnea, Chest Congestion - Gastrointestinal Gastrointestinal: absent: As Per HPI, Abdominal Pain, Belching, Bloating, Change in Bowel Habits, Change in Stool Character, Coffee Ground Emesis, Constipation, Cramping, Diarrhea, Dyspepsia, Dysphagia, Early Satiety, Excessive Flatus, Fecal Incontinence, Heartburn, Hematemesis, Hematochezia, Loose Stools, Melena, Nausea, Odynophagia, Temesmus, Vomiting, Other - Genitourinary Genitourinary: absent: As Per HPI, Change in Urinary Stream, Difficulty Urinating, Dysuria, Flank Pain, Hematuria, Pyuria, Nocturia, Urinary Incontinence, Urinary Frequency, Urinary Hesitance, Urinary Urgency, Voiding Freq/Small Amts, Freq UTI, Hx Renal/Bladder Calculi, Hx /Renal Surgery, Bladder Distension, Other - Musculoskeletal Musculoskeletal: absent: As Per HPI, Abnormal Gait, Arthralgias, Atrophy, Back Pain, Deformity, Joint Swelling, Limited Range of Motion, Loss of Height, Muscle Cramps, Muscle Weakness, Myalgias, Neck Pain, Numbness, Radiating Pain into Limb, Stiffness, Tingling, Other - Integumentary Integumentary: absent: As Per HPI, Acne, Alopecia, Bleeding Lesions, Change in Hair, Change in Nails, Change in Pigmentation, Changing Lesions, Dry Skin, Erythema, Furuncle, Hirsutism, Lesions, New Lesions, Non-Healing Lesions, Photosensitivity, Pruritus, Rash, Skin Pain, Skin Ulcer, Sores, Striae, Swelling , Unusual Bruising, Wounds, Jaundice, Other - Neurological Neurological: absent: As Per HPI, Abnormal Gait, Abnormal Hearing, Abnormal Movements, Abnormal Speech, Behavioral Changes, Burning Sensations, Confusion, Convulsions, Disequilibrium, Dizziness, Numbness, Focal Weakness, Frequent Falls , Headaches, Lack of Coordination, Loss of Vision, Memory Loss, Paresthesias, Radicular Pain, Restless Legs, Sensory Deficit, Syncope, Tingling, Tremor, Vertigo, Weakness, Other Visual Disturbances, Other - Psychiatric Psychiatric: absent: As Per HPI, Abnormal Sleep Pattern, Anhedonia, Anxiety, Auditory Hallucinations, Behavioral Changes, Change in Appetite, Change in Libido, Confusion, Depression, Difficulty Concentrating, Hallucinations, Homicidal Ideation, Hopelessness, Irritability, Memory Loss, Mood Swings, Panic Attacks, Paranoia, Suicidal Ideation, Visual Hallucinations, Tactile Hallucinations, Other - Endocrine Endocrine: absent: As Per HPI, Change in Body Appearance, Change in Libido, Cold Intolorance, Deepening of Voice, Excessive Sweating, Fatigue, Flushing, Heat Intolorance, Increase in Ring/Shoe/Hat Size, Palpitations, Polydipsia, Polyphagia, Polyuria, Other - Hematologic/Lymphatic Hematologic: absent: As Per HPI, Easy Bleeding, Easy Bruising, Lymphadenopathy, Other Past Patient History - Past Medical History & Family History Past Medical History?: Yes - Past Social History Smoking Status: Never Smoked - CARDIAC Hx Hypertension: Yes - PULMONARY Hx Respiratory Disorders: No - NEUROLOGICAL Hx Dizziness: Yes Hx Transient Ischemic Attacks (TIA): Yes - HEENT Other/Comment: left ear problems hearing - ENDOCRINE/METABOLIC Hx Endocrine Disorders: Yes Hx Diabetes Mellitus Type 2: Yes - HEMATOLOGICAL/ONCOLOGICAL Hx Blood Disorders: No - INTEGUMENTARY Hx Dermatological Problems: No - MUSCULOSKELETAL/RHEUMATOLOGICAL Hx Arthritis: Yes Hx Falls: No - GASTROINTESTINAL Hx Gastrointestinal Disorders: No - GENITOURINARY/GYNECOLOGICAL Hx Genitourinary Disorders: No - PSYCHIATRIC Hx Substance Use: No - SURGICAL HISTORY Hx Surgeries: Yes Hx Cardiac Catheterization: Yes - ANESTHESIA Hx Anesthesia: Yes Hx Anesthesia Reactions: No Hx Malignant Hyperthermia: No Meds Allergies/Adverse Reactions: Allergies Allergy/AdvReac Type Severity Reaction Status Date / Time diazepam [From Valium] Allergy Verified 02/09/17 09:02 - Medications Medications: Current Medications Carvedilol (Coreg) 12.5 mg PO Q12 [facility] Last Admin: 02/09/17 21:31 Dose: 12.5 mg Furosemide (Lasix) 40 mg IVP DAILY [facility] Hydrochlorothiazide (Microzide) 12.5 mg PO DAILY [facility] Insulin Human Regular (Novolin R) 0 unit SC ACHS [facility] PRN Reason: Protocol Last Admin: 02/09/17 21:34 Dose: Not Given Losartan Potassium (Cozaar) 100 mg PO DAILY [facility] Pantoprazole Sodium (Protonix Inj) 40 mg IVP DAILY [facility] Pneumococcal Polyvalent Vaccine (Pneumovax 23 Vaccine) 0.5 ml IM .ONCE ONE Stop: 02/12/17 10:01 Physical Exam - Constitutional Appears: Non-toxic - Head Exam Head Exam: NORMAL INSPECTION - Eye Exam Eye Exam: Normal appearance - ENT Exam ENT Exam: Mucous Membranes Moist - Neck Exam Neck exam: Positive for: Full Rom - Respiratory Exam Respiratory Exam: Decreased Breath Sounds - Cardiovascular Exam Cardiovascular Exam: REGULAR RHYTHM - GI/Abdominal Exam GI & Abdominal Exam: Normal Bowel Sounds - Rectal Exam Rectal Exam: Deferred - Extremities Exam Extremities exam: Negative for: pedal edema - Back Exam Back exam: NORMAL INSPECTION - Neurological Exam Neurological exam: Alert, Oriented x3 - Psychiatric Exam Psychiatric exam: Normal Affect - Skin Skin Exam: Normal Color Results - Vital Signs Recent Vital Signs: Last Vital Signs Temp 98 F 02/10/17 04:00 Pulse 70 02/10/17 04:00 Resp 20 02/10/17 04:00 BP 130/63 02/10/17 04:00 Pulse Ox 96 02/10/17 04:00 - Labs Result Diagrams: 02/09/17 09:24 02/09/17 09:24 Labs: Laboratory Results - last 24 hr 02/09/17 02/09/17 02/09/17 09:09 09:24 09:24 WBC 8.4 RBC 5.32 H Hgb 14.2 Hct 43.9 MCV 82.4 MCH 26.6 L MCHC 32.3 L RDW 15.8 H Plt Count 271 MPV 8.3 Neut % (Auto) 50.9 Lymph % (Auto) 37.0 [place] % (Auto) 6.1 Eos % (Auto) 3.8 Baso % (Auto) 2.2 H Neut # 4.3 Lymph # 3.1 [place] # 0.5 Eos # 0.3 Baso # 0.2 PT 11.6 INR 1.0 APTT 27 Puncture Site pCO2 pO2 HCO3 ABG pH ABG Total CO2 ABG O2 Saturation ABG Base Excess ABG Hemoglobin ABG Carboxyhemoglobin POC ABG HHb (Measured) ABG Methemoglobin Rebel Test A-a O2 Difference Respiratory Index Hgb O2 Saturation Vent Mode FiO2 Inspiratory BiPAP Expiratory BiPAP Sodium Potassium Chloride Carbon Dioxide Anion Gap BUN Creatinine Est GFR ( Amer) Est GFR (Non-Af Amer) POC Glucose (mg/dL) 267 H Random Glucose Calcium Total Bilirubin AST ALT Alkaline Phosphatase Troponin I NT-Pro-B Natriuret Pep Total Protein Albumin Globulin Albumin/Globulin Ratio 02/09/17 02/09/17 02/09/17 09:24 09:29 11:49 WBC RBC Hgb Hct MCV MCH MCHC RDW Plt Count MPV Neut % (Auto) Lymph % (Auto) [place] % (Auto) Eos % (Auto) Baso % (Auto) Neut # Lymph # [place] # Eos # Baso # PT INR APTT Puncture Site Rra pCO2 40 pO2 58 L HCO3 22.6 ABG pH 7.36 ABG Total CO2 23.8 ABG O2 Saturation 93.4 L ABG Base Excess -2.7 L ABG Hemoglobin 13.5 ABG Carboxyhemoglobin 2.3 H POC ABG HHb (Measured) 6.4 H ABG Methemoglobin 0.9 Rebel Test Pos A-a O2 Difference 249.0 Respiratory Index 4.3 Hgb O2 Saturation 90.4 L Vent Mode Bipap FiO2 50.0 Inspiratory BiPAP 12 Expiratory BiPAP 6 Sodium 133 Potassium 4.0 Chloride 99 Carbon Dioxide 22 Anion Gap 17 BUN 14 Creatinine 0.5 L Est GFR ( Amer) > 60 Est GFR (Non-Af Amer) > 60 POC Glucose (mg/dL) 211 H Random Glucose 254 H Calcium 9.1 Total Bilirubin 1.1 AST 38 H ALT 61 H D Alkaline Phosphatase 88 Troponin I < 0.0120 NT-Pro-B Natriuret Pep 729 Total Protein 7.1 Albumin 4.4 Globulin 2.7 Albumin/Globulin Ratio 1.6 02/09/17 02/09/17 16:10 21:06 WBC RBC Hgb Hct MCV MCH MCHC RDW Plt Count MPV Neut % (Auto) Lymph % (Auto) [place] % (Auto) Eos % (Auto) Baso % (Auto) Neut # Lymph # [place] # Eos # Baso # PT INR APTT Puncture Site pCO2 pO2 HCO3 ABG pH ABG Total CO2 ABG O2 Saturation ABG Base Excess ABG Hemoglobin ABG Carboxyhemoglobin POC ABG HHb (Measured) ABG Methemoglobin Rebel Test A-a O2 Difference Respiratory Index Hgb O2 Saturation Vent Mode FiO2 Inspiratory BiPAP Expiratory BiPAP Sodium Potassium Chloride Carbon Dioxide Anion Gap BUN Creatinine Est GFR ( Amer) Est GFR (Non-Af Amer) POC Glucose (mg/dL) 176 H 225 H Random Glucose Calcium Total Bilirubin AST ALT Alkaline Phosphatase Troponin I NT-Pro-B Natriuret Pep Total Protein Albumin Globulin Albumin/Globulin Ratio - EKG Data EKG Interpreted by: Myself EKG shows normal: Sinus rhythm - EKG Data EKG Specific Queries [place]/QRS: LBBB Assessment & Plan (1) Diastolic dysfunction with acute on chronic heart failure Assessment and Plan: I reviewed the echocardiogram. Left ventricular sstolic functon is normal. There is mild to moderate pulmonary hypertension. Pro BNP is not elevated. recommend continued medical therapy. no evidence of myocardial ischemia currently. Status: Acute (2) Dyspnea Assessment and Plan: improved with BiPAP. medical therapy Status: Acute (3) HTN (hypertension) Assessment and Plan: blood pressure control Status: Chronic
[2017-02-10 07:59] LABS: BASO % 0.1 % (0.0-2.0); HEMATOCRIT 38.1 % (34.0-47.0); LYMPH # 1.8 K/uL (1.0-4.3); LYMPH % 15.9 % (20.0-40.0); MEAN CELL VOLUME 81.7 fL (81.0-99.0); MEAN CORPUSCULAR HEMOGLOBIN 26.5 pg (27.0-31.0); MEAN CORPUSCULAR HGB CONC 32.4 g/dL (33.0-37.0); MEAN PLATELET VOLUME 8.5 fL (7.2-11.7); MONO # 0.7 K/uL (0.0-0.8); MONO % 5.7 % (0.0-10.0); RED CELL DISTRIBUTION WIDTH 15.3 % (11.5-14.5); WHITE BLOOD COUNT 11.6 K/uL (4.8-10.8)
[2017-02-10] MEDS: (Novolin R) Insulin Human Regular 100 units/ml vial SC SCH ×4 (08:00→21:36)
--- NOTE | 2017-02-10 08:05 | HP ---
HISTORY OF PRESENT ILLNESS: A 76-year-old female admitted with asthma and chief complaint of fatigue and shortness of breath. This patient was found to have congestive heart failure. She was placed on BiPAP, given IV Lasix in the ER and advised admission to the hospital for possible congestive heart failure. The patient sees a physician as an outpatient and take inhalers. Does not smoke. PHYSICAL EXAMINATION: GENERAL: The patient is awake, alert, and oriented. VITAL SIGNS: Temperature 98, pulse of 95, blood pressure 120/70. HEENT: Within normal limits. NECK: Supple. CHEST: Symmetrical. There are bilateral rales. HEART: Regular. ABDOMEN: Soft. EXTREMITIES: No edema. IMPRESSION AND PLAN: The patient suffers from congestive heart failure. The patient is on bed rest, diuresis, and BiPAP therapy. Shannen Ohara MD
[2017-02-10 08:40] LABS: CHLORIDE 100 mmol/L (98-107); POTASSIUM 3.9 mmol/L (3.6-5.2); SODIUM 132 mmol/L (132-148)
[2017-02-10 08:42] LABS: ALB/GLOB RATIO 1.6 (1.0-2.1); ALKALINE PHOSPHATASE 54 U/L (38-126); ALT/SGPT 44 U/L (9-52); AST/SGOT 31 U/L (14-36); BILIRUBIN,TOTAL 1.1 mg/dL (0.2-1.3); BLOOD UREA NITROGEN 21 mg/dL (7-17); CARBON DIOXIDE 21 mmol/L (22-30); GFR AFRICAN-AMERICAN > 60; TOTAL PROTEIN 6.3 g/dL (6.3-8.3)
[2017-02-10 08:43] LABS: CALCIUM 8.6 mg/dl (8.6-10.4); GLUCOSE,RANDOM 150 mg/dL (65-105); MAGNESIUM 1.7 mg/dL (1.6-2.3); PHOSPHOROUS 3.7 mg/dL (2.5-4.5)
[2017-02-10] MEDS: Enoxaparin 40 mg Syringe SC SCH (09:32)
[2017-02-10] MEDS ORDERED: HYDROCHLOROTHIAZIDE PO SCH (10:00)
[2017-02-10] MEDS ORDERED: VALSARTAN PO SCH (10:00)
--- NOTE | 2017-02-10 12:49 | CP.PCM.PN ---
Subjective - Date & Time of Evaluation Date of Evaluation: 02/10/17 Time of Evaluation: 10:00 - Subjective Subjective: Medicine Progress Note- Dr Ohara's service Patient seen and examined. The patient states that she feels much better today and is breathing well. Patient states that she used BIPAP which improved her dyspnea. Patient is tolerating her meals and says she enjoyed her breakfast. She was out of bed in chair and breathing on room air without any distress. Patient denies chest pain, dizziness, leg pain, abdominal pain, and weakness. Objective - Vital Signs/Intake and Output Vital Signs (last 24 hours): Temp Pulse Resp BP Pulse Ox 97.9 F 68 18 150/60 97 02/10/17 08:04 02/10/17 08:04 02/10/17 08:04 02/10/17 09:25 02/10/17 08:04 Intake and Output: 02/10/17 02/10/17 06:59 18:59 Output Total 1 Balance -1 - Medications Medications: Current Medications Albuterol/Ipratropium (Duoneb 3 Mg/0.5 Mg (3 Ml) Ud) 3 ml INH RQ6 [facility] Carvedilol (Coreg) 12.5 mg PO Q12 [facility] Last Admin: 02/10/17 09:24 Dose: 12.5 mg Enoxaparin Sodium (Lovenox) 40 mg SC DAILY [facility] Last Admin: 02/10/17 09:32 Dose: 40 mg Furosemide (Lasix) 40 mg IVP DAILY [facility] Last Admin: 02/10/17 09:25 Dose: 40 mg Hydrochlorothiazide (Microzide) 12.5 mg PO DAILY [facility] Last Admin: 02/10/17 09:25 Dose: 12.5 mg Insulin Human Regular (Novolin R) 0 unit SC ACHS [facility] PRN Reason: Protocol Last Admin: 02/10/17 12:03 Dose: 2 unit Losartan Potassium (Cozaar) 100 mg PO DAILY [facility] Last Admin: 02/10/17 09:25 Dose: 100 mg Pantoprazole Sodium (Protonix Inj) 40 mg IVP DAILY [facility] Last Admin: 02/10/17 09:24 Dose: 40 mg Pneumococcal Polyvalent Vaccine (Pneumovax 23 Vaccine) 0.5 ml IM .ONCE ONE Stop: 02/12/17 10:01 - Labs Labs: 02/10/17 07:38 02/10/17 07:38 PT 11.6 SECONDS (9.7-12.2) 02/09/17 09:24 INR 1.0 02/09/17 09:24 APTT 27 SECONDS (21-34) 02/09/17 09:24 - Constitutional Appears: Non-toxic, No Acute Distress - Head Exam Head Exam: ATRAUMATIC, NORMOCEPHALIC - Eye Exam Eye Exam: EOMI, Normal appearance Pupil Exam: NORMAL ACCOMODATION - ENT Exam ENT Exam: Mucous Membranes Moist - Neck Exam Neck Exam: Full ROM, Normal Inspection - Respiratory Exam Respiratory Exam: Rales (mild), NORMAL BREATHING PATTERN. absent: Rhonchi, Wheezes, Respiratory Distress, Stridor - Cardiovascular Exam Cardiovascular Exam: REGULAR RHYTHM, +S1, +S2 - GI/Abdominal Exam GI & Abdominal Exam: Soft, Normal Bowel Sounds - Extremities Exam Extremities Exam: Normal Inspection - Neurological Exam Neurological Exam: Alert, Awake, CN II-XII Intact, Normal Gait, Oriented x3 - Psychiatric Exam Psychiatric exam: Normal Affect, Normal Mood - Skin Skin Exam: Dry, Intact, Normal Color, Warm Assessment and Plan - Assessment and Plan (Free Text) Assessment: 1. Diastolic CHF exacerbation -CXR: Active CHF suspected though underlying infiltrate or atelectasis are not excluded the mid left lung zone and bilateral bases. -strict I/O -daily weight -lasix 40 mg IV daily -cardiology consult. Dr. Goodman. recs appreciated. Per top bottom attaching machine operator, there is no evidence of myocardial ischemia currently. -troponin negative. -BNP normal -EKG shows sinus rhythm with LBBB -continue coreg 12.5 mg po q 12 -continue losartan 100 mg po daily -ECHO 11/2016 shows normal LV function, pulmonary htn 2. COPD -duonebs 3ml INH q6h [facility] -Bipap as needed -AB.36/40/58/22.6 -Given solumedrol 125mg IV once in ED 3. hx of DM -ISS -accuchecks -diabetic diet 4. HTN -well controlled -continue losartan 100 mg po daily -continue hctz 12.5 mg po daily. 5. Pulmonary hypertension -treat underlying heart failure -outpatient pulmonary follow up 6. GI/DVT ppx -SCDs -protonix 40 daily -fall precautions -Lovenox 40mg SC daily discussed with Dr. Ohara
[2017-02-10] MEDS: Albuterol-Ipratrop 3 mg / 0.5 (3 ml) UD INH SCH (19:35)
[2017-02-11] MEDS: Albuterol-Ipratrop 3 mg / 0.5 (3 ml) UD INH SCH ×4 (01:02→19:27)
[2017-02-11] MEDS: (Novolin R) Insulin Human Regular 100 units/ml vial SC SCH ×4 (08:24→22:06)
[2017-02-11] MEDS: Enoxaparin 40 mg Syringe SC SCH (10:10)
--- NOTE | 2017-02-11 12:27 | CP.PCM.PN ---
Subjective - Date & Time of Evaluation Date of Evaluation: 02/11/17 Time of Evaluation: 12:00 - Subjective Subjective: patient had NSVT last night. was asymptomatic Objective - Vital Signs/Intake and Output Vital Signs (last 24 hours): Temp Pulse Resp BP Pulse Ox 97.9 F 78 18 165/68 H 99 02/11/17 07:42 02/11/17 11:51 02/11/17 07:42 02/11/17 10:10 02/11/17 07:42 Intake and Output: 02/11/17 02/11/17 06:59 18:59 Intake Total 300 Output Total 1 Balance 299 - Medications Medications: Current Medications Albuterol/Ipratropium (Duoneb 3 Mg/0.5 Mg (3 Ml) Ud) 3 ml INH RQ6 [facility] Last Admin: 02/11/17 07:33 Dose: 3 ml Amlodipine Besylate (Norvasc) 5 mg PO DAILY [facility] Last Admin: 02/11/17 10:10 Dose: 5 mg Carvedilol (Coreg) 12.5 mg PO Q12 [facility] Last Admin: 02/11/17 10:10 Dose: 12.5 mg Enoxaparin Sodium (Lovenox) 40 mg SC DAILY [facility] Last Admin: 02/11/17 10:10 Dose: 40 mg Furosemide (Lasix) 40 mg IVP DAILY [facility] Last Admin: 02/11/17 10:10 Dose: 40 mg Hydrochlorothiazide (Microzide) 12.5 mg PO DAILY [facility] Last Admin: 02/11/17 10:10 Dose: 12.5 mg Insulin Human Regular (Novolin R) [address] [facility] PRN Reason: Protocol Last Admin: 02/11/17 08:24 Dose: Not Given Losartan Potassium (Cozaar) 100 mg PO DAILY [facility] Last Admin: 02/11/17 10:10 Dose: 100 mg Pantoprazole Sodium (Protonix Inj) 40 mg IVP DAILY [facility] Last Admin: 02/11/17 10:10 Dose: 40 mg Pneumococcal Polyvalent Vaccine (Pneumovax 23 Vaccine) 0.5 ml IM .ONCE ONE Stop: 02/12/17 10:01 - Labs Labs: 02/10/17 07:38 02/10/17 07:38 PT 11.6 SECONDS (9.7-12.2) 02/09/17 09:24 INR 1.0 02/09/17 09:24 APTT 27 SECONDS (21-34) 02/09/17 09:24 - Constitutional Appears: Non-toxic - Head Exam Head Exam: NORMAL INSPECTION - Eye Exam Eye Exam: Normal appearance - ENT Exam ENT Exam: Mucous Membranes Moist - Neck Exam Neck Exam: Tenderness - Respiratory Exam Respiratory Exam: NORMAL BREATHING PATTERN - Cardiovascular Exam Cardiovascular Exam: REGULAR RHYTHM - GI/Abdominal Exam GI & Abdominal Exam: Normal Bowel Sounds - Rectal Exam Rectal Exam: Deferred - Extremities Exam Extremities Exam: Pedal Edema - Back Exam Back Exam: NORMAL INSPECTION - Neurological Exam Neurological Exam: Alert - Psychiatric Exam Psychiatric exam: Normal Affect - Skin Skin Exam: Normal Color Assessment and Plan (1) Diastolic dysfunction with acute on chronic heart failure Assessment & Plan: echocardigoram reviewed. improved symptoms today Status: Acute (2) Dyspnea Assessment & Plan: as above. given VT will need to assess for myocardial ischemia Status: Acute (3) HTN (hypertension) Assessment & Plan: medical therapy Status: Chronic (4) Ventricular tachycardia Assessment & Plan: patient will need assessment for myocardial ischemia. will schedule stress test. Status: Acute
[2017-02-12] MEDS: Albuterol-Ipratrop 3 mg / 0.5 (3 ml) UD INH SCH ×4 (01:23→19:28)
[2017-02-12] MEDS: (Novolin R) Insulin Human Regular 100 units/ml vial SC SCH ×4 (08:29→22:11)
[2017-02-12] MEDS ORDERED: Influenza Vaccine 60 mcg/0.5 mL SYR (4YR UP) IM ONE (10:00)
[2017-02-12] MEDS ORDERED: Pneumococcal 23-Valent Vaccine IM ONE (10:00)
[2017-02-12] MEDS: Enoxaparin 40 mg Syringe SC SCH (10:14)
--- NOTE | 2017-02-12 10:20 | CP.PCM.PN ---
Subjective - Date & Time of Evaluation Date of Evaluation: 02/12/17 Time of Evaluation: 10:00 - Subjective Subjective: patient has no current chest pain or dyspnea. Objective - Vital Signs/Intake and Output Vital Signs (last 24 hours): Temp Pulse Resp BP Pulse Ox 98.2 F 68 18 142/73 98 02/12/17 07:45 02/12/17 07:45 02/12/17 07:45 02/12/17 07:45 02/12/17 07:45 Intake and Output: 02/12/17 02/12/17 06:59 18:59 Intake Total 320 Output Total 550 Balance -230 - Medications Medications: Current Medications Albuterol/Ipratropium (Duoneb 3 Mg/0.5 Mg (3 Ml) Ud) 3 ml INH RQ6 [facility] Last Admin: 02/12/17 08:17 Dose: 3 ml Amlodipine Besylate (Norvasc) 5 mg PO DAILY [facility] Last Admin: 02/11/17 10:10 Dose: 5 mg Carvedilol (Coreg) 12.5 mg PO Q12 [facility] Last Admin: 02/11/17 22:06 Dose: 12.5 mg Enoxaparin Sodium (Lovenox) 40 mg SC DAILY [facility] Last Admin: 02/11/17 10:10 Dose: 40 mg Furosemide (Lasix) 40 mg IVP DAILY [facility] Last Admin: 02/11/17 10:10 Dose: 40 mg Hydrochlorothiazide (Microzide) 12.5 mg PO DAILY [facility] Last Admin: 02/11/17 10:10 Dose: 12.5 mg Insulin Human Regular (Novolin R) 0 unit SC ACHS [facility] PRN Reason: Protocol Last Admin: 02/12/17 08:29 Dose: 1 unit Losartan Potassium (Cozaar) 100 mg PO DAILY [facility] Last Admin: 02/11/17 10:10 Dose: 100 mg Pantoprazole Sodium (Protonix Inj) 40 mg IVP DAILY [facility] Last Admin: 02/11/17 10:10 Dose: 40 mg - Labs Labs: 02/10/17 07:38 02/10/17 07:38 PT 11.6 SECONDS (9.7-12.2) 02/09/17 09:24 INR 1.0 02/09/17 09:24 APTT 27 SECONDS (21-34) 02/09/17 09:24 - Constitutional Appears: Non-toxic - Head Exam Head Exam: NORMAL INSPECTION - Eye Exam Eye Exam: Normal appearance - ENT Exam ENT Exam: Mucous Membranes Moist - Neck Exam Neck Exam: Full ROM - Respiratory Exam Respiratory Exam: Decreased Breath Sounds - Cardiovascular Exam Cardiovascular Exam: REGULAR RHYTHM - GI/Abdominal Exam GI & Abdominal Exam: Normal Bowel Sounds - Rectal Exam Rectal Exam: Deferred - Extremities Exam Extremities Exam: Normal Inspection - Back Exam Back Exam: NORMAL INSPECTION - Neurological Exam Neurological Exam: Alert - Psychiatric Exam Psychiatric exam: Normal Affect - Skin Skin Exam: Normal Color Assessment and Plan (1) Diastolic dysfunction with acute on chronic heart failure Assessment & Plan: improved clinically Status: Acute (2) Dyspnea Assessment & Plan: will need evalaution of coronary anatomy. stress test tomorrow Status: Acute (3) HTN (hypertension) Assessment & Plan: blood pressure control Status: Chronic (4) Ventricular tachycardia Assessment & Plan: for stress test Status: Acute
[2017-02-12 15:32] VITALS: RESP 20
[2017-02-13] MEDS: Albuterol-Ipratrop 3 mg / 0.5 (3 ml) UD INH SCH ×4 (02:14→19:37)
[2017-02-13] MEDS ORDERED: Aminophylline 25 mg/ml Inj ONE (07:19)
[2017-02-13] MEDS: (Novolin R) Insulin Human Regular 100 units/ml vial SC SCH ×4 (07:31→22:22)
--- NOTE | 2017-02-13 07:45 | CP.PCM.PN ---
Subjective - Date & Time of Evaluation Date of Evaluation: 02/13/17 Time of Evaluation: 07:35 - Subjective Subjective: nuclear stress test performed. await nuclear images. Objective - Vital Signs/Intake and Output Vital Signs (last 24 hours): Temp Pulse Resp BP Pulse Ox 97.8 F 80 20 137/68 97 02/13/17 07:17 02/13/17 07:17 02/13/17 07:17 02/13/17 07:17 02/13/17 07:17 Intake and Output: 02/13/17 02/13/17 06:59 18:59 Intake Total 480 Balance 480 - Medications Medications: Current Medications Albuterol/Ipratropium (Duoneb 3 Mg/0.5 Mg (3 Ml) Ud) 3 ml INH RQ6 [facility] Last Admin: 02/13/17 02:14 Dose: 3 ml Amlodipine Besylate (Norvasc) 5 mg PO DAILY [facility] Last Admin: 02/12/17 10:14 Dose: 5 mg Carvedilol (Coreg) 12.5 mg PO Q12 [facility] Last Admin: 02/12/17 21:39 Dose: 12.5 mg Enoxaparin Sodium (Lovenox) 40 mg SC DAILY [facility] Last Admin: 02/12/17 10:14 Dose: 40 mg Furosemide (Lasix) 40 mg IVP DAILY [facility] Last Admin: 02/12/17 10:14 Dose: 40 mg Hydrochlorothiazide (Microzide) 12.5 mg PO DAILY [facility] Last Admin: 02/12/17 10:15 Dose: 12.5 mg Insulin Human Regular (Novolin R) 0 unit SC [facility] PRN Reason: Protocol Last Admin: 02/13/17 07:31 Dose: Not Given Losartan Potassium (Cozaar) 100 mg PO DAILY [facility] Last Admin: 02/12/17 10:15 Dose: 100 mg Pantoprazole Sodium (Protonix Inj) 40 mg IVP DAILY [facility] Last Admin: 02/12/17 10:15 Dose: 40 mg - Labs Labs: 02/10/17 07:38 02/10/17 07:38 PT 11.6 SECONDS (9.7-12.2) 02/09/17 09:24 INR 1.0 02/09/17 09:24 APTT 27 SECONDS (21-34) 02/09/17 09:24 Assessment and Plan (1) Diastolic dysfunction with acute on chronic heart failure Status: Acute (2) Dyspnea Status: Acute (3) HTN (hypertension) Status: Chronic (4) Ventricular tachycardia Status: Acute
[2017-02-13] MEDS: Enoxaparin 40 mg Syringe SC SCH (10:05)
[2017-02-13 14:03] LABS: BASO # 0.1 K/uL (0.0-0.2); BASO % 1.1 % (0.0-2.0); EOS # 0.2 K/uL (0.0-0.7); EOS % 2.5 % (0.0-4.0); HEMATOCRIT 45.3 % (34.0-47.0); LYMPH # 3.3 K/uL (1.0-4.3); LYMPH % 40.2 % (20.0-40.0); MEAN CELL VOLUME 82.2 fL (81.0-99.0); MEAN CORPUSCULAR HEMOGLOBIN 26.9 pg (27.0-31.0); MEAN CORPUSCULAR HGB CONC 32.8 g/dL (33.0-37.0); MEAN PLATELET VOLUME 8.3 fL (7.2-11.7); MONO # 0.5 K/uL (0.0-0.8); MONO % 6.4 % (0.0-10.0); NRBC % 0.1 % (0.0-2.0); RED CELL DISTRIBUTION WIDTH 15.2 % (11.5-14.5); WHITE BLOOD COUNT 8.3 K/uL (4.8-10.8)
[2017-02-13 14:46] LABS: CHLORIDE 92 mmol/L (98-107)
[2017-02-13 14:47] LABS: POTASSIUM 3.4 mmol/L (3.6-5.2); SODIUM 133 mmol/L (132-148)
[2017-02-13 14:49] LABS: ALB/GLOB RATIO 1.1 (1.0-2.1); ALKALINE PHOSPHATASE 71 U/L (38-126); AST/SGOT 30 U/L (14-36); BILIRUBIN,TOTAL 1.1 mg/dL (0.2-1.3); BLOOD UREA NITROGEN 26 mg/dL (7-17); CARBON DIOXIDE 33 mmol/L (22-30); GFR AFRICAN-AMERICAN > 60; GLUCOSE,RANDOM 175 mg/dL (65-105); TOTAL PROTEIN 8.5 g/dL (6.3-8.3)
[2017-02-13 14:50] LABS: ALT/SGPT 54 U/L (9-52); CALCIUM 9.3 mg/dl (8.6-10.4); MAGNESIUM 1.8 mg/dL (1.6-2.3)
--- NOTE | 2017-02-13 16:34 | CP.PCM.PN ---
Subjective - Date & Time of Evaluation Date of Evaluation: 02/13/17 Time of Evaluation: 16:30 - Subjective Subjective: Progress note. Attending: Dr. Ohara Pt seen and examined at bedside. No acute distress. No events overnight. No fevers, chills, vomiting, diarrhea, cp, sob. Breathing much better. Nuclear stress test pending. Objective - Vital Signs/Intake and Output Vital Signs (last 24 hours): Temp Pulse Resp BP Pulse Ox 97.7 F 73 20 122/63 96 02/13/17 15:10 02/13/17 15:10 02/13/17 15:10 02/13/17 15:10 02/13/17 15:10 Intake and Output: 02/13/17 02/13/17 06:59 18:59 Intake Total 480 500 Balance 480 500 - Medications Medications: Current Medications Albuterol/Ipratropium (Duoneb 3 Mg/0.5 Mg (3 Ml) Ud) 3 ml INH RQ6 [facility] Last Admin: 02/13/17 13:24 Dose: 3 ml Amlodipine Besylate (Norvasc) 5 mg PO DAILY [facility] Last Admin: 02/13/17 10:05 Dose: 5 mg Carvedilol (Coreg) 12.5 mg PO Q12 [facility] Last Admin: 02/13/17 10:05 Dose: 12.5 mg Enoxaparin Sodium (Lovenox) 40 mg SC DAILY [facility] Last Admin: 02/13/17 10:05 Dose: 40 mg Furosemide (Lasix) 40 mg IVP DAILY [facility] Last Admin: 02/13/17 10:05 Dose: 40 mg Hydrochlorothiazide (Microzide) 12.5 mg PO DAILY [facility] Last Admin: 02/13/17 10:05 Dose: 12.5 mg Insulin Human Regular (Novolin R) 0 unit SC [facility] PRN Reason: Protocol Last Admin: 02/13/17 11:30 Dose: Not Given Losartan Potassium (Cozaar) 100 mg PO DAILY [facility] Last Admin: 02/13/17 10:05 Dose: 100 mg Pantoprazole Sodium (Protonix Ec Tab) 40 mg PO DAILY [facility] - Labs Labs: 02/13/17 13:51 02/13/17 13:51 PT 11.6 SECONDS (9.7-12.2) 02/09/17 09:24 INR 1.0 02/09/17 09:24 APTT 27 SECONDS (21-34) 02/09/17 09:24 - Constitutional Appears: Non-toxic, No Acute Distress - Head Exam Head Exam: ATRAUMATIC, NORMAL INSPECTION, NORMOCEPHALIC - Eye Exam Eye Exam: EOMI - ENT Exam ENT Exam: Mucous Membranes Moist - Neck Exam Neck Exam: Full ROM, Normal Inspection - Respiratory Exam Respiratory Exam: Decreased Breath Sounds. absent: Respiratory Distress - Cardiovascular Exam Cardiovascular Exam: +S1, +S2 - GI/Abdominal Exam GI & Abdominal Exam: Soft, Normal Bowel Sounds. absent: Tenderness - Extremities Exam Extremities Exam: Full ROM, Normal Inspection - Back Exam Back Exam: NORMAL INSPECTION - Neurological Exam Neurological Exam: Alert, Awake, Oriented x3 - Psychiatric Exam Psychiatric exam: Normal Affect, Normal Mood - Skin Skin Exam: Dry, Intact, Normal Color, Warm Assessment and Plan - Assessment and Plan (Free Text) Assessment: This is a 76 yo female with 1. Diastolic CHF exacerbation -CXR: Active CHF suspected though underlying infiltrate or atelectasis are not excluded the mid left lung zone and bilateral bases. -strict I/O -daily weight -lasix 40 mg IV daily -cardiology consult. Dr. Goodman. recs appreciated. Per tissue technologist, there is no evidence of myocardial ischemia currently. -troponin negative. -BNP normal -EKG shows sinus rhythm with LBBB -continue coreg 12.5 mg po q 12 -continue losartan 100 mg po daily -ECHO 11/2016 shows normal LV function, pulmonary htn -results from nuclear stress test pending 2. COPD -duonebs 3ml INH q6h [facility] -Bipap as needed -AB.36/40/58/22.6 -Given solumedrol 125mg IV once in ED 3. hx of DM -ISS -accuchecks -diabetic diet 4. HTN -well controlled -continue losartan 100 mg po daily -continue hctz 12.5 mg po daily. -continue norvasc 5 mg po daily 5. Pulmonary hypertension -treat underlying heart failure -outpatient pulmonary follow up 6. GI/DVT ppx -SCDs -protonix 40 daily -fall precautions -Lovenox 40mg SC daily discussed with Dr. Ohara
--- NOTE | 2017-02-13 17:55 | CP.PCM.PN ---
Subjective - Date & Time of Evaluation Date of Evaluation: 02/13/17 Time of Evaluation: 17:50 - Subjective Subjective: nuclear stress test reviewed. Decreased perfusion at the apex seen on the stress images. There is no improvement on the resting images. This si suggestive of infarction without ischemia of the apex. EF 45-50%. Recommend medical therapy. no indication for cardiac cath. Objective - Vital Signs/Intake and Output Vital Signs (last 24 hours): Temp Pulse Resp BP Pulse Ox 97.7 F 73 20 122/63 96 02/13/17 15:10 02/13/17 15:10 02/13/17 15:10 02/13/17 15:10 02/13/17 15:10 Intake and Output: 02/13/17 02/13/17 06:59 18:59 Intake Total 480 500 Balance 480 500 - Medications Medications: Current Medications Albuterol/Ipratropium (Duoneb 3 Mg/0.5 Mg (3 Ml) Ud) 3 ml INH RQ6 [facility] Last Admin: 02/13/17 13:24 Dose: 3 ml Amlodipine Besylate (Norvasc) 5 mg PO DAILY [facility] Last Admin: 02/13/17 10:05 Dose: 5 mg Carvedilol (Coreg) 12.5 mg PO Q12 [facility] Last Admin: 02/13/17 10:05 Dose: 12.5 mg Enoxaparin Sodium (Lovenox) 40 mg SC DAILY [facility] Last Admin: 02/13/17 10:05 Dose: 40 mg Furosemide (Lasix) 40 mg IVP DAILY [facility] Last Admin: 02/13/17 10:05 Dose: 40 mg Hydrochlorothiazide (Microzide) 12.5 mg PO DAILY [facility] Last Admin: 02/13/17 10:05 Dose: 12.5 mg Insulin Human Regular (Novolin R) 0 unit SC ACHS [facility] PRN Reason: Protocol Last Admin: 02/13/17 17:30 Dose: 2 unit Losartan Potassium (Cozaar) 100 mg PO DAILY [facility] Last Admin: 02/13/17 10:05 Dose: 100 mg Pantoprazole Sodium (Protonix Ec Tab) 40 mg PO DAILY [facility] - Labs Labs: 02/13/17 13:51 02/13/17 13:51 PT 11.6 SECONDS (9.7-12.2) 02/09/17 09:24 INR 1.0 02/09/17 09:24 APTT 27 SECONDS (21-34) 02/09/17 09:24 Assessment and Plan (1) Diastolic dysfunction with acute on chronic heart failure Status: Acute (2) Dyspnea Status: Acute (3) HTN (hypertension) Status: Chronic (4) Ventricular tachycardia Status: Acute
[2017-02-14] MEDS: Albuterol-Ipratrop 3 mg / 0.5 (3 ml) UD INH SCH ×2 (01:02→07:42)
[2017-02-14 06:30] LABS: BASO # 0.1 K/uL (0.0-0.2); BASO % 1.1 % (0.0-2.0); EOS # 0.4 K/uL (0.0-0.7); EOS % 5.5 % (0.0-4.0); HEMATOCRIT 42.1 % (34.0-47.0); LYMPH # 2.7 K/uL (1.0-4.3); LYMPH % 39.1 % (20.0-40.0); MEAN CELL VOLUME 82.5 fL (81.0-99.0); MEAN CORPUSCULAR HEMOGLOBIN 27.5 pg (27.0-31.0); MEAN CORPUSCULAR HGB CONC 33.3 g/dL (33.0-37.0); MEAN PLATELET VOLUME 8.2 fL (7.2-11.7); MONO # 0.6 K/uL (0.0-0.8); MONO % 8.2 % (0.0-10.0); NRBC % 0.1 % (0.0-2.0)
[2017-02-14 07:04] LABS: CHLORIDE 93 mmol/L (98-107); POTASSIUM 3.2 mmol/L (3.6-5.2); SODIUM 132 mmol/L (132-148)
[2017-02-14 07:06] LABS: CARBON DIOXIDE 29 mmol/L (22-30); GFR AFRICAN-AMERICAN > 60
[2017-02-14 07:07] LABS: ALB/GLOB RATIO 1.6 (1.0-2.1); ALKALINE PHOSPHATASE 77 U/L (38-126); ALT/SGPT 49 U/L (9-52); AST/SGOT 29 U/L (14-36); BLOOD UREA NITROGEN 25 mg/dL (7-17); GLUCOSE,RANDOM 190 mg/dL (65-105); MAGNESIUM 1.7 mg/dL (1.6-2.3); PHOSPHOROUS 3.8 mg/dL (2.5-4.5); TOTAL PROTEIN 6.5 g/dL (6.3-8.3)
[2017-02-14] MEDS: (Novolin R) Insulin Human Regular 100 units/ml vial SC SCH ×2 (07:30→12:22)
[2017-02-14 07:39] VITALS: TEMP 98.3; O2SAT 98
[2017-02-14] MEDS ORDERED: Potassium Chloride 20 mEq ER Tab PO ONE (09:28)
[2017-02-14] MEDS: Enoxaparin 40 mg Syringe SC SCH (09:28)
[2017-02-14 09:29] VITALS: BP 130/70
--- NOTE | 2017-02-14 09:33 | CP.PCM.PN ---
Subjective - Date & Time of Evaluation Date of Evaluation: 02/14/17 Time of Evaluation: 09:31 - Subjective Subjective: Medicine Progress Note- Dr Ohara's service Patient seen and examined. Patient states that she feels much better and that her breathing has significantly improved. The patient is requesting a home health aide. Denies chest pain, cough, shortness of breath, nausea, vomiting and palpitations. Objective - Vital Signs/Intake and Output Vital Signs (last 24 hours): Temp Pulse Resp BP Pulse Ox 98.3 F 73 20 130/65 98 02/14/17 07:38 02/14/17 07:38 02/14/17 07:38 02/14/17 07:38 02/14/17 07:38 Intake and Output: 02/14/17 02/14/17 06:59 18:59 Intake Total 620 Balance 620 - Medications Medications: Current Medications Albuterol/Ipratropium (Duoneb 3 Mg/0.5 Mg (3 Ml) Ud) 3 ml INH RQ6 [facility] Last Admin: 02/14/17 07:42 Dose: 3 ml Amlodipine Besylate (Norvasc) 5 mg PO DAILY [facility] Last Admin: 02/13/17 10:05 Dose: 5 mg Carvedilol (Coreg) 12.5 mg PO Q12 [facility] Last Admin: 02/13/17 21:26 Dose: 12.5 mg Enoxaparin Sodium (Lovenox) 40 mg SC DAILY [facility] Last Admin: 02/13/17 10:05 Dose: 40 mg Furosemide (Lasix) 40 mg IVP DAILY [facility] Last Admin: 02/13/17 10:05 Dose: 40 mg Hydrochlorothiazide (Microzide) 12.5 mg PO DAILY [facility] Last Admin: 02/13/17 10:05 Dose: 12.5 mg Insulin Human Regular (Novolin R) [address] [facility] PRN Reason: Protocol Last Admin: 02/13/17 22:22 Dose: Not Given Losartan Potassium (Cozaar) 100 mg PO DAILY [facility] Last Admin: 02/13/17 10:05 Dose: 100 mg Pantoprazole Sodium (Protonix Ec Tab) 40 mg PO DAILY [facility] - Labs Labs: 02/14/17 06:17 02/14/17 06:17 PT 11.6 SECONDS (9.7-12.2) 02/09/17 09:24 INR 1.0 02/09/17 09:24 APTT 27 SECONDS (21-34) 02/09/17 09:24 - Additional Findings Additional findings: - Constitutional Appears: Non-toxic, No Acute Distress - Head Exam Head Exam: ATRAUMATIC, NORMAL INSPECTION, NORMOCEPHALIC - Eye Exam Eye Exam: EOMI - ENT Exam ENT Exam: Mucous Membranes Moist - Neck Exam Neck Exam: Full ROM, Normal Inspection - Respiratory Exam Respiratory Exam: Decreased Breath Sounds. absent: Respiratory Distress - Cardiovascular Exam Cardiovascular Exam: +S1, +S2 - GI/Abdominal Exam GI & Abdominal Exam: Soft, Normal Bowel Sounds. absent: Tenderness - Extremities Exam Extremities Exam: Full ROM, Normal Inspection - Back Exam Back Exam: NORMAL INSPECTION - Neurological Exam Neurological Exam: Alert, Awake, Oriented x3 - Psychiatric Exam Psychiatric exam: Normal Affect, Normal Mood - Skin Skin Exam: Dry, Intact, Normal Color, Warm Assessment and Plan - Assessment and Plan (Free Text) Assessment: 1. Diastolic CHF exacerbation -cardiology consult. Dr. Goodman. recs appreciated. Per creative intern, there is no evidence of myocardial ischemia currently. Stress test showed ischemia, no cardiac cath required. Medical management at this time. -CXR: Active CHF suspected though underlying infiltrate or atelectasis are not excluded the mid left lung zone and bilateral bases. -strict I/O -daily weight -lasix 40 mg IV daily -troponin negative. -BNP normal -EKG shows sinus rhythm with LBBB -continue coreg 12.5 mg po q 12 -continue losartan 100 mg po daily -ECHO 11/2016 shows normal LV function, pulmonary htn -results from nuclear stress test pending 2. COPD -duonebs 3ml INH q6h [facility] -Bipap as needed -AB.36/40/58/22.6 -Given solumedrol 125mg IV once in ED 3. hx of DM -ISS -accuchecks -diabetic diet 4. HTN -well controlled -continue losartan 100 mg po daily -continue hctz 12.5 mg po daily. -continue norvasc 5 mg po daily 5. Pulmonary hypertension -treat underlying heart failure -outpatient pulmonary follow up 6. GI/DVT ppx -SCDs -protonix 40 daily -fall precautions -Lovenox 40mg SC daily discussed with Dr. Ohara
[2017-02-14] MEDS ORDERED: Pantoprazole 40 mg EC Tab PO SCH (10:00)
[2017-02-14 11:10] VITALS: PULSE 81
--- NOTE | 2017-02-14 11:15 | CARD ---
APPROVED REPORT EKG Measurement Heart [id number] <Conclusion> Normal sinus rhythm Left axis deviation Left bundle branch block Abnormal ECG
--- NOTE | 2017-02-14 16:14 | PCM.HF ---
Heart Failure Core Measure - Heart Failure Ejection Fraction: 40 % or Greater GEMA Inhibitor Prescribed: No Contraindication/Reason for not providing: arb Beta-Leydi Prescribed: Carvedilol Angiotensin II Receptor Leydi Prescribed: Yes AnticoagulationTherapy for Atrial Fibrillation/Atrialflutter: No Contraindication/Reason for not providing: no hx of afib Aldosterone Antagonist Prescribed: No Contraindication/Reason for not providing: EF IS GREATER THAN 40 Hydralazine Nitrate Prescribed: No Contraindication/Reason for not providing: EF IS GREATER THAN 40 Implantable Cardioverter Defibrillator Therapy: No Contraindication/Reason for not providing: EF IS GREATER THAN 40 Cardiac Resynchronization Therapy Prescribed: No Contraindication/Reason for not providing: EF IS GREATER THAN 40 - Follow up Will be discharged to: Home Follow Up Date (must be within 7 days from discharge): 02/20/17 Follow Up Time: 09:00
--- NOTE | 2017-02-14 18:40 | CARD ---
APPROVED REPORT Protocol: PHARMACOLOGICAL STRESS Test Type: LEXISCAN Test Indications: CHF Medical History: CHF Target HR: 142 bpm Resting ECG: left bundle branch block Resting Heart Rate: 82 bpm Resting Blood Pressure: 132/70mmHg submaximum (85%): 121 bpm TEST SUMMARY PREINFSNHYPERV.05:[id number]/70.1. INFUSIONDOSE 100:300.00.01.197903/70.0. [id number]:[id number]/70.0. PROCEDURE Pharmacologic stress testing was performed using 0.4mg per 5ml of regadenoson given intravenously over 7-10 seconds. Reversal agent aminophyline 125 mg, given intravenously for Dyspnea. POST EXERCISE Reason for Termination: Protocol Completed Target HR: No Max HR: 84 bpm 67% of Maximum Predicted HR: 142 bpm Exercise duration: 00:30 min:sec, 0 Stage Exercise capacity: 1.0METs Max Blood Pressure: 144/70mmHg Blood Pressure response to exercise: normal resting BP - appropriate response Heart Rate response to exercise: appropriate Chest Pain: No, none Angina index: 0 Arrhythmia: No, none ST Change: No, none Deviation: 0 mm INTERPRETATION Stress EKG Conclusion: AWAIT NUCLEAR IMAGES EXAM: Myocardial Perfusion STRESS/REST Imaging Protocol The imaging protocol used to acquire images was Stress Tc-99m/rest Tc-99m 1 day Stress Spect myocardial perfusion imaging was performed in supine position 40 minutes following the injection of 13.2 mCi of Tc-99 Myoview. Gated Rest Spect was performed 41 minutes after intravenous 32.5 mCi Tc-99 Myoview injection. The images were gated to evaluate regional wall motion and calculate ventricular ejection fraction.Images were reconstructed using backfilter projection method in short horizontal and verticle long axis. Spect slices were generated. RESTING DATA YEZ045.41meYU4.70L/min ESV76.00mlMyocardial Wakk443.00g Av. Heart Rate73.00bpm EF40.00% STRESS DATA KMN425.15piFG2.60L/min ESV65.00mlMyocardial Swqg566.00g EF53.00% Regional WT score at stress:1.00 Regional WM score at stress:0.00 Summed WT score at stress:36.00 Av. Heart Rate77.00bpmSummed WM score at stress:16.00 LV Perf. Quant 17 Seg. SSS11.00 17 Seg. SRS15.00 17 Seg. SDS0.00 Stress Defect Extent (% LAD)33.10Rest Defect Extent (% LAD)37.50Rev. Defect Extent (% LAD)0.00 Stress Defect Extent (% LCX)37.50Rest Defect Extent (% LCX)48.80Rev. Defect Extent (% LCX)0.00 Stress Defect Extent (% RCA)2.20Rest Defect Extent (% RCA)10.00Rev. Defect Extent (% RCA)0.00 Stress Defect Extent (% TREVON)28.00Rest Defect Extent (% TREVON)36.50Rev. Defect Extent (% TREVON)0.00 Other Information Quality:Excellent IMPRESSION Abnormal Myocardial Perfusion exercise stress study Global LV Function: Mildy reduced Stress Test Summary: Nondiagnostic LV Perfusion Summary: Abnormal Left Ventricle LV Size/Shape: The Left Ventricle is mildly dilated. LV Thickness: There is normal left ventricular wall thickness. LV Function:Left ventricle systolic function is mildly decreased The Ejection Fraction is 40-45%. Regional Wall Motion:There is mild hypokinesis in the mid-anteroseptal wall. Metabolism/Perfusion Reversible/Irreversible: There is a small irreversible perfusion/metabolism defect in the Apical anterior wall. There is a small irreversible perfusion/metabolism defect in the Apical inferior wall. Conclusion 1. Small irreversible perfusion defect of the apical segment of the left ventricle. 2. Mild left ventricular dysfunction.
== END 2017-02-14 13:02 | disposition home or self-care (01) | DRG 292 ==
LOC: C.ER 08:58 → C.9E 10:55 → C.6T 11:07
PROVIDERS: ADMIT Internal Medicine Pulmonary Disease; ATTEND Internal Medicine Pulmonary Disease
PROC: 5A09557 Assistance with Respiratory Ventilation, Greater than 96 Consecutive Hours, Continuous Positive Airway Pressure (ICD-10-PCS; principal; 2017-02-09)
DX: I11.0 Hypertensive heart disease with heart failure (principal); I47.2 Ventricular tachycardia; J44.9 Chronic obstructive pulmonary disease, unspecified; E11.9 Type 2 diabetes mellitus without complications; I27.20 Pulmonary hypertension, unspecified; I50.33 Acute on chronic diastolic (congestive) heart failure; Z86.73 Personal history of transient ischemic attack (TIA), and cerebral infarction without residual deficits; J45.909 Unspecified asthma, uncomplicated

== ENCOUNTER 2017-03-15 07:11 | Observation (INO) | payer MEDICARE, OTHER ==
[2017-03-15 07:11] VITALS: BMI 22.3
[2017-03-15] MEDS ORDERED: Nitroglycerin 2% Ointment Foilpak UD TOP STA (07:39)
[2017-03-15] MEDS ORDERED: Albuterol-Ipratrop 3 mg / 0.5 (3 ml) UD INH STA ×2 (07:41→07:42)
[2017-03-15 08:01] LABS: BASO # 0.1 K/uL (0.0-0.2); BASO % 1.2 % (0.0-2.0); EOS # 0.2 K/uL (0.0-0.7); HEMATOCRIT 41.9 % (34.0-47.0); LYMPH # 2.4 K/uL (1.0-4.3); LYMPH % 27.6 % (20.0-40.0); MEAN CELL VOLUME 82.8 fL (81.0-99.0); MEAN CORPUSCULAR HEMOGLOBIN 27.2 pg (27.0-31.0); MEAN CORPUSCULAR HGB CONC 32.9 g/dL (33.0-37.0); MEAN PLATELET VOLUME 8.5 fL (7.2-11.7); MONO # 0.5 K/uL (0.0-0.8); MONO % 6.1 % (0.0-10.0); RED CELL DISTRIBUTION WIDTH 14.7 % (11.5-14.5); WHITE BLOOD COUNT 8.8 K/uL (4.8-10.8)
[2017-03-15 08:07] LABS: INR 1.1
[2017-03-15 08:09] LABS: ALB/GLOB RATIO 1.6 (1.0-2.1); ALKALINE PHOSPHATASE 80 U/L (38-126); ALT/SGPT 74 U/L (9-52); AST/SGOT 36 U/L (14-36); BILIRUBIN,TOTAL 1.1 mg/dL (0.2-1.3); BLOOD UREA NITROGEN 14 mg/dL (7-17); CALCIUM 8.9 mg/dl (8.6-10.4); CARBON DIOXIDE 24 mmol/L (22-30); CHLORIDE 102 mmol/L (98-107); GFR AFRICAN-AMERICAN > 60; GLUCOSE,RANDOM 155 mg/dL (65-105); POTASSIUM 3.9 mmol/L (3.6-5.2); SODIUM 137 mmol/L (132-148); TOTAL PROTEIN 6.9 g/dL (6.3-8.3)
--- NOTE | 2017-03-15 09:04 | C.PDOC ---
Chief Complaint (Nursing): Respiratory Distress Past Medical History Vital Signs: Last Vital Signs Temp 97.3 F L 03/15/17 07:28 Pulse 75 03/15/17 07:55 Resp 22 03/15/17 07:55 BP 149/64 03/15/17 07:55 Pulse Ox 97 03/15/17 07:55 - Medical History PMH: Arthritis, CHF, Diabetes, HTN, TIA - [facility] Procedures ASSISTANCE WITH RESPIRATORY VENTILATION, >96 HRS, CPAP (02/09/17) Family History: States: Unknown Family Hx - Social History Hx Tobacco Use: No Hx Alcohol Use: No Hx Substance Use: No - Immunization History Hx Tetanus Toxoid Vaccination: No Hx Influenza Vaccination: No Hx Pneumococcal Vaccination: No ED Course And Treatment - Laboratory Results Result Diagrams: 03/15/17 07:54 03/15/17 07:54 O2 Sat by Pulse Oximetry: 97 Disposition Discussed With : Shannen Ohara - Disposition Disposition Time: 09:00 Condition: IMPROVED - Clinical Impression Clinical Impression: Congestive cardiac failure
--- NOTE | 2017-03-15 12:29 | RAD ---
HISTORY: SOB COMPARISON: Chest x-ray performed 02/09/17 TECHNIQUE: Chest, one view. FINDINGS: Examination limited by habitus. LUNGS: Bilateral lower lobe infiltrates persist, slightly decreased in extent. Please note that chest x-ray has limited sensitivity for the detection of pulmonary masses. PLEURA: No significant pleural effusion identified. No definite pneumothorax . CARDIOVASCULAR: Borderline cardiomegaly. OSSEOUS STRUCTURES: Right shoulder calcific tendinitis. VISUALIZED UPPER ABDOMEN: Unremarkable. OTHER FINDINGS: None. IMPRESSION: Bilateral lower lobe infiltrates persist, slightly decreased in extent. Borderline cardiomegaly.
--- NOTE | 2017-03-15 13:37 | CP.PCM.PN ---
Subjective - Date & Time of Evaluation Date of Evaluation: 03/15/17 Time of Evaluation: 11:00 - Subjective Subjective: Medicine Progress Note Patient seen and examined. Patient states that she came to the ED today because she was experiencing shortness of breath since yesterday. The patient states her symptoms are worse when she lays down. She came to the ED this morning after her symptoms kept getting worse. Patient is complaining of a dry , non-productive cough as well. She denies fever, chills, nausea, vomiting, chest pain, palpitations, weakness, dizziness, headache, and change in urination. The patient was recently admitted to in early February for similar symptoms. Objective - Vital Signs/Intake and Output Vital Signs (last 24 hours): Temp Pulse Resp BP Pulse Ox 97.3 F L 94 H 20 155/74 H 98 03/15/17 07:28 03/15/17 11:38 03/15/17 11:38 03/15/17 11:38 03/15/17 11:38 - Medications Medications: Current Medications Albuterol/Ipratropium (Duoneb 3 Mg/0.5 Mg (3 Ml) Ud) 3 ml INH RQ6 [facility] Carvedilol (Coreg) 12.5 mg PO Q12 [facility] Famotidine (Pepcid) 20 mg PO BID [facility] Glipizide (Glucotrol Xl) 10 mg PO DAILY [facility] Heparin Sodium (Porcine) (Heparin) 5,000 units SC Q8 [facility] Last Admin: 03/15/17 13:19 Dose: 5,000 units Home Med (Atorvastatin Calcium [Atorvastatin Calcium]) 10 mg PO DAILY [facility] Hydrochlorothiazide (Hydrodiuril) 25 mg PO DAILY [facility] Insulin Human Regular (Novolin R) 0 unit SC ACHS [facility] PRN Reason: Protocol Losartan Potassium (Cozaar) 100 mg PO DAILY [facility] Metformin HCl (Glucophage) 500 mg PO BID [facility] - Labs Labs: 03/15/17 07:54 03/15/17 07:54 PT 12.0 SECONDS (9.7-12.2) 03/15/17 07:54 INR 1.1 03/15/17 07:54 - Constitutional Appears: Non-toxic, No Acute Distress - Head Exam Head Exam: ATRAUMATIC, NORMOCEPHALIC - Eye Exam Eye Exam: EOMI, Normal appearance Pupil Exam: NORMAL ACCOMODATION - ENT Exam ENT Exam: Mucous Membranes Moist, Normal Exam - Neck Exam Neck Exam: Full ROM, Normal Inspection - Respiratory Exam Respiratory Exam: Decreased Breath Sounds, Clear to Ausculation Bilateral, NORMAL BREATHING PATTERN. absent: Rhonchi, Wheezes, Respiratory Distress, Stridor - Cardiovascular Exam Cardiovascular Exam: Tachycardia, REGULAR RHYTHM, +S1, +S2. absent: Murmur - GI/Abdominal Exam GI & Abdominal Exam: Soft, Normal Bowel Sounds - Extremities Exam Extremities Exam: Full ROM, Normal Inspection. absent: Pedal Edema, Tenderness - Neurological Exam Neurological Exam: Alert, Awake, CN II-XII Intact, Oriented x3 - Psychiatric Exam Psychiatric exam: Normal Affect, Normal Mood - Skin Skin Exam: Dry, Intact, Normal Color, Warm Assessment and Plan - Assessment and Plan (Free Text) Assessment: COPD exacerbation -duonebs 3ml INH q6h [facility] -Bipap as needed -solumedrol 40mg IV q12h -CXR: bilateral lower lobe infiltrates persist when compared to 02/09 CXR, cardiomegaly Diastolic CHF exacerbation -CXR: bilateral lower lobe infiltrates persist when compared to 02/09 CXR, cardiomegaly -troponin negative. -BNP elevated 1010 -EKG shows sinus rhythm with LBBB -continue coreg 12.5 mg po q 12 -continue losartan 100 mg po daily -continue HCTZ 12.5mg PO daily -continue crestor 5mg PO HS -ECHO 11/2016 shows normal LV function, pulmonary htn -Patient was seen and evaluated by district superintendent Dr Goodman on last visit in February -02/2017 nuclear stress test showed small perfusion defect and mild LV diastolic dysfunction hx of DM -ISS -accuchecks -diabetic diet -home meds: Glipizide 10mg po daily and Metformin 500mg po bid -f/u HgA1C HTN -well controlled -continue losartan 100 mg po daily -continue hctz 12.5 mg po daily. Pulmonary hypertension -treat underlying heart failure -outpatient pulmonary follow up GI/DVT ppx -SCDs -pepcid 20mg PO BID -fall precautions -heparin 5000u SC q8h Management per Dr. Ohara
[2017-03-15] MEDS ORDERED: methylPREDNISolone 40 MG in Sodium Chloride 0.9% 100 ML IVPB SCH (13:45)
[2017-03-15] MEDS: MethylPREDNISolone 40 mg Vial IV SCH (14:38)
[2017-03-15] MEDS: (Novolin R) Insulin Human Regular 100 units/ml vial SC SCH ×2 (17:21→22:30)
[2017-03-15] MEDS: Albuterol-Ipratrop 3 mg / 0.5 (3 ml) UD INH SCH (20:46)
[2017-03-16 00:26] VITALS: RESP 20; O2SAT 96
[2017-03-16] MEDS: Albuterol-Ipratrop 3 mg / 0.5 (3 ml) UD INH SCH ×2 (02:03→08:20)
[2017-03-16] MEDS: MethylPREDNISolone 40 mg Vial IV SCH ×2 (02:09→13:12)
[2017-03-16 07:50] LABS: BASO # 0.1 K/uL (0.0-0.2); BASO % 1.1 % (0.0-2.0); EOS % 0.1 % (0.0-4.0); HEMATOCRIT 41.9 % (34.0-47.0); LYMPH # 1.1 K/uL (1.0-4.3); LYMPH % 19.8 % (20.0-40.0); MEAN CELL VOLUME 82.8 fL (81.0-99.0); MEAN CORPUSCULAR HGB CONC 32.6 g/dL (33.0-37.0); MEAN PLATELET VOLUME 8.4 fL (7.2-11.7); MONO # 0.1 K/uL (0.0-0.8); MONO % 1.6 % (0.0-10.0); RED CELL DISTRIBUTION WIDTH 14.7 % (11.5-14.5); WHITE BLOOD COUNT 5.3 K/uL (4.8-10.8)
[2017-03-16 07:57] LABS: BLOOD UREA NITROGEN 15 mg/dL (7-17); CALCIUM 8.7 mg/dl (8.6-10.4); CARBON DIOXIDE 30 mmol/L (22-30); CHLORIDE 100 mmol/L (98-107); GFR AFRICAN-AMERICAN > 60; GLUCOSE,RANDOM 182 mg/dL (65-105); POTASSIUM 3.5 mmol/L (3.6-5.2); SODIUM 136 mmol/L (132-148)
[2017-03-16 08:23] VITALS: TEMP 97.5
[2017-03-16] MEDS: (Novolin R) Insulin Human Regular 100 units/ml vial SC SCH ×2 (08:45→12:55)
--- NOTE | 2017-03-16 09:03 | HP ---
HISTORY OF PRESENT ILLNESS: Patient comes in with chief complaint of cough, weakness, fatigue, shortness of breath; has history of COPD, CHF. Patient came to the ER and advised admission. PHYSICAL EXAMINATION: GENERAL: Patient is awake, alert, and oriented. VITAL SIGNS: Temperature 98, pulse 90. HEENT: Within normal limits. NECK: Supple. CHEST: Symmetrical. HEART: Regular. ABDOMEN: Soft. EXTREMITIES: No edema. IMPRESSION AND PLAN: The patient suffers from chronic obstructive pulmonary disease and congestive heart failure. Placed on bedrest and supportive care bronchodilator. Shannen Ohara MD
[2017-03-16 09:33] VITALS: BP 169/67
--- NOTE | 2017-03-16 09:55 | CP.PCM.PN ---
Subjective - Date & Time of Evaluation Date of Evaluation: 03/16/17 Time of Evaluation: 07:40 - Subjective Subjective: Medicine Progress Note Patient seen and examined. Patient states that she feels well today. Patient removed her SCDs overnight because she states that they were uncomfortable and were disrupting her sleep. The patient has been out of bed and denies chest pain or shortness of breath at this time. Denies fever, chills, nausea, vomiting, palpitations and headache. Objective - Vital Signs/Intake and Output Vital Signs (last 24 hours): Temp Pulse Resp BP Pulse Ox 97.5 F L 76 20 169/67 H 96 03/16/17 07:00 03/16/17 09:32 03/16/17 07:00 03/16/17 09:33 03/16/17 07:00 - Medications Medications: Current Medications Albuterol/Ipratropium (Duoneb 3 Mg/0.5 Mg (3 Ml) Ud) 3 ml INH RQ6 [facility] Last Admin: 03/16/17 08:20 Dose: 3 ml Carvedilol (Coreg) 12.5 mg PO Q12 [facility] Last Admin: 03/16/17 09:33 Dose: 12.5 mg Famotidine (Pepcid) 20 mg PO BID [facility] Last Admin: 03/16/17 09:33 Dose: 20 mg Glipizide (Glucotrol Xl) 10 mg PO DAILY [facility] Last Admin: 03/16/17 09:33 Dose: 10 mg Heparin Sodium (Porcine) (Heparin) 5,000 units SC Q8 [facility] Last Admin: 03/16/17 06:51 Dose: 5,000 units Hydrochlorothiazide (Microzide) 12.5 mg PO DAILY [facility] Last Admin: 03/16/17 09:33 Dose: 12.5 mg Insulin Human Regular (Novolin R) 0 unit SC ACHS [facility] PRN Reason: Protocol Last Admin: 03/16/17 08:45 Dose: 2 unit Losartan Potassium (Cozaar) 100 mg PO DAILY [facility] Last Admin: 03/16/17 09:33 Dose: 100 mg Metformin HCl (Glucophage) 500 mg PO BID [facility] Last Admin: 03/16/17 09:33 Dose: 500 mg Methylprednisolone (Solu-Medrol) 40 mg IV Q12H [facility] Last Admin: 03/16/17 02:09 Dose: 40 mg Pneumococcal Polyvalent Vaccine (Pneumovax 23 Vaccine) 0.5 ml IM .ONCE ONE Stop: 03/17/17 10:01 Rosuvastatin Calcium (Crestor) 5 mg PO HS [facility] Last Admin: 03/15/17 22:30 Dose: 5 mg - Labs Labs: 03/16/17 07:12 03/16/17 07:12 PT 12.0 SECONDS (9.7-12.2) 03/15/17 07:54 INR 1.1 03/15/17 07:54 - Constitutional Appears: Non-toxic, No Acute Distress - Head Exam Head Exam: ATRAUMATIC, NORMOCEPHALIC - Eye Exam Eye Exam: EOMI, Normal appearance - ENT Exam ENT Exam: Mucous Membranes Moist - Neck Exam Neck Exam: Normal Inspection - Respiratory Exam Respiratory Exam: Clear to Ausculation Bilateral, NORMAL BREATHING PATTERN. absent: Rhonchi, Wheezes, Respiratory Distress - Cardiovascular Exam Cardiovascular Exam: REGULAR RHYTHM, +S1, +S2 - GI/Abdominal Exam GI & Abdominal Exam: Soft, Normal Bowel Sounds - Extremities Exam Extremities Exam: Normal Inspection. absent: Pedal Edema - Neurological Exam Neurological Exam: Alert, Awake, CN II-XII Intact, Oriented x3 - Psychiatric Exam Psychiatric exam: Normal Affect, Normal Mood - Skin Skin Exam: Dry, Intact, Normal Color, Warm Assessment and Plan - Assessment and Plan (Free Text) Assessment: COPD exacerbation -duonebs 3ml INH q6h CHARISMA -Bipap as needed -solumedrol 40mg IV q12h -CXR: bilateral lower lobe infiltrates persist when compared to 02/09 CXR, cardiomegaly Diastolic CHF exacerbation -CXR: bilateral lower lobe infiltrates persist when compared to 02/09 CXR, cardiomegaly -troponin negative. -BNP elevated 1010 -EKG shows sinus rhythm with LBBB -continue coreg 12.5 mg po q 12 -continue losartan 100 mg po daily -continue HCTZ 12.5mg PO daily -continue crestor 5mg PO HS -ECHO 11/2016 shows normal LV function, pulmonary htn -Patient was seen and evaluated by education managers Dr Goodman on last visit in February nuclear stress test showed small perfusion defect and mild LV diastolic dysfunction hx of DM -ISS -accuchecks -diabetic diet -home meds: Glipizide 10mg po daily and Metformin 500mg po bid -HgA1C 5.9, well controlled Patient should stop Glipizide on discharge and only take Metformin. She should follow up with Dr Ohara regarding her diabetes every 3 months. HTN -well controlled -continue losartan 100 mg po daily -continue hctz 12.5 mg po daily. Pulmonary hypertension -treat underlying heart failure -outpatient pulmonary follow up GI/DVT ppx -SCDs -pepcid 20mg PO BID -fall precautions -heparin 5000u SC q8h Dispo: DC today with prednisone taper and nebulizer Management per Dr. Ohara
[2017-03-16] MEDS ORDERED: GlipiZIDE 10 mg SR Tab PO SCH (10:00)
[2017-03-16] MEDS ORDERED: Potassium Chloride 20 mEq ER Tab PO ONE (10:00)
--- NOTE | 2017-03-16 12:26 | CARD ---
APPROVED REPORT EKG Measurement Heart [id number] [place] [id number] <Conclusion> Sinus rhythm with occasional premature ventricular complexes Left axis deviation Left bundle branch block Abnormal ECG
[2017-03-16 13:02] VITALS: PULSE 72
[2017-03-16] MEDS ORDERED: Pneumococcal 23-Valent Vaccine IM ONE (14:00)
[2017-03-16] MEDS ORDERED: Influenza Vaccine 60 mcg/0.5 mL SYR (4YR UP) IM ONE (14:00)
--- NOTE | 2017-03-16 17:05 | PCM.HF ---
Heart Failure Core Measure - Heart Failure Ejection Fraction: 40 % or Greater GEMA Inhibitor Prescribed: No Contraindication/Reason for not providing: on ARB Beta-Leydi Prescribed: Carvedilol Angiotensin II Receptor Leydi Prescribed: Yes AnticoagulationTherapy for Atrial Fibrillation/Atrialflutter: No Contraindication/Reason for not providing: no hx of afib Aldosterone Antagonist Prescribed: No Contraindication/Reason for not providing: ef>45 Hydralazine Nitrate Prescribed: No Contraindication/Reason for not providing: ef.45 Implantable Cardioverter Defibrillator Therapy: No Contraindication/Reason for not providing: ef>45 Cardiac Resynchronization Therapy Prescribed: No Contraindication/Reason for not providing: ef>45 - Follow up Will be discharged to: Home Follow Up Date (must be within 7 days from discharge): 03/20/17 Follow Up Time: 09:00
[2017-03-17] MEDS ORDERED: Influenza Vaccine 60 mcg/0.5 mL SYR (4YR UP) IM ONE (10:00)
[2017-03-17] MEDS ORDERED: Pneumococcal 23-Valent Vaccine IM ONE (10:00)
== END 2017-03-16 15:29 | disposition home or self-care (01) ==
LOC: C.ER 07:11 → C.9E 08:59 → INTOOBSV 08:59 → C.5S 12:26
PROVIDERS: ADMIT Internal Medicine Pulmonary Disease; ATTEND Internal Medicine Pulmonary Disease
DX: I50.33 Acute on chronic diastolic (congestive) heart failure (principal); J44.1 Chronic obstructive pulmonary disease with (acute) exacerbation; I27.20 Pulmonary hypertension, unspecified; I11.0 Hypertensive heart disease with heart failure; E11.9 Type 2 diabetes mellitus without complications; Z79.899 Other long term (current) drug therapy; I25.10 Atherosclerotic heart disease of native coronary artery without angina pectoris
CPT/HCPCS: 36415; 71010; 80048; 80053; 82948; 83036; 83880; 84484; 85025; 85610; 90674; 90732; 93005; 94640; 96374; 97116; 97162; 99285; G0008; G0009; G0378; G8978; G8979; J1644; J1940; J2920

== ENCOUNTER 2017-04-07 08:12 | Inpatient (IN) | payer MEDICARE, OTHER ==
[2017-04-07 08:12] VITALS: BMI 22.3
[2017-04-07 08:42] LABS: BASO # 0.1 K/uL (0.0-0.2); EOS # 0.1 K/uL (0.0-0.7); EOS % 1.8 % (0.0-4.0); HEMOGLOBIN 12.2 g/dL (11.0-16.0); LYMPH # 1.3 K/uL (1.0-4.3); LYMPH % 17.4 % (20.0-40.0); MEAN CELL VOLUME 81.8 fL (81.0-99.0); MEAN CORPUSCULAR HEMOGLOBIN 27.2 pg (27.0-31.0); MEAN CORPUSCULAR HGB CONC 33.3 g/dL (33.0-37.0); MEAN PLATELET VOLUME 7.9 fL (7.2-11.7); MONO # 0.4 K/uL (0.0-0.8); MONO % 5.4 % (0.0-10.0); NEUT # 5.6 K/uL (1.8-7.0); NEUT % 74.4 % (50.0-75.0); RBC 4.48 Mil/uL (3.80-5.20); RED CELL DISTRIBUTION WIDTH 14.5 % (11.5-14.5); WHITE BLOOD COUNT 7.5 K/uL (4.8-10.8)
--- NOTE | 2017-04-07 08:47 | C.PDOC ---
History Of Present Illness 76 yr old female with PMHx of HTN, CHF and diabetes, presents to the ER stating she was having trouble breathing, coughing with phlegm and back pain for 1 day. Patient denies fever, chest pain, SOB, nausea, vomiting, abdominal pain, diarrhea or rash. Time Seen by Provider: 04/07/17 08:22 Chief Complaint (Nursing): Shortness Of Breath History Per: Patient History/Exam Limitations: no limitations Onset/Duration Of Symptoms: Days (1) Past Medical History Reviewed: Historical Data, Nursing Documentation, Vital Signs Vital Signs: Last Vital Signs Temp 97.9 F 04/07/17 16:27 Pulse 77 04/07/17 16:27 Resp 21 04/07/17 16:27 BP 150/63 04/07/17 16:27 Pulse Ox 99 04/07/17 16:27 - Medical History PMH: Arthritis, CHF, Diabetes, HTN, TIA - [facility] Procedures ASSISTANCE WITH RESPIRATORY VENTILATION, >96 HRS, CPAP (02/09/17) Family History: States: No Known Family Hx - Social History Hx Tobacco Use: No Hx Alcohol Use: No Hx Substance Use: No - Immunization History Hx Tetanus Toxoid Vaccination: No Hx Influenza Vaccination: Yes Hx Pneumococcal Vaccination: Yes Review Of Systems Except As Marked, All Systems Reviewed And Found Negative. Constitutional: Negative for: Fever Cardiovascular: Negative for: Chest Pain Respiratory: Negative for: Shortness of Breath Gastrointestinal: Negative for: Nausea, Vomiting, Abdominal Pain, Diarrhea Skin: Negative for: Rash Physical Exam - Physical Exam Appears: Non-toxic, No Acute Distress Skin: Warm, Dry, No Rash Head: Atraumatic, Normacephalic Ear(s): Bilateral: Normal Oral Mucosa: Moist Throat: Normal, No Erythema, No Exudate, No Drooling Neck: Normal, Normal ROM, Supple Cardiovascular: Murmur (3/6 systolic ejection murmur) Respiratory: Rales (at the bases bilateral), No Wheezing Gastrointestinal/Abdominal: Normal Exam, Soft, No Tenderness, No Guarding, No Rebound Extremity: Normal ROM, No Swelling Neurological/Psych: Oriented x3, Normal Speech, Normal Motor, Normal Sensation ED Course And Treatment - Laboratory Results Result Diagrams: 04/07/17 08:39 04/07/17 08:39 ECG: Interpreted By Me, Viewed By Me ECG Rhythm: Sinus Rhythm ECG Interpretation: Normal, No Changes From Prior Interpretation Of ECG: Left axis deviation. T wave inversion in lead 3. LBBB. Rate From EC (BPM) O2 Sat by Pulse Oximetry: 100 (RA) Pulse Ox Interpretation: Normal - Other Rad CXR X-Ray: Viewed By Me, Read By Radiologist Interpretation: PROCEDURE: CHEST RADIOGRAPH, 1 VIEW. HISTORY: sob. COMPARISON: 03/15/2017. FINDINGS: LUNGS: Opacity at both lung bases common nonspecific. PLEURA: Probable small bilateral pleural effusion. CARDIOVASCULAR: Mild congestive change. OSSEOUS STRUCTURES: No significant abnormalities. VISUALIZED UPPER ABDOMEN: Normal. OTHER FINDINGS: None. IMPRESSION: Findings suggestive of pulmonary edema. Follow-up advised. Progress Note: Patient to be admitted to tele under Dr. Wood Medical Decision Making Medical Decision Making: IMPRESSION: SOB PLAN: * CXR * EKG * CBC * CMP * * case discussed with hospitalist and will admit to telemetry. Patient given lasix. Disposition Discussed With : Mar Wood Doctor Will See Patient In The: Hospital Counseled Patient/Family Regarding: Studies Performed, Diagnosis - Disposition Disposition: HOSPITALIZED Disposition Time: 09:22 Condition: FAIR - Clinical Impression Clinical Impression: CHF (congestive heart failure) - Scribe Statement The provider has reviewed the documentation as recorded by the Apoloniaibdhaval Barber Provider Attestation: All medical record entries made by the Apoloniaibdhaval were at my direction and personally dictated by me. I have reviewed the chart and agree that the record accurately reflects my personal performance of the history, physical exam, medical decision making, and the department course for this patient. I have also personally directed, reviewed, and agree with the discharge instructions and disposition.
--- NOTE | 2017-04-07 09:02 | RAD ---
PROCEDURE: CHEST RADIOGRAPH, 1 VIEW HISTORY: sob COMPARISON: 03/15/2017 FINDINGS: LUNGS: Opacity at both lung bases common nonspecific. PLEURA: Probable small bilateral pleural effusion. CARDIOVASCULAR: Mild congestive change. OSSEOUS STRUCTURES: No significant abnormalities. VISUALIZED UPPER ABDOMEN: Normal. OTHER FINDINGS: None. IMPRESSION: Findings suggestive of pulmonary edema. Follow-up advised.
[2017-04-07 09:13] LABS: ALB/GLOB RATIO 1.2 (1.0-2.1); ALBUMIN 3.6 g/dL (3.5-5.0); ALT/SGPT 49 U/L (9-52); AST/SGOT 26 U/L (14-36); BLOOD UREA NITROGEN 14 mg/dL (7-17); CALCIUM 8.5 mg/dl (8.6-10.4); GFR AFRICAN-AMERICAN > 60; GFR NON-AFRICAN AMERICAN > 60
[2017-04-07 09:17] LABS: B-TYPE NATRIURETIC PEPTIDE 1830 pg/mL (0-900); CK-MB 0.86 ng/mL (0.0-3.38)
[2017-04-07] MEDS ORDERED: Albuterol-Ipratrop 3 mg / 0.5 (3 ml) UD INH PRN (12:28)
[2017-04-07] MEDS ORDERED: VALSARTAN PO SCH (12:30)
[2017-04-07] MEDS ORDERED: HYDROCHLOROTHIAZIDE PO SCH (12:30)
[2017-04-07] MEDS ORDERED: Moxifloxacin IV 400mg/250ml NS 400 MG/250 ML BAG IVPB SCH (12:45)
[2017-04-07] MEDS: GlipiZIDE 10 mg SR Tab PO SCH (13:24)
--- NOTE | 2017-04-07 13:28 | CP.PCM.HP ---
History of Present Illness - History of Present Illness History of Present Illness: pt came to er for difficuty breathing and cough Present on Admission - Present on Admission Any Indicators Present on Admission: Yes Review of Systems - Review of Systems Systems not reviewed;Unavailable: Acuity of Condition, Respiratory Distress - Constitutional Constitutional: Fatigue - EENT Eyes: As Per HPI Ears: As Per HPI Nose/Mouth/Throat: As Per HPI - Breasts Breasts: As Per HPI - Cardiovascular Cardiovascular: As Per HPI, Dyspnea on Exertion - Respiratory Respiratory: Dyspnea on Exertion - Gastrointestinal Gastrointestinal: As Per HPI - Genitourinary Genitourinary: As Per HPI - Reproductive: Female Reproductive:Female: As Per HPI - Menstruation Menstruation: Post Menopausal - Musculoskeletal Musculoskeletal: As Per HPI - Integumentary Integumentary: As Per HPI - Neurological Neurological: As Per HPI - Psychiatric Psychiatric: As Per HPI - Endocrine Endocrine: As Per HPI - Hematologic/Lymphatic Hematologic: As Per HPI Past Patient History - Infectious Disease Hx of Infectious Diseases: None - Past Medical History & Family History Past Medical History?: Yes - Past Social History Smoking Status: Never Smoked - CARDIAC Hx Congestive Heart Failure: Yes Hx Hypertension: Yes - PULMONARY Hx Respiratory Disorders: No Hx Pneumonia: Yes - NEUROLOGICAL Hx Transient Ischemic Attacks (TIA): Yes - HEENT Other/Comment: left ear problems hearing - ENDOCRINE/METABOLIC Hx Diabetes Mellitus Type 2: Yes - HEMATOLOGICAL/ONCOLOGICAL Hx Blood Disorders: No - INTEGUMENTARY Hx Dermatological Problems: No - MUSCULOSKELETAL/RHEUMATOLOGICAL Hx Arthritis: Yes - GASTROINTESTINAL Hx Gastrointestinal Disorders: No - GENITOURINARY/GYNECOLOGICAL Hx Genitourinary Disorders: No - PSYCHIATRIC Hx Substance Use: No - SURGICAL HISTORY Hx Surgeries: Yes Hx Cardiac Catheterization: Yes - ANESTHESIA Hx Anesthesia: Yes Hx Anesthesia Reactions: No Hx Malignant Hyperthermia: No Meds Allergies/Adverse Reactions: Allergies Allergy/AdvReac Type Severity Reaction Status Date / Time diazepam [From Valium] Allergy Verified 04/07/17 08:28 Physical Exam - Constitutional Appears: Non-toxic, In Acute Distress - Head Exam Head Exam: ATRAUMATIC - Eye Exam Eye Exam: Normal appearance - ENT Exam ENT Exam: Mucous Membranes Moist - Neck Exam Neck exam: Positive for: Full Rom - Respiratory Exam Respiratory Exam: Decreased Breath Sounds, Rales - Cardiovascular Exam Cardiovascular Exam: REGULAR RHYTHM - GI/Abdominal Exam GI & Abdominal Exam: Normal Bowel Sounds - Rectal Exam Rectal Exam: NORMAL INSPECTION - Exam Exam: NORMAL INSPECTION - Extremities Exam Extremities exam: Positive for: normal inspection - Back Exam Back exam: NORMAL INSPECTION - Neurological Exam Neurological exam: Alert, Oriented x3 - Psychiatric Exam Psychiatric exam: Normal Mood - Skin Skin Exam: Normal Color Results - Vital Signs Recent Vital Signs: Last Vital Signs Temp 98.2 F 04/07/17 08:20 Pulse 88 04/07/17 08:20 Resp 17 04/07/17 08:38 BP 135/64 04/07/17 09:36 Pulse Ox 100 04/07/17 09:24 - Labs Result Diagrams: 04/07/17 08:39 04/07/17 08:39 Labs: Laboratory Results - last 24 hr 04/07/17 04/07/17 08:39 08:39 WBC 7.5 RBC 4.48 Hgb 12.2 Hct 36.6 MCV 81.8 MCH 27.2 MCHC 33.3 RDW 14.5 Plt Count 238 MPV 7.9 Neut % (Auto) 74.4 Lymph % (Auto) 17.4 L [place] % (Auto) 5.4 Eos % (Auto) 1.8 Baso % (Auto) 1.0 Neut # 5.6 Lymph # 1.3 [place] # 0.4 Eos # 0.1 Baso # 0.1 Sodium 136 Potassium 3.7 Chloride 103 Carbon Dioxide 23 Anion Gap 14 BUN 14 Creatinine 0.6 L Est GFR ( Amer) > 60 Est GFR (Non-Af Amer) > 60 Random Glucose 173 H Calcium 8.5 L Total Bilirubin 0.9 AST 26 ALT 49 Alkaline Phosphatase 79 Total Creatine Kinase 32 CK-MB (Mass) 0.86 Troponin I < 0.0120 NT-Pro-B Natriuret Pep 1830 H Total Protein 6.5 Albumin 3.6 Globulin 2.9 Albumin/Globulin Ratio 1.2 Assessment & Plan - Assessment and Plan (Free Text) Assessment: ac sob and cough possible infiltrate chf htn Plan: admit and as per orders - Date & Time Date: 04/07/17 Time: 13:33
[2017-04-07] MEDS: Potassium Chloride 10 mEq ER Tab PO SCH (13:30)
[2017-04-08] MEDS: Albuterol-Ipratrop 3 mg / 0.5 (3 ml) UD INH SCH ×3 (07:30→19:16)
[2017-04-08] MEDS: Potassium Chloride 10 mEq ER Tab PO SCH (09:00)
[2017-04-08] MEDS: GlipiZIDE 10 mg SR Tab PO SCH (09:34)
[2017-04-08] MEDS: Enoxaparin 40 mg Syringe SC SCH (12:11)
[2017-04-08 18:11] VITALS: RESP 20
[2017-04-09] MEDS: Albuterol-Ipratrop 3 mg / 0.5 (3 ml) UD INH SCH ×4 (02:44→19:31)
[2017-04-09] MEDS: Potassium Chloride 10 mEq ER Tab PO SCH (08:31)
[2017-04-09] MEDS: Enoxaparin 40 mg Syringe SC SCH (10:29)
[2017-04-09] MEDS: GlipiZIDE 10 mg SR Tab PO SCH (10:30)
--- NOTE | 2017-04-09 13:38 | CP.PCM.CON ---
History of Present Illness - History of Present Illness History of Present Illness: CC: Shortness of breath HPI: 76 year old female with the following chronic medical conditions 1. Diastolic CHF 2. HTN 3. DM She is admitted to [facility] for worsening shortness of breath and fatigue. Onset was one day. Worse with exertion. Improves with rest. Occurs in the setting of CHF. Review of Systems - Review of Systems All systems: reviewed and no additional remarkable complaints except Past Patient History - Infectious Disease Hx of Infectious Diseases: None - Past Medical History & Family History Past Medical History?: Yes - Past Social History Smoking Status: Never Smoked - CARDIAC Hx Cardiac Disorders: Yes Hx Congestive Heart Failure: Yes Hx Hypertension: Yes - PULMONARY Hx Respiratory Disorders: Yes Hx Pneumonia: Yes - NEUROLOGICAL Hx Neurological Disorder: Yes Hx Transient Ischemic Attacks (TIA): Yes - HEENT Hx HEENT Problems: Yes Other/Comment: left ear problems hearing - ENDOCRINE/METABOLIC Hx Endocrine Disorders: Yes Hx Diabetes Mellitus Type 2: Yes - HEMATOLOGICAL/ONCOLOGICAL Hx Blood Disorders: No - INTEGUMENTARY Hx Dermatological Problems: No - MUSCULOSKELETAL/RHEUMATOLOGICAL Hx Musculoskeletal Disorders: Yes Hx Arthritis: Yes Hx Falls: No - GASTROINTESTINAL Hx Gastrointestinal Disorders: No - GENITOURINARY/GYNECOLOGICAL Hx Genitourinary Disorders: No - PSYCHIATRIC Hx Substance Use: No - SURGICAL HISTORY Hx Surgeries: Yes Hx Cardiac Catheterization: Yes - ANESTHESIA Hx Anesthesia: Yes Hx Anesthesia Reactions: No Hx Malignant Hyperthermia: No Meds Allergies/Adverse Reactions: Allergies Allergy/AdvReac Type Severity Reaction Status Date / Time diazepam [From Valium] Allergy Verified 04/07/17 08:28 - Medications Medications: Current Medications Albuterol/Ipratropium (Duoneb 3 Mg/0.5 Mg (3 Ml) Ud) 3 ml INH RQ6 PRN PRN Reason: Shortness of Breath Last Admin: 04/07/17 22:30 Dose: 3 ml Albuterol/Ipratropium (Duoneb 3 Mg/0.5 Mg (3 Ml) Ud) 3 ml INH RQ6 [facility] Last Admin: 04/09/17 13:27 Dose: 3 ml Carvedilol (Coreg) 12.5 mg PO Q12 [facility] Last Admin: 04/09/17 10:31 Dose: 12.5 mg Enoxaparin Sodium (Lovenox) 40 mg SC DAILY [facility] Last Admin: 04/09/17 10:29 Dose: 40 mg Furosemide (Lasix) 40 mg IVP DAILY [facility] Last Admin: 04/09/17 10:30 Dose: 40 mg Glipizide (Glucotrol Xl) 10 mg PO DAILY [facility] Last Admin: 04/09/17 10:30 Dose: 10 mg Hydrochlorothiazide (Microzide) 12.5 mg PO DAILY [facility] Last Admin: 04/09/17 10:29 Dose: 12.5 mg Ceftriaxone Sodium 1 gm/ (Sodium Chloride) 100 mls @ 200 mls/hr IVPB Q24H [facility] Last Admin: 04/09/17 11:11 Dose: 200 mls/hr Losartan Potassium (Cozaar) 100 mg PO DAILY [facility] Last Admin: 04/09/17 10:31 Dose: 100 mg Potassium Chloride (Klor-Con 10) 10 meq PO BRK [facility] Last Admin: 04/09/17 08:31 Dose: 10 meq Rosuvastatin Calcium (Crestor) 5 mg PO HS [facility] Last Admin: 04/08/17 21:25 Dose: 5 mg Physical Exam - Constitutional Appears: Well, Non-toxic - Head Exam Head Exam: ATRAUMATIC, NORMAL INSPECTION - Eye Exam Eye Exam: PERRL. absent: Scleral icterus - ENT Exam ENT Exam: Mucous Membranes Moist, Normal External Ear Exam - Neck Exam Neck exam: Negative for: Lymphadenopathy, Thyromegaly - Respiratory Exam Respiratory Exam: Wheezes, NORMAL BREATHING PATTERN. absent: Clear to Auscultation Bilateral - Cardiovascular Exam Cardiovascular Exam: REGULAR RHYTHM, JVD, RRR, +S1, +S2 - GI/Abdominal Exam GI & Abdominal Exam: Normal Bowel Sounds. absent: Organomegaly - Extremities Exam Extremities exam: Positive for: calf tenderness. Negative for: pedal edema - Neurological Exam Neurological exam: CN II-XII Intact, Oriented x3 - Psychiatric Exam Psychiatric exam: Normal Affect, Normal Mood Results - Vital Signs Recent Vital Signs: Last Vital Signs Temp 97.6 F 04/09/17 08:00 Pulse 107 H 04/09/17 08:10 Resp 20 04/09/17 08:00 BP 141/63 04/09/17 10:31 Pulse Ox 96 04/09/17 08:00 - Labs Result Diagrams: 04/07/17 08:39 04/07/17 08:39 Labs: Laboratory Results - last 24 hr 04/08/17 04/09/17 04/09/17 17:53 02:06 06:39 POC Glucose (mg/dL) 117 H 144 H 138 H 04/09/17 12:02 POC Glucose (mg/dL) 207 H - EKG Data EKG Interpreted by: Myself EKG shows normal: Sinus rhythm (LBBB) Rate: Normal - Imaging and Cardiology Chest x-ray Status: Image reviewed by me Additional comment: Bilateral pleural effusions Assessment & Plan - Assessment and Plan (Free Text) Assessment: 76 year old female with acute on chronic diastolic CHF agree with diuresis with IV lasix x 24 - 48 more hours, she has a regular cardiology appointment with Dr. Delgado this coming . Coreg, losartan. Nuclear stress test in 2016 shows Mild LV dysfunction with fixed apical infarct. HTN is chronic and stable on current meds DM chronic continue glipizide
[2017-04-10] MEDS: Albuterol-Ipratrop 3 mg / 0.5 (3 ml) UD INH SCH ×3 (02:39→15:06)
--- NOTE | 2017-04-10 08:14 | CP.PCM.PN ---
Subjective - Date & Time of Evaluation Date of Evaluation: 04/10/17 Time of Evaluation: 09:00 - Subjective Subjective: Dr. Ohara note: Patient is a 76 year old female with a histoy of dialstolic dysfunction, HTN, and DM was admitted for acute on chronic CHF exerbation and put on IV lasix for the past 3 days. She is feeling much better with less lower leg swelling and chest congestion. She is stable for discharge from cardiology standpoint. Objective - Vital Signs/Intake and Output Vital Signs (last 24 hours): Temp Pulse Resp BP Pulse Ox 98.3 F 79 20 132/67 97 04/09/17 23:05 04/10/17 01:00 04/09/17 23:05 04/09/17 23:05 04/09/17 23:05 Intake and Output: 04/10/17 04/10/17 06:59 18:59 Intake Total 320 Balance 320 - Medications Medications: Current Medications Albuterol/Ipratropium (Duoneb 3 Mg/0.5 Mg (3 Ml) Ud) 3 ml INH RQ6 PRN PRN Reason: Shortness of Breath Last Admin: 04/07/17 22:30 Dose: 3 ml Albuterol/Ipratropium (Duoneb 3 Mg/0.5 Mg (3 Ml) Ud) 3 ml INH RQ6 [facility] Last Admin: 04/10/17 07:56 Dose: 3 ml Carvedilol (Coreg) 12.5 mg PO Q12 [facility] Last Admin: 04/09/17 21:19 Dose: 12.5 mg Enoxaparin Sodium (Lovenox) 40 mg SC DAILY [facility] Last Admin: 04/09/17 10:29 Dose: 40 mg Furosemide (Lasix) 40 mg IVP DAILY [facility] Last Admin: 04/09/17 10:30 Dose: 40 mg Glipizide (Glucotrol Xl) 10 mg PO DAILY [facility] Last Admin: 04/09/17 10:30 Dose: 10 mg Hydrochlorothiazide (Microzide) 12.5 mg PO DAILY [facility] Last Admin: 04/09/17 10:29 Dose: 12.5 mg Ceftriaxone Sodium 1 gm/ (Sodium Chloride) 100 mls @ 200 mls/hr IVPB Q24H [facility] Last Admin: 04/09/17 11:11 Dose: 200 mls/hr Losartan Potassium (Cozaar) 100 mg PO DAILY [facility] Last Admin: 04/09/17 10:31 Dose: 100 mg Potassium Chloride (Klor-Con 10) 10 meq PO BRK [facility] Last Admin: 04/09/17 08:31 Dose: 10 meq Rosuvastatin Calcium (Crestor) 5 mg PO HS [facility] Last Admin: 04/09/17 21:19 Dose: 5 mg - Labs Labs: 04/07/17 08:39 04/07/17 08:39 - Constitutional Appears: Non-toxic, No Acute Distress - Eye Exam Eye Exam: Normal appearance - Respiratory Exam Respiratory Exam: Clear to Ausculation Bilateral. absent: Rales, Rhonchi, Wheezes - Cardiovascular Exam Cardiovascular Exam: REGULAR RHYTHM, RRR, +S1, +S2. absent: Gallop, Rubs - GI/Abdominal Exam GI & Abdominal Exam: Soft, Normal Bowel Sounds. absent: Tenderness - Extremities Exam Extremities Exam: Normal Inspection. absent: Calf Tenderness, Pedal Edema, Tenderness - Back Exam Back Exam: NORMAL INSPECTION. absent: CVA tenderness (L), CVA tenderness (R) - Neurological Exam Neurological Exam: Oriented x3 - Psychiatric Exam Psychiatric exam: Normal Affect, Normal Mood - Skin Skin Exam: Normal Color Assessment and Plan (1) CHF (congestive heart failure) Assessment & Plan: Patient is discharged home, stable from cardiac view. Advised patient to eat a low salt diet and to take Lasix if she needs it. Status: Acute (2) Hypokalemia Assessment & Plan: K was 2.9, replaced with 40 meq x3. Status: Acute (3) Diabetes mellitus Assessment & Plan: continue her home medication, follow up with PMD. Status: Acute (4) HTN (hypertension) Status: Acute (5) Prophylactic measure Status: Acute
[2017-04-10] MEDS ORDERED: Glucagon Recombinant 1 mg Inj IM PRN (08:16)
[2017-04-10] MEDS ORDERED: Dextrose 50% SYRINGE Inj (50 ml) IV PRN (08:16)
[2017-04-10] MEDS: Potassium Chloride 10 mEq ER Tab PO SCH (08:49)
[2017-04-10] MEDS: Enoxaparin 40 mg Syringe SC SCH (09:55)
[2017-04-10] MEDS: GlipiZIDE 10 mg SR Tab PO SCH (09:55)
--- NOTE | 2017-04-10 11:44 | HP ---
HISTORY OF PRESENT ILLNESS: This is a 76-year-old female chief complaint shortness of breath, weakness, fatigue, tiredness. The patient came to the ER, advised admission. The patient has history of COPD. PHYSICAL EXAMINATION: GENERAL: The patient is awake, alert, oriented. VITAL SIGNS: Temperature 98, pulse 90. HEENT: Within normal limits. NECK: Supple. CHEST: Symmetrical. HEART: Regular. ABDOMEN: Soft. EXTREMITIES: No edema. IMPRESSION: patient has history of congestive heart failure, chronic obstructive pulmonary disease. Patient advised bedrest, supportive care. Shannen Ohara MD
--- NOTE | 2017-04-10 12:39 | CP.PCM.PN ---
Subjective - Date & Time of Evaluation Date of Evaluation: 04/10/17 Time of Evaluation: 12:47 - Subjective Subjective: No CP or SOB LE edema and congestion improved + inc Blood sugars Normal appetite No GI complaints Objective - Vital Signs/Intake and Output Vital Signs (last 24 hours): Temp Pulse Resp BP Pulse Ox 97.7 F 81 20 147/70 100 04/10/17 07:50 04/10/17 10:01 04/10/17 07:50 04/10/17 10:01 04/10/17 07:50 Intake and Output: 04/10/17 04/10/17 06:59 18:59 Intake Total 320 Balance 320 - Medications Medications: Current Medications Albuterol/Ipratropium (Duoneb 3 Mg/0.5 Mg (3 Ml) Ud) 3 ml INH RQ6 PRN PRN Reason: Shortness of Breath Last Admin: 04/07/17 22:30 Dose: 3 ml Albuterol/Ipratropium (Duoneb 3 Mg/0.5 Mg (3 Ml) Ud) 3 ml INH RQ6 [facility] Last Admin: 04/10/17 07:56 Dose: 3 ml Carvedilol (Coreg) 12.5 mg PO Q12 [facility] Last Admin: 04/10/17 09:55 Dose: 12.5 mg Dextrose (Dextrose 50% Inj) 0 ml IV STAT PRN; Protocol PRN Reason: Hypoglycemia Protocol Dextrose (Glutose 15) 15 gm PO ONCE PRN; Protocol PRN Reason: Hypoglycemia Protocol Enoxaparin Sodium (Lovenox) 40 mg SC DAILY [facility] Last Admin: 04/10/17 09:55 Dose: 40 mg Furosemide (Lasix) 40 mg IVP DAILY [facility] Last Admin: 04/10/17 09:55 Dose: 40 mg Glipizide (Glucotrol Xl) 10 mg PO DAILY [facility] Last Admin: 04/10/17 09:55 Dose: 10 mg Glucagon (Glucagen Diagnostic Kit) 1 mg IM STAT PRN; Protocol PRN Reason: Hypoglycemia Protocol Hydrochlorothiazide (Microzide) 12.5 mg PO DAILY [facility] Last Admin: 04/10/17 09:59 Dose: 12.5 mg Ceftriaxone Sodium 1 gm/ (Sodium Chloride) 100 mls @ 200 mls/hr IVPB Q24H [facility] Last Admin: 04/10/17 12:14 Dose: 200 mls/hr Dextrose (Dextrose 5% In Water 1000 Ml) 1,000 mls @ 0 mls/hr IV .Q0M PRN; Protocol; Per Protocol PRN Reason: Hypoglycemia Protocol Insulin Human Regular (Novolin R) 0 unit SC ACHS [facility] PRN Reason: Protocol Losartan Potassium (Cozaar) 100 mg PO DAILY [facility] Last Admin: 04/10/17 09:55 Dose: 100 mg Potassium Chloride (Klor-Con 10) 10 meq PO BRK [facility] Last Admin: 04/10/17 08:49 Dose: 10 meq Rosuvastatin Calcium (Crestor) 5 mg PO HS [facility] Last Admin: 04/09/17 21:19 Dose: 5 mg - Labs Labs: 04/07/17 08:39 04/07/17 08:39 - Constitutional Appears: No Acute Distress - Head Exam Head Exam: ATRAUMATIC, NORMAL INSPECTION, NORMOCEPHALIC - Eye Exam Eye Exam: EOMI, Normal appearance, PERRL - ENT Exam ENT Exam: Mucous Membranes Moist, Normal Oropharynx - Respiratory Exam Respiratory Exam: Clear to Ausculation Bilateral, NORMAL BREATHING PATTERN. absent: Rhonchi, Wheezes - Cardiovascular Exam Cardiovascular Exam: REGULAR RHYTHM, +S1, +S2. absent: +S4, Murmur - Extremities Exam Extremities Exam: Normal Inspection. absent: Calf Tenderness, Pedal Edema - Neurological Exam Neurological Exam: Alert, Awake, Oriented x3 - Psychiatric Exam Psychiatric exam: Normal Affect, Normal Mood Assessment and Plan - Assessment and Plan (Free Text) Assessment: 76 year old female with acute on chronic diastolic CHF agree with diuresis with IV lasix x 24 - 48 more hours, she has a regular cardiology appointment with her inner tube inserter: Dr. Mayorga this coming . > Coreg, losartan, lasix, ASA and statin > Cont pulmonary supportive care: noted ABX Nuclear stress test in 12/2016 shows Mild LV dysfunction with fixed apical infarct no reversible ischemia. HTN is chronic and stable on current meds DM chronic continue glipizide d/c when stable per cardiac.
[2017-04-10 12:40] LABS: BASO # 0.2 K/uL (0.0-0.2); EOS # 0.6 K/uL (0.0-0.7); EOS % 6.6 % (0.0-4.0); LYMPH # 1.7 K/uL (1.0-4.3); LYMPH % 19.9 % (20.0-40.0); MEAN CELL VOLUME 81.3 fL (81.0-99.0); MEAN CORPUSCULAR HEMOGLOBIN 27.2 pg (27.0-31.0); MEAN CORPUSCULAR HGB CONC 33.4 g/dL (33.0-37.0); MEAN PLATELET VOLUME 8.5 fL (7.2-11.7); MONO # 0.7 K/uL (0.0-0.8); MONO % 8.4 % (0.0-10.0); NEUT # 5.5 K/uL (1.8-7.0); NEUT % 63.1 % (50.0-75.0); RBC 5.17 Mil/uL (3.80-5.20); RED CELL DISTRIBUTION WIDTH 14.5 % (11.5-14.5); WHITE BLOOD COUNT 8.7 K/uL (4.8-10.8)
[2017-04-10] MEDS: (Novolin R) Insulin Human Regular 100 units/ml vial SC SCH ×2 (12:52→17:11)
[2017-04-10 13:06] LABS: ALB/GLOB RATIO 1.3 (1.0-2.1); ALBUMIN 3.9 g/dL (3.5-5.0); ALT/SGPT 34 U/L (9-52); AST/SGOT 21 U/L (14-36); BLOOD UREA NITROGEN 30 mg/dL (7-17); CALCIUM 8.8 mg/dl (8.6-10.4); GFR AFRICAN-AMERICAN > 60; GFR NON-AFRICAN AMERICAN > 60; MAGNESIUM 1.9 mg/dL (1.6-2.3)
[2017-04-10] MEDS: Potassium Chloride 20 mEq ER Tab PO SCH ×3 (14:15→16:25)
[2017-04-10 17:22] VITALS: BP 148/76; PULSE 79; TEMP 97.8; O2SAT 97
--- NOTE | 2017-04-11 08:10 | PN ---
DATE: 04/09/2017 SUBJECTIVE: Patient is complaining of shortness of breath and bronchodilator. Shannen Ohara MD
--- NOTE | 2017-04-11 09:49 | PCM.HF ---
Heart Failure Core Measure - Heart Failure Ejection Fraction: 40 % or Greater GEMA Inhibitor Prescribed: No Contraindication/Reason for not providing: on ARB Beta-Leydi Prescribed: Carvedilol Angiotensin II Receptor Leydi Prescribed: Yes AnticoagulationTherapy for Atrial Fibrillation/Atrialflutter: No Contraindication/Reason for not providing: no hx of af ib Aldosterone Antagonist Prescribed: No Contraindication/Reason for not providing: EF>50 Contraindication/Reason for not providing: ef.50 Implantable Cardioverter Defibrillator Therapy: No Contraindication/Reason for not providing: ef>50 Cardiac Resynchronization Therapy Prescribed: No Contraindication/Reason for not providing: nsr/ef>50 - Follow up Will be discharged to: Home Follow Up Date (must be within 7 days from discharge): 04/14/17 Follow Up Time: 09:00
== END 2017-04-10 18:37 | disposition home or self-care (01) | DRG 293 ==
LOC: C.ER 08:12 → C.9E 09:22 → C.6T 16:51
PROVIDERS: ADMIT Internal Medicine; ATTEND Internal Medicine Pulmonary Disease
DX: I11.0 Hypertensive heart disease with heart failure (principal); I50.33 Acute on chronic diastolic (congestive) heart failure; J44.9 Chronic obstructive pulmonary disease, unspecified; E11.9 Type 2 diabetes mellitus without complications; I44.7 Left bundle-branch block, unspecified; Z86.73 Personal history of transient ischemic attack (TIA), and cerebral infarction without residual deficits; Z79.84 Long term (current) use of oral hypoglycemic drugs

== ENCOUNTER 2017-05-11 10:12 | Emergency (ER) | payer MEDICARE, OTHER ==
[2017-05-11 10:13] VITALS: BMI 22.3
[2017-05-11 12:13] LABS: BASO # 0.1 K/uL (0.0-0.2); BASO % 1.4 % (0.0-2.0); EOS # 0.1 K/uL (0.0-0.7); HEMOGLOBIN 11.4 g/dL (11.0-16.0); LYMPH # 2.2 K/uL (1.0-4.3); LYMPH % 31.8 % (20.0-40.0); MEAN CELL VOLUME 81.8 fL (81.0-99.0); MEAN CORPUSCULAR HEMOGLOBIN 27.2 pg (27.0-31.0); MEAN CORPUSCULAR HGB CONC 33.3 g/dL (33.0-37.0); MEAN PLATELET VOLUME 8.3 fL (7.2-11.7); MONO # 0.4 K/uL (0.0-0.8); MONO % 5.7 % (0.0-10.0); NEUT # 4.1 K/uL (1.8-7.0); NEUT % 60.1 % (50.0-75.0); RBC 4.19 Mil/uL (3.80-5.20); RED CELL DISTRIBUTION WIDTH 14.7 % (11.5-14.5); WHITE BLOOD COUNT 6.8 K/uL (4.8-10.8)
--- NOTE | 2017-05-11 12:24 | C.PDOC ---
History Of Present Illness 77 y/o female with PMHx of HTN, DM and CAD presents to ED for evaluation for difficulty breathing this morning. Pt notes that when she woke up she felt some difficulty breathing. She notes she gets these symptoms occasionally and used nebulizer with complete resolution. She notes that because she has a h/o "a little fluid in my lungs" she just wanted to make sure shes ok. Admits to occasional cough. Denies every having chest pain. Patient is compliant with her chronic medications. Denies fever, leg swelling, chest pain or any other complaints at this time. Time Seen by Provider: 05/11/17 11:20 Chief Complaint (Nursing): Shortness Of Breath History Per: Patient History/Exam Limitations: no limitations Onset/Duration Of Symptoms: Hrs Current Symptoms Are (Timing): Still Present Initiating Event: Upper Respiratory Illness Past Medical History Reviewed: Historical Data, Nursing Documentation, Vital Signs Vital Signs: Last Vital Signs Temp 98.9 F 05/11/17 13:14 Pulse 74 05/11/17 13:14 Resp 18 05/11/17 13:14 BP 142/71 05/11/17 13:14 Pulse Ox 96 05/11/17 14:46 - Medical History PMH: Arthritis, CHF, Diabetes, HTN, Pneumonia, TIA Surgical History: No Surg Hx - [facility] Procedures ASSISTANCE WITH RESPIRATORY VENTILATION, >96 HRS, CPAP (02/09/17) Family History: States: No Known Family Hx - Social History Hx Tobacco Use: No Hx Alcohol Use: No Hx Substance Use: No - Immunization History Hx Tetanus Toxoid Vaccination: No Hx Influenza Vaccination: No Hx Pneumococcal Vaccination: No Review Of Systems Constitutional: Negative for: Fever, Chills Cardiovascular: Negative for: Chest Pain Respiratory: Positive for: Cough. Negative for: Shortness of Breath Gastrointestinal: Negative for: Nausea, Vomiting Physical Exam - Physical Exam Appears: Non-toxic, No Acute Distress Skin: Warm, Dry, No Rash Head: Atraumatic, Normacephalic Eye(s): bilateral: Normal Inspection, EOMI Nose: Normal Oral Mucosa: Moist Throat: Normal, No Erythema, No Exudate Neck: Normal ROM, Supple Chest: Symmetrical Cardiovascular: Rhythm Regular Respiratory: No Accessory Muscle Use, Rales (Bilaterally at bases), No Rhonchi, No Wheezing Gastrointestinal/Abdominal: Soft, No Tenderness, No Guarding, No Rebound Extremity: Normal ROM, No Pedal Edema, Capillary Refill (<2 seconds) Neurological/Psych: Oriented x3 ED Course And Treatment - Laboratory Results Result Diagrams: 05/11/17 12:07 05/11/17 12:07 ECG: Interpreted By Me, Viewed By Me ECG Rhythm: Sinus Rhythm, L BBB ECG Interpretation: No Changes From Prior Rate From EC (BPM) O2 Sat by Pulse Oximetry: 96 (RA) Pulse Ox Interpretation: Normal - Other Rad CXR X-Ray: Viewed By Me, Read By Radiologist Interpretation: HISTORY: SOB. COMPARISON: Chest x-ray performed 04/07/17. TECHNIQUE: Chest PA and lateral. FINDINGS: Examination limited by habitus. LUNGS: Right hilar prominence. Moderate interstitial markings may reflect infection or edema. Bibasilar atelectasis or infiltrates. Please note that chest x-ray has limited sensitivity for the detection of pulmonary masses. PLEURA: No significant pleural effusion identified. No definite pneumothorax . CARDIOVASCULAR: Heart size appears top normal. Atherosclerotic calcifications of the aorta. OSSEOUS STRUCTURES: Degenerative changes. VISUALIZED UPPER ABDOMEN: Unremarkable. OTHER FINDINGS: None. IMPRESSION: Moderate interstitial markings may reflect infection or edema. Bibasilar atelectasis or infiltrates. Right hilar prominence. Follow-up advised. Progress Note: CXR, ECG, Blood work ordered. On reassessment, patient is resting comfortably with no wheezing, chest pain, or retractions. Pt was offered to stay in the hospital, notes she feels well and does not want to stay. Offers no complaints. Work up appears baseline for pt. instructed to return to ER if symtpoms persist or worsen. Grandson at bedside, understands risks without admission. Administrative Dietitian used to ensure understanding. Patient was advised to follow up with physician/clinic in 1-2 days and return to ED if symptoms worsen or persist. Case discussed with Dr Mayo, agreed upon plan and instructs RX as prescribed. Disposition - Disposition Disposition: HOME/ ROUTINE Disposition Time: 13:04 Condition: STABLE Additional Instructions: Vaya a garcia mdico o la clnica en 1-3 skelton sin falta, para mas evaluacin. Alberton los medicamentos debbie indicado. Volver a la ashlyn de emergencia en cualquier momento si los sntomas persisten o empeoran. Prescriptions: Azithromycin [Zithromax] 250 mg PO DAILY #6 tab predniSONE [Prednisone] 20 mg PO DAILY #4 tab Instructions: Upper Respiratory Infection (ED) Forms: to-[facility] (Uzbek) Print Language: MICRONESIAN - Clinical Impression Clinical Impression: Bronchitis - PA / COOKER SODA / Resident Statement MD/DO has reviewed & agrees with the documentation as recorded. - Scribe Statement The provider has reviewed the documentation as recorded by the Jared Neumann All medical record entries made by the Jared were at my direction and personally dictated by me. I have reviewed the chart and agree that the record accurately reflects my personal performance of the history, physical exam, medical decision making, and the department course for this patient. I have also personally directed, reviewed, and agree with the discharge instructions and disposition.
[2017-05-11 12:34] LABS: ALB/GLOB RATIO 1.3 (1.0-2.1); ALBUMIN 3.9 g/dL (3.5-5.0); ALT/SGPT 54 U/L (9-52); AST/SGOT 32 U/L (14-36); BLOOD UREA NITROGEN 15 mg/dL (7-17); CALCIUM 9.4 mg/dl (8.6-10.4); GFR AFRICAN-AMERICAN > 60; GFR NON-AFRICAN AMERICAN > 60
[2017-05-11 12:41] LABS: B-TYPE NATRIURETIC PEPTIDE 1710 pg/mL (0-900); CK-MB 0.58 ng/mL (0.0-3.38)
[2017-05-11 13:16] VITALS: BP 142/71; PULSE 74; RESP 18; TEMP 98.9
--- NOTE | 2017-05-11 14:11 | RAD ---
HISTORY: SOB COMPARISON: Chest x-ray performed 04/07/17 TECHNIQUE: Chest PA and lateral FINDINGS: Examination limited by habitus. LUNGS: Right hilar prominence. Moderate interstitial markings may reflect infection or edema. Bibasilar atelectasis or infiltrates. Please note that chest x-ray has limited sensitivity for the detection of pulmonary masses. PLEURA: No significant pleural effusion identified. No definite pneumothorax . CARDIOVASCULAR: Heart size appears top normal. Atherosclerotic calcifications of the aorta. OSSEOUS STRUCTURES: Degenerative changes. VISUALIZED UPPER ABDOMEN: Unremarkable. OTHER FINDINGS: None. IMPRESSION: Moderate interstitial markings may reflect infection or edema. Bibasilar atelectasis or infiltrates. Right hilar prominence. Follow-up advised.
[2017-05-11 14:18] VITALS: O2SAT 96
--- NOTE | 2017-05-13 15:18 | CARD ---
APPROVED REPORT EKG Measurement Heart [id number] MN [id number] [id number] <Conclusion> Normal sinus rhythm Left axis deviation Left bundle branch block Abnormal ECG
== END 2017-05-11 13:14 | disposition home or self-care (01) ==
LOC: C.ER 10:12
DX: J40 Bronchitis, not specified as acute or chronic (principal); E11.9 Type 2 diabetes mellitus without complications; I50.9 Heart failure, unspecified; I10 Essential (primary) hypertension

== ENCOUNTER 2017-06-07 08:26 | Inpatient (IN) | payer MEDICARE, OTHER ==
[2017-06-07 08:26] VITALS: BMI 22.3
[2017-06-07 09:23] LABS: BASO # 0.1 K/uL (0.0-0.2); BASO % 1.4 % (0.0-2.0); EOS # 0.2 K/uL (0.0-0.7); EOS % 2.7 % (0.0-4.0); HEMOGLOBIN 11.3 g/dL (11.0-16.0); LYMPH # 1.5 K/uL (1.0-4.3); LYMPH % 22.3 % (20.0-40.0); MEAN CELL VOLUME 81.8 fL (81.0-99.0); MEAN CORPUSCULAR HEMOGLOBIN 27.1 pg (27.0-31.0); MEAN CORPUSCULAR HGB CONC 33.1 g/dL (33.0-37.0); MEAN PLATELET VOLUME 8.4 fL (7.2-11.7); MONO # 0.3 K/uL (0.0-0.8); MONO % 4.5 % (0.0-10.0); NEUT # 4.6 K/uL (1.8-7.0); NEUT % 69.1 % (50.0-75.0); NRBC % 0.1 % (0.0-2.0); RBC 4.17 Mil/uL (3.80-5.20); RED CELL DISTRIBUTION WIDTH 15.3 % (11.5-14.5); WHITE BLOOD COUNT 6.7 K/uL (4.8-10.8)
--- NOTE | 2017-06-07 09:25 | RAD ---
PROCEDURE: CHEST RADIOGRAPH, 1 VIEW HISTORY: SOB COMPARISON: Chest radiograph dated 05/11/2017. FINDINGS: LUNGS: Stable chronic prominence of the bilateral interstitial markings. No focal consolidation. PLEURA: No pneumothorax or pleural fluid seen. CARDIOVASCULAR: Atherosclerotic aortic calcifications. Cardiomediastinal silhouette stably prominent. OSSEOUS STRUCTURES: Unchanged. VISUALIZED UPPER ABDOMEN: Normal. OTHER FINDINGS: None. IMPRESSION: Stable chronic prominence of the bilateral interstitial markings. No focal consolidation or pleural effusion.
[2017-06-07 09:31] LABS: INR 1.1; PROTHROMBIN TIME 12.5 SECONDS (9.7-12.2)
[2017-06-07 09:40] LABS: ALB/GLOB RATIO 1.4 (1.0-2.1); ALBUMIN 3.9 g/dL (3.5-5.0); ALT/SGPT 34 U/L (9-52); AST/SGOT 36 U/L (14-36); BLOOD UREA NITROGEN 17 mg/dL (7-17); CALCIUM 9.1 mg/dl (8.6-10.4); GFR AFRICAN-AMERICAN > 60; GFR NON-AFRICAN AMERICAN > 60
[2017-06-07 09:49] LABS: B-TYPE NATRIURETIC PEPTIDE 1160 pg/mL (0-900); CK-MB 0.62 ng/mL (0.0-3.38)
--- NOTE | 2017-06-07 10:31 | C.PDOC ---
History Of Present Illness Patient presents to ED c/o exertional SOB since early this morning. PMHx of CHF , CAD, DM, HTN, is s/p cardiac catheterization at [facility] last week (no stents as per patient). She denies fever, chest pain, abdominal pain, nausea/vomiting. Patient admits to nonproductive cough. Time Seen by Provider: 06/07/17 08:39 Chief Complaint (Nursing): Cough, Cold, Congestion History Per: Patient History/Exam Limitations: no limitations Onset/Duration Of Symptoms: Hrs Current Symptoms Are (Timing): Still Present Exacerbating Factor(s): Exertion, Laying Flat Current Respiratory Medications: See Home Med List Severity: Moderate Past Medical History Reviewed: Historical Data, Nursing Documentation, Vital Signs Vital Signs: Last Vital Signs Temp 97.8 F 06/07/17 08:40 Pulse 69 06/07/17 09:44 Resp 21 06/07/17 09:44 BP 122/58 L 06/07/17 09:44 Pulse Ox 99 06/07/17 09:44 - Medical History PMH: Arthritis, CHF, Diabetes, HTN, Pneumonia, TIA - [facility] Procedures ASSISTANCE WITH RESPIRATORY VENTILATION, >96 HRS, CPAP (02/09/17) Family History: States: No Known Family Hx - Social History Hx Tobacco Use: No Hx Alcohol Use: No Hx Substance Use: No - Immunization History Hx Tetanus Toxoid Vaccination: No Hx Influenza Vaccination: No Hx Pneumococcal Vaccination: No Review Of Systems Except As Marked, All Systems Reviewed And Found Negative. Constitutional: Negative for: Fever, Chills Cardiovascular: Negative for: Chest Pain, Palpitations Respiratory: Positive for: Cough, Shortness of Breath, SOB with Excertion. Negative for: Wheezing Gastrointestinal: Negative for: Nausea, Vomiting, Abdominal Pain, Diarrhea Skin: Negative for: Rash Physical Exam - Physical Exam Appears: Non-toxic, No Acute Distress, Other (speaking in full sentences) Head: Normacephalic Eye(s): bilateral: Normal Inspection Oral Mucosa: Moist Cardiovascular: Rhythm Regular Respiratory: No Accessory Muscle Use, Rales (at bases B/L ), No Rhonchi, No Wheezing Gastrointestinal/Abdominal: Normal Exam, Bowel Sounds, Soft, No Tenderness Extremity: Pedal Edema (+1 pitting edema B/L LEs), No Calf Tenderness Pulses: Left Dorsalis Pedis: Normal, Right Dorsalis Pedis: Normal Neurological/Psych: Oriented x3 ED Course And Treatment - Laboratory Results Result Diagrams: 06/07/17 09:20 06/07/17 09:20 ECG: Interpreted By Me, Viewed By Me (NSR 71 bpm, left axis deviation, LBBB, no acute ST changes - prior EKG confirms old LBBB) ECG Interpretation: Abnormal O2 Sat by Pulse Oximetry: 99 (RA) Pulse Ox Interpretation: Normal Progress Note: Blood work, CXR, EKG ordered and reviewed. Patient given IV Lasix 40mg. Disposition - Disposition
[2017-06-07 16:32] VITALS: RESP 20
[2017-06-07] MEDS ORDERED: Albuterol-Ipratrop 3 mg / 0.5 (3 ml) UD INH PRN (18:32)
[2017-06-07] MEDS: (Novolog) Insulin Aspart, Recombinant 100 u/ml 10 ml vial SC SCH (21:53)
[2017-06-08] MEDS: (Novolog) Insulin Aspart, Recombinant 100 u/ml 10 ml vial SC SCH ×3 (08:23→12:12)
[2017-06-08] MEDS ORDERED: GlipiZIDE 5 mg SR Tab PO SCH (10:00)
[2017-06-08] MEDS ORDERED: Enoxaparin 40 mg Syringe SC SCH (10:00)
--- NOTE | 2017-06-08 10:43 | CP.PCM.PN ---
Subjective - Date & Time of Evaluation Date of Evaluation: 06/08/17 Time of Evaluation: 10:38 - Subjective Subjective: PGY-[address] Ohara's Service: Pt seen and examined at bedside. Nursing reports no acute events overnight. Patient found working with physical therapist, walking the halls without issue. She states she is breathing much better since admission, and is not short of breath with activity. Admits she is watching her fluid intake, and has appointment to see her md psychiatry, Dr. Palmer, tomorrow. Objective - Vital Signs/Intake and Output Vital Signs (last 24 hours): Temp Pulse Resp BP Pulse Ox 98.1 F 68 20 111/63 98 06/07/17 23:50 06/08/17 04:39 06/07/17 23:50 06/07/17 23:50 06/07/17 23:50 Intake and Output: 06/08/17 06/08/17 06:59 18:59 Intake Total 600 Balance 600 - Medications Medications: Current Medications Albuterol/Ipratropium (Duoneb 3 Mg/0.5 Mg (3 Ml) Ud) 3 ml INH RQ6 PRN PRN Reason: Shortness of Breath Carvedilol (Coreg) 25 mg PO Q12 [facility] Last Admin: 06/07/17 21:51 Dose: 25 mg Enoxaparin Sodium (Lovenox) 40 mg SC DAILY [facility] Furosemide (Lasix) 40 mg IVP BID [facility] Last Admin: 06/07/17 19:09 Dose: 40 mg Glipizide (Glucotrol Xl) 5 mg PO DAILY [facility] Insulin Aspart (Novolog) 0 unit SC ACHS [facility] PRN Reason: Protocol Last Admin: 06/08/17 08:25 Dose: Not Given Losartan Potassium (Cozaar) 100 mg PO DAILY [facility] Metformin HCl (Glucophage) 500 mg PO DAILY [facility] - Labs Labs: 06/07/17 09:20 06/07/17 09:20 PT 12.5 SECONDS (9.7-12.2) H 06/07/17 09:20 INR 1.1 06/07/17 09:20 APTT 31 SECONDS (21-34) 06/07/17 09:20 - Constitutional Appears: Non-toxic, No Acute Distress - Head Exam Head Exam: ATRAUMATIC, NORMAL INSPECTION - Eye Exam Eye Exam: EOMI Pupil Exam: PERRL - ENT Exam ENT Exam: Mucous Membranes Moist - Neck Exam Neck Exam: Full ROM - Respiratory Exam Respiratory Exam: Clear to Ausculation Bilateral, NORMAL BREATHING PATTERN - Cardiovascular Exam Cardiovascular Exam: REGULAR RHYTHM, +S1, +S2. absent: +S4, Murmur - GI/Abdominal Exam GI & Abdominal Exam: Soft, Normal Bowel Sounds. absent: Tenderness - Extremities Exam Extremities Exam: Normal Inspection. absent: Pedal Edema - Back Exam Back Exam: absent: CVA tenderness (L), CVA tenderness (R) - Neurological Exam Neurological Exam: Alert, Awake, Oriented x3 - Psychiatric Exam Psychiatric exam: Normal Affect, Normal Mood - Skin Skin Exam: Dry, Normal Color, Warm Assessment and Plan - Assessment and Plan (Free Text) Plan: Diastolic CHF exacerbation Admit to telemetry BNP: 1160 (mild elevation; in line with previous admissions: 1710, 1830, 1010) CXR (06/07/17): Stable chronic prominence of b/l interstitial markings. No focal consolidation or pleural effusion. Atherosclerotic aortic calcifications. (see full report) EKG (06/08/17): 63 bpm, sinus rhythm with LBBB (chronic on multiple previous EKGs) , No acute St/T wave changes ECHO 11/2016 shows normal LV function, pulmonary htn - f/u new ECHO -strict I/O -daily weights - continue coreg 25 mg po q 12 - continue losartan 100 mg po daily - continue lasix 40mg IV BID CAD s/p catherization at [place] (April 2017 - No stents placed per patient) CXR (06/07/17): Stable chronic prominence of b/l interstitial markings. No focal consolidation or pleural effusion. Atherosclerotic aortic calcifications. (see full report) - will need statin started unless otherwise contraindicated, will follow up with [facility] [employer] as outpatient tomorrow COPD -duonebs 3ml INH q6h PRN -Bipap as needed -Given Solumedrol 125mg IV once in ED Diabetes Mellitus, Type 2 - chronic A1C 5.9 (03/19) ISS Metformin 500mg PO Daily Glipizide 5mg PO Daily accuchecks Heart healthy, diabetic diet HTN - well controlled - Losartan 100 mg po daily - Lasix 40mg IV PO BID Pulmonary hypertension -treat underlying heart failure -outpatient pulmonary follow up GI/DVT ppx -SCDs -protonix 40 daily -fall precautions -Lovenox 40mg SC daily Disposition: Pt for discharge today. Outpatient follow up with Dr. Palmer, her md psychiatry tomorrow. Rob Brock PGY2 discussed with Dr. Ohara
[2017-06-08 10:54] VITALS: BP 121/60
[2017-06-08 10:55] VITALS: PULSE 74; TEMP 97.5; O2SAT 96
[2017-06-08] MEDS ORDERED: Glucagon Recombinant 1 mg Inj IM PRN (10:57)
[2017-06-08] MEDS ORDERED: Dextrose 50% SYRINGE Inj (50 ml) IV PRN (10:57)
[2017-06-08 11:04] LABS: BASO # 0.1 K/uL (0.0-0.2); BASO % 1.2 % (0.0-2.0); EOS # 0.1 K/uL (0.0-0.7); EOS % 2.4 % (0.0-4.0); HEMOGLOBIN 11.5 g/dL (11.0-16.0); LYMPH # 1.8 K/uL (1.0-4.3); LYMPH % 29.7 % (20.0-40.0); MEAN CELL VOLUME 81.7 fL (81.0-99.0); MEAN CORPUSCULAR HEMOGLOBIN 27.3 pg (27.0-31.0); MEAN CORPUSCULAR HGB CONC 33.4 g/dL (33.0-37.0); MONO # 0.3 K/uL (0.0-0.8); MONO % 5.6 % (0.0-10.0); NEUT # 3.7 K/uL (1.8-7.0); NEUT % 61.1 % (50.0-75.0); RBC 4.19 Mil/uL (3.80-5.20); RED CELL DISTRIBUTION WIDTH 15.4 % (11.5-14.5)
[2017-06-08 11:18] LABS: ALB/GLOB RATIO 1.4 (1.0-2.1); ALBUMIN 3.8 g/dL (3.5-5.0); ALT/SGPT 30 U/L (9-52); AST/SGOT 24 U/L (14-36); BLOOD UREA NITROGEN 18 mg/dL (7-17); GFR AFRICAN-AMERICAN > 60; GFR NON-AFRICAN AMERICAN > 60
[2017-06-08] MEDS ORDERED: Potassium Chloride 20 mEq ER Tab PO ONE (11:33)
--- NOTE | 2017-06-08 14:36 | PCM.HF ---
Heart Failure Core Measure - Heart Failure Ejection Fraction: 40 % or Greater GEMA Inhibitor Prescribed: No Contraindication/Reason for not providing: ON ARB COMBO PILL Beta-Leydi Prescribed: Carvedilol Angiotensin II Receptor Leydi Prescribed: Yes AnticoagulationTherapy for Atrial Fibrillation/Atrialflutter: No Contraindication/Reason for not providing: NO AFIB Aldosterone Antagonist Prescribed: No Contraindication/Reason for not providing: EF > 40 Hydralazine Nitrate Prescribed: No Contraindication/Reason for not providing: EF > 40 Implantable Cardioverter Defibrillator Therapy: No Contraindication/Reason for not providing: EF > 40 Cardiac Resynchronization Therapy Prescribed: No Contraindication/Reason for not providing: EF > 40 - Follow up Will be discharged to: Home (HAS F/U APPT WITH [facility] [employer] HELPER, DR. TUTTLE, ) Follow Up Date (must be within 7 days from discharge): 06/09/17 Follow Up Time: 09:00
--- NOTE | 2017-06-08 17:34 | CARD ---
APPROVED REPORT EKG Measurement Heart [id number] DC 200P16 [id number] <Conclusion> Normal sinus rhythm Left axis deviation Left bundle branch block Abnormal ECG
--- NOTE | 2017-06-09 07:58 | HP ---
HISTORY OF PRESENT ILLNESS: A 77-year-old female chief complaint of weakness, fatigue, tiredness, and shortness of breath, came to the ER, found to have heart failure, was admitted to the hospital. PAST MEDICAL HISTORY: Congestive heart failure, COPD. MEDICATIONS: , albuterol and Lasix. PHYSICAL EXAMINATION: GENERAL: The patient is awake, alert and oriented. VITAL SIGNS: Temperature 98, pulse 90. HEENT: Within normal limits. NECK: Supple. CHEST: Symmetrical. HEART: Regular. ABDOMEN: Soft. EXTREMITIES: No edema. IMPRESSION AND PLAN: The patient has congestive heart failure. The patient to get bedrest, supportive care, diuresis. Shannen Ohara MD
[2017-06-09] MEDS ORDERED: Pantoprazole 40 mg EC Tab PO SCH (10:00)
--- NOTE | 2017-06-09 11:00 | CARD ---
APPROVED REPORT EKG Measurement Heart [id number] RI 176P-5 [id number] <Conclusion> Normal sinus rhythm Left axis deviation Left bundle branch block Abnormal ECG
== END 2017-06-08 15:20 | disposition home or self-care (01) | DRG 293 ==
LOC: C.ER 08:26 → C.9E 10:43 → C.6T 12:20
PROVIDERS: ADMIT Internal Medicine Pulmonary Disease; ATTEND Internal Medicine Pulmonary Disease
DX: I11.0 Hypertensive heart disease with heart failure (principal); E11.9 Type 2 diabetes mellitus without complications; I25.10 Atherosclerotic heart disease of native coronary artery without angina pectoris; I50.9 Heart failure, unspecified; Z79.4 Long term (current) use of insulin

== ENCOUNTER 2017-07-03 18:50 | Inpatient (IN) | payer MEDICARE, OTHER ==
[2017-07-03 18:55] VITALS: BMI 31.2
[2017-07-03] MEDS ORDERED: Sodium Bicarbonate (8.4%) 50 Meq Syringe ONE ×2 (18:56→19:17)
[2017-07-03 19:03] LABS: ARTERIAL BLOOD GAS HCO3 30.2 mmol/L (21-28); ARTERIAL BLOOD GAS PCO2 78 mm/Hg (35-45); ARTERIAL BLOOD GAS PO2 25 mm/Hg (80-100); ARTERIAL BLOOD GAS TCO2 40.8 mmol/L (22-28)
[2017-07-03] MEDS ORDERED: EPINEPHrine 1 mg/ml (1:1000) Inj ONE (19:18)
[2017-07-03 19:44] LABS: BASO # 0.1 K/uL (0.0-0.2); BASO % 0.5 % (0.0-2.0); EOS # 0.2 K/uL (0.0-0.7); EOS % 1.1 % (0.0-4.0); HEMOGLOBIN 10.8 g/dL (11.0-16.0); LYMPH # 5.2 K/uL (1.0-4.3); LYMPH % 31.2 % (20.0-40.0); MEAN CORPUSCULAR HEMOGLOBIN 27.3 pg (27.0-31.0); MEAN CORPUSCULAR HGB CONC 32.9 g/dL (33.0-37.0); MEAN PLATELET VOLUME 8.3 fL (7.2-11.7); MONO # 0.3 K/uL (0.0-0.8); MONO % 1.6 % (0.0-10.0); NEUT % 65.6 % (50.0-75.0); NRBC % 0.1 % (0.0-2.0); RBC 3.93 Mil/uL (3.80-5.20); RED CELL DISTRIBUTION WIDTH 16.3 % (11.5-14.5); WHITE BLOOD COUNT 16.7 K/uL (4.8-10.8)
[2017-07-03 19:44] LABS: VENOUS BLOOD GAS PCO2 60 mmHg (40-60); VENOUS BLOOD GAS PO2 26 mm/Hg (30-55); VENOUS BLOOD PH 7.33 (7.32-7.43)
[2017-07-03 19:56] LABS: INR 1.3; PROTHROMBIN TIME 14.6 SECONDS (9.7-12.2)
[2017-07-03 19:58] LABS: ALB/GLOB RATIO 1.2 (1.0-2.1); ALBUMIN 2.6 g/dL (3.5-5.0); ALT/SGPT 616 U/L (9-52); AST/SGOT 697 U/L (14-36); BLOOD UREA NITROGEN 16 mg/dL (7-17); CALCIUM 7.9 mg/dl (8.6-10.4); GFR AFRICAN-AMERICAN > 60; GFR NON-AFRICAN AMERICAN > 60
[2017-07-03 20:11] LABS: SQUAMOUS EPITHIAL 1 /hpf (0-5); URINE AMORPHOUS SEDIMENT OCC /ul (<OCC); URINE BILIRUBIN NEGATIVE (NEGATIVE); URINE BLOOD 1+ (NEGATIVE); URINE CLARITY Hazy (Clear); URINE COLOR Yellow (YELLOW); URINE GLUCOSE (UA) 3+ mg/dL (Normal); URINE LEUKOCYTE ESTERASE NEG Leu/uL (Negative); URINE PROTEIN 3+ mg/dL (NEGATIVE); URINE UROBILINOGEN NORMAL mg/dL (0.2-1.0)
[2017-07-03 20:16] VITALS: RESP 16; O2SAT 100
--- NOTE | 2017-07-03 20:16 | C.PDOC ---
Chief Complaint (Nursing): Cardiac Arrest Past Medical History - Medical History PMH: Arthritis (as per previous triage), CHF (as per previous triage), Diabetes , HTN (as per previous triage), Pneumonia (as per previous triage), TIA (as per previous triage) - [facility] Procedures ASSISTANCE WITH RESPIRATORY VENTILATION, >96 HRS, CPAP (02/09/17) Family History: States: Unknown Family Hx - Social History Hx Tobacco Use: No Hx Alcohol Use: No Hx Substance Use: No - Immunization History Hx Tetanus Toxoid Vaccination: No Hx Influenza Vaccination: No Hx Pneumococcal Vaccination: No Disposition - Disposition
--- NOTE | 2017-07-03 20:26 | C.PDOC ---
History Of Present Illness 77 year old female brought in by ambulance for cardiac arrest witnessed at the [facility]. Pt had picked up approx 4 bottle of hypertension medications but unclear if she had taken any. Patient collapsed at approximately 6:10pm. No head trauma was witnessed. CPR was initiated by local firefighters with down time of 2-5 minutes. EMS and paramedics then arrived, ACLS protocols followed, and patient received 1 shock in the field and had persistent PEA. On arrival, patient with fixed, dilated pupils. JULIENNE device giving compressions. ET tube in place, 27 cm at the lips. Time Seen by Provider: 07/03/17 18:51 Chief Complaint (Nursing): Cardiac Arrest History Per: EMS Reason For Code Blue: Full Arrest Circumstances: Brought To ED By EMS Arrest Witnessed By: By-stander CPR Initiated Prior To MD Arrival?: Yes Down-Time Before ACLS: Mins (2-5) Treatment Initiated Prior To MD Arrival: Yes: CPR, Intubation, Defibrillation, ACLS Medication Initiation Medications Given Prior To MD Arrival: Yes: Epinephrine (3), Sodium Bicarb (1) - Initial Findings Mentation: Unresponsive Rhythm: PEA Past Medical History Reviewed: Historical Data, Nursing Documentation, Vital Signs Vital Signs: Last Vital Signs Temp 97 F L 07/03/17 19:20 Pulse 76 07/03/17 21:05 Resp 16 07/03/17 21:05 BP 121/77 07/03/17 20:45 Pulse Ox 100 07/04/17 00:14 - Medical History PMH: Arthritis (as per previous triage), CHF (as per previous triage), Diabetes , HTN (as per previous triage), Pneumonia (as per previous triage), TIA (as per previous triage) Surgical History: No Surg Hx - [facility] Procedures ASSISTANCE WITH RESPIRATORY VENTILATION, >96 HRS, CPAP (02/09/17) Family History: States: Unknown Family Hx - Social History Hx Tobacco Use: No Hx Alcohol Use: No Hx Substance Use: No - Immunization History Hx Tetanus Toxoid Vaccination: No Hx Influenza Vaccination: No Hx Pneumococcal Vaccination: No Review Of Systems Review Of Systems: ROS cannot be obtained secondary to pt's inabilty to answer questions. Physical Exam - Physical Exam Skin: Warm, Dry, No Rash Head: Atraumatic, Normacephalic Eye(s): bilateral: Other (fixed, dilated pupils bilaterally) Nose: Normal Neck: Other (ET tube in place) Chest: Symmetrical Respiratory: Normal Breath Sounds (on the right), Decreased Breath Sounds (on the left) Gastrointestinal/Abdominal: Soft, No Tenderness, No Distention Extremity: No Pedal Edema, No Calf Tenderness, No Deformity Neurological/Psych: Other (Unresponsive) ED Course And Treatment - Laboratory Results Result Diagrams: 07/03/17 19:39 07/03/17 19:39 ECG: Interpreted By Me, Viewed By Me ECG Rhythm: Sinus Rhythm, R BBB Rate From EC O2 Sat by Pulse Oximetry: 100 (RA) Pulse Ox Interpretation: Normal - CT Scan/US CT Head Other Rad Studies (CT/US): Read By Radiologist, Radiology Report Reviewed CT/US Interpretation: IMPRESSION: Contrecoup injury consistent with presence of post traumatic contusion of the bifrontal area with. evidence of concomitant subdural and subarachnoid blood components. No midline shift. Marked soft tissue swelling of the left parietal occipital scalp with a subtle hairline fracture left. occipital bone. Sinus disease as above. Dictated and Authenticated by: Robert Ray MD. 07/03/2017 9:21 PM Eastern Time ([place] & [place]) Medical Decision Making Medical Decision Makin:57 Ordered labs, EKG, CXR, and CT Head ACLS protocol followed. Patient regained spontaneous pulses for approximately 20 min. Repeat Neuro examination shows reactive pupils but no spontaneous movement of extremities. Patient then deteriorated into PEA. ACLS Protocol was restarted and spontaneous pulses was again achieved. ET tube pulled back to 20 cm at the lips. Good breath sounds bilaterally. See code sheet for ACLS protocol Repeat EKG shows normal sinus rhythm with L BBB, rate of 90 bpm Discussed w/ Dr. Mccloud, furnace repairer on-call, at 7:30 pm. Discussed w/ Dr. Ohara, medicine on-call, ok to admit Disposition Doctor Will See Patient In The: Hospital Counseled Patient/Family Regarding: Studies Performed, Diagnosis - Disposition Disposition: HOSPITALIZED Disposition Time: 19:44 Condition: CRITICAL - POA Present On Arrival: Poor Glycemic Control - Clinical Impression Clinical Impression: Cardiac arrest, Head trauma, Subdural hematoma caused by concussion, Subarachnoid hemorrhage after traumatic injury without open intracranial wound, with prolonged loss of consciousness without return to pre-existing level of consciousness Critical Care Time - Critical Care Note Total Time (in mins): 90 Documented critical care: time excludes all time spent performing seperately billable procedures. - Scribe Statement The provider has reviewed the documentation as recorded by the Scribe (Nelda Chris) Provider Attestation: All medical record entries made by the Scribe were at my direction and personally dictated by me. I have reviewed the chart and agree that the record accurately reflects my personal performance of the history, physical exam, medical decision making, and the department course for this patient. I have also personally directed, reviewed, and agree with the discharge instructions and disposition.
--- NOTE | 2017-07-03 20:31 | CP.PCM.CON ---
History of Present Illness - History of Present Illness History of Present Illness: 77 y/o female with h/o DM ,COPD,CAD,CHF,(EF 50%,diastolic dysfunction),moderate AR,mild Pulmonary HTN had witnessed cardiac arrest at [facility].. Patient collapsed at approximately 6:10pm. CPR was initiated by local firefighters with down time of 2-5 minutes. EMS and paramedics then arrived, ACLS protocols followed, and patient was shocked in the field and had persistent PEA. On arrival in ER , patient with fixed, dilated pupils. JULIENNE device giving compressions. ET tube in place, ACLS protocol followed. Patient regained spontaneous pulses for approximately 20 min. Repeat Neuro examination shows reactive pupils but no spontaneous movement of extremities. Patient then deteriorated into PEA. ACLS Protocol was restarted ,4 epi and 5 Bicarb given and spontaneous pulses was again achieved. Repeat EKG shows normal sinus rhythm with L BBB, rate of 90 bpm patient had recent cardiac cath (06/09/17) and was told that she may require a pacemaker and to try some new medications prior to decision.According to the sister she probably went to [facility] today to get the medications. History from ER notes,sister and previous notes Patient unresponsive Review of Systems - Review of Systems Systems not reviewed;Unavailable: Acuity of Condition (ROS unavailable due to mental status) Past Patient History - Infectious Disease Hx of Infectious Diseases: None - Past Medical History & Family History Past Medical History?: Yes - Past Social History Smoking Status: Never Smoked Occupation: retired Alcohol: None Drugs: Denies - CARDIAC Hx Congestive Heart Failure: Yes (as per previous triage) Hx Hypertension: Yes (as per previous triage) - PULMONARY Hx Pneumonia: Yes (as per previous triage) - NEUROLOGICAL Hx Transient Ischemic Attacks (TIA): Yes (as per previous triage) - HEENT Hx HEENT Problems: Yes Other/Comment: left ear problems hearing - ENDOCRINE/METABOLIC Hx Endocrine Disorders: Yes Hx Diabetes Mellitus Type 2: Yes (as per previous triage) - HEMATOLOGICAL/ONCOLOGICAL Hx Blood Disorders: No - INTEGUMENTARY Hx Dermatological Problems: No - MUSCULOSKELETAL/RHEUMATOLOGICAL Hx Arthritis: Yes (as per previous triage) - GASTROINTESTINAL Hx Gastrointestinal Disorders: No - GENITOURINARY/GYNECOLOGICAL Hx Genitourinary Disorders: No - PSYCHIATRIC Hx Substance Use: No - SURGICAL HISTORY Hx Surgeries: Yes Hx Cardiac Catheterization: Yes (as per previous triage) - ANESTHESIA Hx Anesthesia: Yes Hx Anesthesia Reactions: No Hx Malignant Hyperthermia: No Meds Allergies/Adverse Reactions: Allergies Allergy/AdvReac Type Severity Reaction Status Date / Time diazepam [From Valium] Allergy Verified 04/07/17 08:28 Physical Exam - Constitutional Additional comments: orally intubated,unresponsive - Head Exam Head Exam: NORMOCEPHALIC Additional comments: soft fluctuant lump left posterior scalp - Eye Exam Additional comments: 2mm with sluggish reaction to light - ENT Exam ENT Exam: Mucous Membranes Moist - Neck Exam Neck exam: Positive for: Normal Inspection - Respiratory Exam Respiratory Exam: Clear to Auscultation Bilateral - Cardiovascular Exam Cardiovascular Exam: REGULAR RHYTHM. absent: JVD - GI/Abdominal Exam GI & Abdominal Exam: Normal Bowel Sounds, Soft. absent: Distended - Extremities Exam Extremities exam: Positive for: normal inspection, pedal pulses present. Negative for: pedal edema - Neurological Exam Neurological exam: Altered - Skin Skin Exam: Normal Color, Warm Results - Vital Signs Recent Vital Signs: Last Vital Signs Temp 97 F L 07/03/17 19:20 Pulse 80 07/03/17 19:57 Resp 16 07/03/17 19:57 BP 131/67 07/03/17 19:57 Pulse Ox 100 07/03/17 19:57 - Labs Result Diagrams: 07/03/17 19:39 07/03/17 19:39 Labs: Laboratory Results - last 24 hr 07/03/17 07/03/17 07/03/17 18:59 18:59 19:39 WBC 16.7 H D RBC 3.93 Hgb 10.8 L Hct 32.7 L MCV 83.0 MCH 27.3 MCHC 32.9 L RDW 16.3 H Plt Count 144 MPV 8.3 Neut % (Auto) 65.6 Lymph % (Auto) 31.2 [place] % (Auto) 1.6 Eos % (Auto) 1.1 Baso % (Auto) 0.5 Neut # (Auto) 11.0 H Lymph # (Auto) 5.2 H [place] # (Auto) 0.3 Eos # (Auto) 0.2 Baso # (Auto) 0.1 PT INR APTT Puncture Site Abg pCO2 78 H* pO2 25 L* HCO3 30.2 H ABG pH 7.30 L ABG Total CO2 40.8 H ABG O2 Saturation 46.0 L ABG Base Excess 8.8 H Rebel Test Na ABG Potassium 3.9 VBG pH VBG pCO2 VBG HCO3 VBG Total CO2 VBG O2 Sat (Calc) VBG Base Excess VBG Potassium Sodium 142.0 Chloride 99.0 Glucose 281 H Lactate 7.4 H* FiO2 PEEP Crit Value Called To Dr meyers Crit Value Called By Jakob diaz Crit Value Read Back Y Blood Gas Notified Time 1902 Potassium Carbon Dioxide Anion Gap BUN Creatinine Est GFR ( Amer) Est GFR (Non-Af Amer) POC Glucose (mg/dL) 252 H Random Glucose Calcium Total Bilirubin AST ALT Alkaline Phosphatase Total Creatine Kinase CK-MB (Mass) Troponin I Total Protein Albumin Globulin Albumin/Globulin Ratio Arterial Blood Potassium 3.9 Venous Blood Potassium Urine Color Urine Clarity Urine pH Ur Specific [place] Urine Protein Urine Glucose (UA) Urine Ketones Urine Blood Urine Nitrate Urine Bilirubin Urine Urobilinogen Ur Leukocyte Esterase Urine WBC (Auto) Urine RBC (Auto) Ur Squamous Epith Cells Amorphous Sediment 07/03/17 07/03/17 07/03/17 19:39 19:39 19:40 WBC RBC Hgb Hct MCV MCH MCHC RDW Plt Count MPV Neut % (Auto) Lymph % (Auto) [place] % (Auto) Eos % (Auto) Baso % (Auto) Neut # (Auto) Lymph # (Auto) [place] # (Auto) Eos # (Auto) Baso # (Auto) PT 14.6 H INR 1.3 APTT 40 H Puncture Site pCO2 pO2 26 L HCO3 ABG pH ABG Total CO2 ABG O2 Saturation ABG Base Excess Rebel Test ABG Potassium VBG pH 7.33 VBG pCO2 60 VBG HCO3 26.6 VBG Total CO2 33.4 H VBG O2 Sat (Calc) 50.9 VBG Base Excess 4.0 H VBG Potassium 4.3 Sodium 145 143.0 Chloride 97 L 101.0 Glucose 268 H Lactate 8.1 H* FiO2 100.0 PEEP 5 Crit Value Called To Dr meyers Crit Value Called By Giovani wyatt Crit Value Read Back Y Blood Gas Notified Time 1943 Potassium 4.8 Carbon Dioxide 29 Anion Gap 23 H BUN 16 Creatinine 0.8 Est GFR ( Amer) > 60 Est GFR (Non-Af Amer) > 60 POC Glucose (mg/dL) Random Glucose 262 H Calcium 7.9 L Total Bilirubin 0.6 AST 697 H D ALT 616 H D Alkaline Phosphatase 75 Total Creatine Kinase 56 CK-MB (Mass) 1.00 Troponin I < 0.0120 Total Protein 4.7 L Albumin 2.6 L D Globulin 2.1 L Albumin/Globulin Ratio 1.2 Arterial Blood Potassium Venous Blood Potassium 4.3 Urine Color Urine Clarity Urine pH Ur Specific [place] Urine Protein Urine Glucose (UA) Urine Ketones Urine Blood Urine Nitrate Urine Bilirubin Urine Urobilinogen Ur Leukocyte Esterase Urine WBC (Auto) Urine RBC (Auto) Ur Squamous Epith Cells Amorphous Sediment 07/03/17 19:49 WBC RBC Hgb Hct MCV MCH MCHC RDW Plt Count MPV Neut % (Auto) Lymph % (Auto) [place] % (Auto) Eos % (Auto) Baso % (Auto) Neut # (Auto) Lymph # (Auto) [place] # (Auto) Eos # (Auto) Baso # (Auto) PT INR APTT Puncture Site pCO2 pO2 HCO3 ABG pH ABG Total CO2 ABG O2 Saturation ABG Base Excess Rebel Test ABG Potassium VBG pH VBG pCO2 VBG HCO3 VBG Total CO2 VBG O2 Sat (Calc) VBG Base Excess VBG Potassium Sodium Chloride Glucose Lactate FiO2 PEEP Crit Value Called To Crit Value Called By Crit Value Read Back Blood Gas Notified Time Potassium Carbon Dioxide Anion Gap BUN Creatinine Est GFR ( Amer) Est GFR (Non-Af Amer) POC Glucose (mg/dL) Random Glucose Calcium Total Bilirubin AST ALT Alkaline Phosphatase Total Creatine Kinase CK-MB (Mass) Troponin I Total Protein Albumin Globulin Albumin/Globulin Ratio Arterial Blood Potassium Venous Blood Potassium Urine Color Yellow Urine Clarity Hazy Urine pH 6.0 Ur Specific [place] 1.017 Urine Protein 3+ H Urine Glucose (UA) 3+ H Urine Ketones Trace Urine Blood 1+ H Urine Nitrate Negative Urine Bilirubin Negative Urine Urobilinogen Normal Ur Leukocyte Esterase Neg Urine WBC (Auto) 22 H Urine RBC (Auto) 128 H Ur Squamous Epith Cells 1 Amorphous Sediment Occ H - EKG Data EKG shows normal: Sinus rhythm - EKG Data EKG comments: NSR,rate 90.min,LBBB,LAD - Imaging and Cardiology Chest x-ray Status: Image reviewed by me Assessment & Plan - Assessment and Plan (Free Text) Assessment: 1.Cardiac Arrest,witnessed s/p CPR/ Altered mental status,respiratory failure patient to transferred to ICU after Head CT.If CT negative for bleed will follow induced hypothermia protocol. 2.CAD/HTN/ CHF 3.DM 4.Elevated LFT spoke to patients sister,aware of patients condition
[2017-07-03] MEDS ORDERED: (Novolin R) Insulin Human Regular 100 units/ml vial SC SCH (21:45)
[2017-07-04 00:34] VITALS: TEMP 96.7
[2017-07-04 01:01] VITALS: BP 151/77; PULSE 82
--- NOTE | 2017-07-04 08:47 | CT ---
PROCEDURE: CT HEAD WITHOUT CONTRAST. HISTORY: r/o bleed COMPARISON: None available. TECHNIQUE: Axial computed tomography images were obtained through the head/brain without intravenous contrast. Radiation dose: Total exam DLP = 967 mGy-cm. This CT exam was performed using one or more of the following dose reduction techniques: Automated exposure control, adjustment of the mA and/or kV according to patient size, and/or use of iterative reconstruction technique. FINDINGS: HEMORRHAGE: Posttraumatic subdural bleed of the bifrontal convexities and adjacent contusion of the cortices. Also noted is subarachnoid hemorrhage in close proximity likely posttraumatic as well. Moderate thickening along the anterior falx which suggests subdural hemorrhagic involvement in this region. BRAIN: As above. VENTRICLES: As above. CALVARIUM: Nondisplaced hairline fracture associated with the left occipital bone. PARANASAL SINUSES: Small amount of fluid in the maxillary sinuses. MASTOID AIR CELLS: Unremarkable as visualized. No inflammatory changes. OTHER FINDINGS: Prominent soft tissue hematoma in the posterior occipital parietal scalp. IMPRESSION: Posttraumatic subdural bleed at the bifrontal convexities with adjacent contusion of the cortices. Moderate thickening along the anterior falx which suggests subdural hemorrhagic involvement in this region. Subarachnoid hemorrhage in close proximity likely posttraumatic as well. Marked soft tissue swelling of the left parieto-occipital scalp within a subtle hairline fracture of the left occipital bone. Sinus disease as above. These findings were preliminarily reported at 9:21 p.m. on 07/03/[address] Robert Ray from [facility].
--- NOTE | 2017-07-04 11:27 | CARD ---
APPROVED REPORT EKG Measurement Heart [id number] [place] [id number] <Conclusion> Normal sinus rhythm Left axis deviation Left bundle branch block Abnormal ECG
--- NOTE | 2017-07-04 11:27 | CARD ---
APPROVED REPORT EKG Measurement Heart [id number] <Conclusion> Sinus rhythm with fusion complexes Right bundle branch block Septal infarct, age undetermined Possible Lateral infarct, age undetermined T wave abnormality, consider inferior ischemia Abnormal ECG
--- NOTE | 2017-07-04 11:54 | RAD ---
HISTORY: Status post cardiac arrest. Endotracheal tube placement COMPARISON: 06/07/2017 FINDINGS: LUNGS: Pulmonary edema, moderate. PLEURA: No significant pleural effusion identified, no pneumothorax apparent. CARDIOVASCULAR: Cardiomegaly/ CHF. OSSEOUS STRUCTURES: No significant abnormalities. VISUALIZED UPPER ABDOMEN: Normal. OTHER FINDINGS: Satisfactory position of recently placed endotracheal tube. IMPRESSION: Cardiomegaly and presumed cardiogenic pulmonary edema. Endotracheal tube in satisfactory position. Concordant results with the preliminary interpretation rendered by the emergency department physician procedure.
== END 2017-07-04 01:05 | disposition short-term general hospital (02) | DRG 82 ==
LOC: C.ER 18:50 → C.9I 19:29
PROVIDERS: ADMIT Internal Medicine Pulmonary Disease; ATTEND Internal Medicine Pulmonary Disease
DX: S06.6X9A Traumatic subarachnoid hemorrhage with loss of consciousness of unspecified duration, initial encounter (principal); I46.9 Cardiac arrest, cause unspecified; J96.90 Respiratory failure, unspecified, unspecified whether with hypoxia or hypercapnia; E11.9 Type 2 diabetes mellitus without complications; H57.04 Mydriasis; I11.0 Hypertensive heart disease with heart failure; I25.10 Atherosclerotic heart disease of native coronary artery without angina pectoris; I27.20 Pulmonary hypertension, unspecified; W18.39XA Other fall on same level, initial encounter; Z86.73 Personal history of transient ischemic attack (TIA), and cerebral infarction without residual deficits; Z87.01 Personal history of pneumonia (recurrent); J44.9 Chronic obstructive pulmonary disease, unspecified; I50.9 Heart failure, unspecified